=== PATIENT | female | born 1990 | race Caucasian/White ===

== ENCOUNTER 2016-04-09 11:48 | Outpatient (CLI) | payer MEDICAID ==
[2016-04-09 12:35] LABS: APPEARANCE,URINE CLOUDY; BILIRUBIN,URINE NEGATIVE (NEGATIVE); GLUCOSE, URINE NEGATIVE (NEGATIVE); KETONES,URINE TRACE mg/dL (NEGATIVE); LEUKOCYTE ESTERASE,URINE SMALL (NEGATIVE); NITRITE,URINE NEGATIVE (NEGATIVE); PROTEIN,URINE 100 mg/dL (NEGATIVE); UROBILINOGEN,URINE NEGATIVE mg/dL (<2.0)
[2016-04-09 12:55] LABS: URINE BARBITURATES SCREEN NEGATIVE; URINE METHADONE SCREEN NEGATIVE; URINE PHENCYCLIDINE SCREEN NEGATIVE
--- NOTE | 2016-04-09 13:27 | Non Stress Test Report ---
Non Stress Test Datetime Report Generated by CPN: 04/09/2016 13:27 DEMOGRAPHIC EGA NST: 38.6 EGA NST: 34.3 INDICATION Indication for Study: Decreased Movement Indication for Study: Other Indication for Study (NST) Other: labor check MONITORING Monitor Explained: Monitor Explained; Test Explained; Patient Verbalized Understanding Monitor Explained: Monitor Explained; Test Explained; Patient Verbalized Understanding Time on Monitor: 04/09/2016 12:02 Time on Monitor: 03/09/2016 16:10 Time off Monitor: 04/09/2016 13:15 Time off Monitor: 03/09/2016 16:50 NST Duration: 73 NST Duration: 40 NST INTERVENTIONS NST Interventions: PO Hydration; Reposition Patient NST Interventions: PO Hydration; Reposition Patient; Other NST Interventions Other: CONSTANTINO Physician Notified NST: Dr. Johnson Physician Notified NST: Dr. Santamaria BABY A: [id number] BABY A Movement : Present Movement : Present Contraction Frequency : occasional Contraction Frequency : irregular FHR Baseline : 155 FHR Baseline : 135 Accelerations : 15X15 Accelerations : 15X15 Decelerations : None Decelerations : None Variability : Moderate 6-25bpm Variability : Moderate 6-25bpm NST Review: Meets Criteria for Reactive NST NST Review: Meets Criteria for Reactive NST NST Review and Verified By : Nehal Mai RN NST Results: Reactive NST Results: Reactive NST REPORT Report Trigger: Send Report
--- NOTE | 2016-04-10 12:16 | Antepartum Discharge Summary ---
Antepartum DC Datetime Report Generated by CPN: 04/10/2016 12:15 DIET/ACTIVITY/RESTRICTIONS Diet: Regular (04/09/2016 13:27:Patti Johnson RN) Activity: Normal Activity (04/09/2016 13:27:Patti Johnson, RN) TEACHING/INSTRUCTIONS/REFERRALS Instructions Given To: patient and patient's (04/09/2016 13:27:Patti Johnson RN) Instructions Understood: Patient Verbalized Understanding; Support Person Verbalized Understanding (04/09/2016 13:27:Patti Johnson RN) Referrals: None (04/09/2016 13:27:Patti Johnson RN) Educational Materials- Other: kick counts and dehydration (04/09/2016 13:27:Patti Johnson RN) DISCHARGE INFORMATION Discharged AMA: No (04/09/2016 13:27:Patti Johnson RN) Discharge Date/Time: 04/09/2016 13:25 (04/09/2016 13:27:Patti Johnson RN) Discharged To: Home (04/09/2016 13:27:Patti Johnson RN) Discharge Provider Name: Dr. Johnson (04/09/2016 13:27:Patti Johnson RN) Accompanied By: (04/09/2016 13:27:Patti Johnson RN) Discharge Method: Ambulatory (04/09/2016 13:27:Patti Johnson RN) Condition: Stable (04/09/2016 13:27:Patti Johnson RN) FOLLOW UP INFORMATION Follow Up With: [facility] (04/09/2016 13:27:Patti Johnson RN) Follow Up On: As Scheduled (04/09/2016 13:27:Patti Johnson RN) Follow Up Phone Number: [facility] - (04/09/2016 13:27:Patti Johnson RN) GENERAL INSTR-CALL PROVIDER IF: Contractions: Contractions or cramps become more frequent than 8 in one hour or 4 in 20 minutes; Regular painful contractions every 5 minutes or less for one hour. Time your contractions from the beginning of one to the beginning of the next (04/09/2016 13:27:Patti Johnson RN) Pressure: Pressure in your vagina or lower abdomen that may feel like the baby is pushing down (04/09/2016 13:27:Patti Johnson RN) Period Like Cramps: Period-like cramps or low dull backache that may come and go (04/09/2016 13:27:Patti Johnson RN) Cramps/Diarrhea: Abdominal cramps that may be accompanied by diarrhea (04/09/2016 13:27:Patti Johnson RN) Gush of Fluid/Blood: Gush of fluid or blood from your vagina (it is normal to have spotting after vaginal exam or intercourse) (04/09/2016 13:27:Patti Johnson RN) Vaginal Discharge: Change in the type or amount of vaginal discharge (04/09/2016 13:27:Patti Johnson RN) Decreased Movement: Your baby is not moving as much as usual- 4 movements in 1 hour after drinking and resting on side (04/09/2016 13:27:Patti Johnson RN) Temperature: Temperature greater than 100.0(F) orally (04/09/2016 13:27:Patti Johnson RN) Hypertension Signs/Symptoms: Severe headache which is not relieved 30 minutes after taking Tylenol(Acetaminophen); Blurry vision or spots before your eyes; Severe heartburn or pain on the upper right side of your abdomen that is not relieved by an antacid; Increased swelling in your face, hands or feet (04/09/2016 13:27:Patti Johnson RN) Urinary Output: Decreased urinary output or dark colored urine (04/09/2016 13:27:Patti Johnson RN)
--- NOTE | 2016-04-10 12:16 | L&D Current Admission ---
Current Admit Datetime Report Generated by CPN: 04/10/2016 12:16 ADMISSION INFORMATION Chief Complaint: Decreased Movement (04/09/2016 12:00:ADRYAN Luke
--- NOTE | 2016-04-10 12:17 | L&D Flow Sheet ---
LD Flowsheet Datetime Report Generated by CPN: 04/10/2016 12:17 Datetime: 04/09/2016 13:20 Communication Communication Comments: Kick counts and dehydration care notes reviewed with patient. patient verbalizes understanding (Patti Alex, RN) Datetime: 04/09/2016 13:15 Communication Communication Comments: monitors removed for patient discharge (Patti Johnson, RN) Communication Communication Comments: Dr. Johnson notified of patient with complaints of no movement since yesterday evening. Lab results reported, patient urged to drink more water. Order received to check patient's cervix and discharge patient home if less than 3 cm. (Patti Johnson, RN) Datetime: 04/09/2016 13:14 Vaginal Exam Dilatation (cm): 1.5 (Patti Johnson RN) Effacement (%): 60 (Patti Johnson RN) Station: -2 (Patti Johnson RN) Exam by: Barbara Johnson RN (Patti Johnson RN) Vaginal Bleeding: None (Patti Johnson RN) Cervix, Consistency: Moderate (Patti Johnson RN) Cervix, Position: Posterior (Patti Johnson RN) Datetime: 04/09/2016 13:04 Vital Signs NBP Sys/Clarisa/Mean (mmHg): 128 (QS system process) : 70 (QS system process) : 92 (QS system process) Pulse: 82 (QS system process) Datetime: 04/09/2016 12:49 Vital Signs NBP Sys/Clarisa/Mean (mmHg): 127 (QS system process) : 58 (QS system process) : 83 (QS system process) Pulse: 82 (QS system process) Datetime: 04/09/2016 12:34 Vital Signs NBP Sys/Clarisa/Mean (mmHg): 124 (QS system process) : 67 (QS system process) : 87 (QS system process) Pulse: 93 (QS system process) Datetime: 04/09/2016 12:19 Vital Signs NBP Sys/Clarisa/Mean (mmHg): 135 (QS system process) : 74 (QS system process) : 97 (QS system process) Pulse: 88 (QS system process) LaborFlag: OB Triage (QS system process) Datetime: 04/09/2016 12:04 Vital Signs NBP Sys/Clarisa/Mean (mmHg): 135 (QS system process) : 77 (QS system process) : 98 (QS system process) Pulse: 107 (QS system process) LaborFlag: OB Triage (QS system process) Datetime: 04/09/2016 12:00 Uterine Activity Monitor Interventions for UA: [place]pearl Adjusted (Patti Johnson RN) Resting Tone (Palpate): Relaxed (Patti Johnson RN) Assessment A Monitor Mode: External US (Patti Johnson, RN) Pain Pain Scale: 0 (Patti Johnson RN) Pain Presence: None/Denies (Patti Johnson RN) Pain Type: N/A (Patti Johnson RN) Pain Goal: 1 (Patti Johnsno RN) Pain Relief Measures: Comfort Measures (Patti Alex, RN) Pain Coping: Talking Through Contractions (Patti Johnson RN) Membrane Status: Intact (Patti Johnson RN) Vaginal Bleeding: None (Patti Johnson RN) Maternal Assessment Level of Consciousness: Fully Conscious (Patti Johnson RN) DTR's/Clonus: DTRs 2+; No Clonus (Patti Johnson RN) Headache: Denies (Patti Johnson RN) Breath Sounds, Left: Clear and Equal (Patti Johnson RN) Breath Sounds, Right: Clear and Equal (Patti Johnson RN) Nausea/Vomiting: Denies (Patti Johnson RN) RUQ Epigastric Pain: Present (Annotations: RUQ pain present. Patient states she has had pain since saturday) (Patti Johnson RN) Patient Care Oxygen Method: Room Air (Patti Johnson RN) Patient Position/Activity: Left Tilt; Semi-Fowlers (Patti Johnson RN) I/O Interventions: Popsicle (Patti Johnson RN) Teaching Instructional Method: Verbal (Patti Johnson, RN) Plan of Care: Plan of Care Discussed (Patti Johnson, RN) Unit Routine: [place] to Room; Call Galvin; Bed; Visiting Policy (Patti Johnson, RN) LaborFlag: OB Triage (QS system process) Datetime: 03/09/2016 16:42 LaborFlag: OB Triage (QS system process) Datetime: 03/09/2016 16:30 LaborFlag: OB Triage (QS system process) Datetime: 03/09/2016 16:27 LaborFlag: OB Triage (QS system process) Datetime: 03/09/2016 16:12 LaborFlag: OB Triage (QS system process) Datetime: 03/09/2016 15:57 LaborFlag: OB Triage (QS system process) Datetime: 03/09/2016 15:43 LaborFlag: OB Triage (QS system process) Datetime: 02/24/2016 21:36 LaborFlag: Antepartum (QS system process) Datetime: 02/24/2016 21:30 Temperature (C): 36.7 (QS system process) LaborFlag: Antepartum (QS system process) Datetime: 02/24/2016 20:30 LaborFlag: Antepartum (QS system process) Datetime: 02/24/2016 20:12 LaborFlag: Antepartum (QS system process)
--- NOTE | 2016-04-10 12:17 | L&D General Admission ---
General Admit Datetime Report Generated by CPN: 04/10/2016 12:16 INFORMATION Para: 1 (04/09/2016 13:27:Patti Johnson, RN) Baby, Number in Womb: 1 (04/09/2016 13:27:Patti Johnson, RN) CARE Height (in): 65 (02/24/2016 21:49:QS system process) ALLERGIES Medication Allergies: No Known Allergies (04/09/2016) (04/09/2016 13:30:QS system process) LABS Blood Type: O Positive (02/24/2016 19:27:Raina Tristan RN) Antibody Screen: Negative (02/24/2016 19:27:Raina Tristan RN) Hepatitis B: Negative (02/24/2016 19:27:Raina Tristan RN) Rubella: Immune (02/24/2016 19:27:Raina Tristan RN)
--- NOTE | 2016-04-10 12:17 | L&D Discharge Summary ---
OB Discharge Summary Datetime Report Generated by CPN: 04/10/2016 12:17 DISCHARGE DIAGNOSIS Diagnosis/Symptoms: Decreased Movement Diagnoses/Symptoms Other: IUP at 38.6, movement present Treatment/Procedures Other: CONSTANTINO, PO hydration, reposition Gestation: 38.6 Number of Babies in Womb: 1 Parity: 1 DIET/ACTIVITY/RESTRICTIONS Diet: Regular Activity: Normal Activity TEACHING/INSTRUCTIONS/REFERRALS Instructions Given To: patient and patient's Instructions Understood: Patient Verbalized Understanding; Support Person Verbalized Understanding Referrals: None Educational Materials- Other: kick counts and dehydration DISCHARGE INFORMATION Discharged AMA: No Discharge Date/Time: 04/09/2016 13:25 Discharged To: Home Discharge Provider Name: Dr. Johnson Accompanied By: Discharge Method: Ambulatory Condition: Stable FOLLOW UP INFORMATION Follow Up With: [facility] Follow Up On: As Scheduled Follow Up Phone Number: [facility] - Comments: pt states verbal understanding of discharge instructions, denies questions or concerns. pt states she has appt on Saturday at 1330 and will keep appt as scheduled. GENERAL INSTR-CALL PROVIDER IF: Contractions: Contractions or cramps become more frequent than 8 in one hour or 4 in 20 minutes; Regular painful contractions every 5 minutes or less for one hour. Time your contractions from the beginning of one to the beginning of the next Pressure: Pressure in your vagina or lower abdomen that may feel like the baby is pushing down Period Like Cramps: Period-like cramps or low dull backache that may come and go Cramps/Diarrhea: Abdominal cramps that may be accompanied by diarrhea Gush of Fluid/Blood: Gush of fluid or blood from your vagina (it is normal to have spotting after vaginal exam or intercourse) Vaginal Discharge: Change in the type or amount of vaginal discharge Decreased Movement: Your baby is not moving as much as usual- 4 movements in 1 hour after drinking and resting on side Temperature: Temperature greater than 100.0(F) orally
--- NOTE | 2016-04-10 12:23 | Non Stress Test Report ---
Non Stress Test Datetime Report Generated by CPN: 04/10/2016 12:22 DEMOGRAPHIC EGA NST: 38.6 INDICATION Indication for Study: Decreased Movement MONITORING Monitor Explained: Monitor Explained; Test Explained; Patient Verbalized Understanding Time on Monitor: 04/09/2016 12:02 Time off Monitor: 04/09/2016 13:15 NST Duration: 73 NST INTERVENTIONS NST Interventions: PO Hydration; Reposition Patient Physician Notified NST: Dr. Alex BABY A Movement : Present Contraction Frequency : occasional FHR Baseline : 155 Accelerations : 15X15 Decelerations : None Variability : Moderate 6-25bpm NST Review: Meets Criteria for Reactive NST NST Review and Verified By : Nehal Mai RN NST Results: Reactive NST REPORT Report Trigger: Send Report
--- NOTE | 2016-04-11 06:08 | L&D General Admission ---
General Admit Datetime Report Generated by CPN: 04/11/2016 06:00 INFORMATION Patient Age: 25 (02/24/2016 19:02:QS system process) EDC: 04/17/2016 00:00 (02/24/2016 19:27:GOLDIE Meade) : 2 (02/24/2016 19:27:Chelsy Guerra RN) Para: 1 (04/09/2016 13:27:Patti Johnson RN) Term: 1 (02/24/2016 19:27:Chelsy Guerra RN) : 0 (02/24/2016 19:27:Chelsy Guerra RN) Spontaneous Abortions: 0 (02/24/2016 19:27:Chelsy Guerra RN) Induced Abortions: 0 (02/24/2016 19:27:Chelsy Guerra RN) Livin (02/24/2016 19:27:Chelsy Guerra RN) Cesareans: 0 (02/24/2016 19:27:Chelsy Guerra RN) VBACs: 0 (02/24/2016 19:27:Chelsy Guerra RN) Ectopic: 0 (02/24/2016 19:27:Chelsy Guerra RN) Multiple Births: 0 (02/24/2016 19:27:Chelsy Guerra RN) Baby, Number in Womb: 1 (04/09/2016 13:27:Patti Johnson RN) CARE Primary Computer Aided Design Operator: [email or web address] (02/24/2016 19:27:Chelsy Guerra RN) Adequate Care: Yes (02/24/2016 19:27:Chelsy Guerra RN) Height (in): 65 (02/24/2016 21:49:QS system process) ALLERGIES Medication Allergy: No (02/24/2016 19:27:Chelsy Guerra RN) Medication Allergies: No Known Allergies (04/09/2016) (04/09/2016 13:30:QS system process) Latex Allergy: No Latex Allergies (02/24/2016 19:27:Chelsy Guerra RN) Food Allergies: None (02/24/2016 19:27:Chelsy Guerra, RN) Environmental Allergies: None (02/24/2016 19:27:Chelsy Guerra, RN) COMMUNICATION Primary Language: East Timorese (02/24/2016 19:27:Chelsy Guerra, RN) Communication Barrier(s): None (02/24/2016 19:27:Chelsy Guerra, RN) DEMOGRAPHICS Address: [address] [place] [id number] (02/24/2016 19:02:QS system process) Zipcode: [phone] (02/24/2016 19:02:QS system process) Home (03/09/2016 15:22:QS system process) SSN: [id number] (02/24/2016 19:02:QS system process) Next of Kin Name: DERICK GOMEZ (02/24/2016 19:02:QS system process) Next of Kin (03/09/2016 15:22:QS system process) Next of Kin Relationship: SPO (02/24/2016 19:02:QS system process) Date of : 1990 (02/24/2016 19:02:QS system process) Marital Status: (02/24/2016 19:02:QS system process) Sex: Female (02/24/2016 19:02:QS system process) Race: (02/24/2016 19:02:QS system process) Ethnicity: Non- or (02/24/2016 19:02:QS system process) Rastafari: Bahai (02/24/2016 19:02:QS system process) DRUG AND ALCOHOL USE Alcohol: No (02/24/2016 19:27:Chelsy Guerra RN) Cigarettes: Never Smoker. [id number] (02/24/2016 19:27:Chelsy Charlie RN) Marijuana: No (02/24/2016 19:27:Chelsy Charlie RN) Cocaine: No (02/24/2016 19:27:Chelsygregory Guerra RN) Other Illicit Drugs: No (02/24/2016 19:27:Chelsy Guerra, RN) VACCINE HISTORY Influenza Vaccine: No (02/24/2016 19:27:Chelsy Guerra RN) Pneumococcal Vaccine: No (02/24/2016 19:27:Chelsy Guerra RN) Tetanus Vaccine: No (02/24/2016 19:27:Chelsy Guerra RN) Tdap Vaccine: No (02/24/2016 19:27:Chelsy Guerra RN) Hepatitis B Vaccine: Yes (02/24/2016 19:27:Chelsy Guerra RN) Pen Rider: [facility] (02/24/2016 19:27:Chelsy Guerra RN) Feeding Preference: Breast (02/24/2016 19:27:Chelsy Guerra RN) Benefit of Breast Feed Discussed: Yes (02/24/2016 19:27:Chelsy Guerra RN) Circumcision: Yes (02/24/2016 19:27:Chelsy Guerra RN) Classes Attended: No (02/24/2016 19:27:Chelsy Guerra RN) Tubal Ligation: Yes (02/24/2016 19:27:Chelsy Guerra RN) Tubal Authorization Signed: N/A (02/24/2016 19:27:Chelsy Guerra RN) Consent: N/A (02/24/2016 19:27:Chelsy Guerra RN) Consent Signed: N/A (02/24/2016 19:27:Chelsy Guerra RN) Pain Management Plans: Epidural (02/24/2016 19:27:Chelsy Guerra RN) Plans for Labor and Delivery: None (02/24/2016 19:27:Chelsy Guerra RN) Support Person: Derick (02/24/2016 19:27:Chelsy Guerra RN) Cultural/Spritual Practice: No (02/24/2016 19:27:Chelsy Guerra RN) Spir/Cult Dietary Needs: No (02/24/2016 19:27:Chelsy Guerra RN) LIVING SITUATION/DISCHARGE PLAN Living Arrangements: House (02/24/2016 19:27:Chelsy Guerra RN) Adequate Access to:: Electric; Heat; Refrigeration; Plumbing/Running water; Phone; Transportation (02/24/2016 19:27:Chelsy Guerra RN) WIC Program: Yes (02/24/2016 19:27:Chelsy Guerra RN) Discharge Physical Trainer Person: Derick (02/24/2016 19:27:Chelsy Guerra RN) Person to Help after Discharge: Derick (02/24/2016 19:27:Chelsy Guerra RN) Currently Using Commun Resources: Yes (02/24/2016 19:27:Chelsy Guerra RN) Specify Current Resource Used: Medicaid, EBT (02/24/2016 19:27:Chelsy Guerra RN) Outside Agency/[employer] Kindergarten Teacher: No (02/24/2016 19:27:Chelsy Guerra RN) Car Seat for Discharge: Yes (02/24/2016 19:27:Chelsy Guerra RN) Adoption Requested: No (02/24/2016 19:27:Chelsy Guerra RN) Pt Contact w/ Post : N/A (02/24/2016 19:27:Chelsy Guerra RN) LABS Blood Type: O Positive (02/24/2016 19:27:Raina Tristan RN) Antibody Screen: Negative (02/24/2016 19:27:Raina Tristan RN) Hemoglobin: 10.2 L (03/09/2016 16:11:QS system process) Hematocrit: 30.7 L (03/09/2016 16:11:QS system process) MCV: 89 (03/09/2016 16:11:QS system process) Hepatitis B: Negative (02/24/2016 19:27:Raina Tristan RN) Rubella: Immune (02/24/2016 19:27:Raina Tristan RN) OB/PREVIOUS HISTORY Previous Procedures: Ultrasound; NST (02/24/2016 19:27:Chelsy Guerra RN) Current Procedures: Ultrasound; NST (02/24/2016 19:27:Chelsy Guerra RN) History of Previous : No (02/24/2016 19:27:Chelsy Guerra RN) History of Gestational Diabetes: No (02/24/2016 19:27:Chelsy Guerra RN) History of PIH: Yes (02/24/2016 19:27:Chelsy Guerra RN) History of Incompetent Cervix: No (02/24/2016 19:27:Chelsy Guerra RN) History of Placenta Previa/Abrup: No (02/24/2016 19:27:Chelsy Guerra RN) History of Macrosomia: No (02/24/2016 19:27:Chelsy Guerra RN) History of IUGR: No (02/24/2016 19:27:Chelsy Guerra RN) History of Hemorrhage: No (02/24/2016 19:27:Chelsy Guerra RN) History of Loss/Stillborn: No (02/24/2016 19:27:Chelsy Guerra RN) History of : No (02/24/2016 19:27:Chelsy Guerra RN) History of D (Rh) Sensitization: No (02/24/2016 19:27:Chelsy Guerra RN) History Recurrent Loss/Stillborn: No (02/24/2016 19:27:Chelsy Guerra RN) History Depression/PP Depression: No (02/24/2016 19:27:Chelsy Guerra RN) History of Uterine Anomaly/PHILIP: No (02/24/2016 19:27:Chelsy Guerra RN) History of Infertility: No (02/24/2016 19:27:Chelsy Guerra RN) History of ART Treatment: No (02/24/2016 19:27:Chelsy Guerra RN) History of PHILIP: No (02/24/2016 19:27:Chelsy Guerra RN) Comments Obstetrical History: G1: 2014 induced for pre-e G2: current (02/24/2016 19:27:Chelsy Guerra RN) MEDICAL HISTORY Med Hx Diabetes: No (02/24/2016 19:27:Chelsy Guerra RN) Med Hx Hypertension: No (02/24/2016 19:27:Chelsy Guerra RN) Med Hx Heart Disease: No (02/24/2016 19:27:Chelsy Guerra RN) Med Hx Autoimmune Disorder: No (02/24/2016 19:27:Chelsy Guerra RN) Med Hx Kidney Disease/UTI: No (02/24/2016 19:27:Chelsy Guerra RN) Med Hx Neurologic/Epilepsy: No (02/24/2016 19:27:Chelsy Guerra RN) Med Hx Psychiatric Disorders: No (02/24/2016 19:27:Chelsy Guerra RN) Med Hx Hepatitis/Liver Disease: No (02/24/2016 19:27:Chelsy Guerra RN) Med Hx Varicosities/Phlebitis: No (02/24/2016 19:27:Chelsy Guerra RN) Med Hx Thyroid Dysfunction: No (02/24/2016 19:27:Chelsy Guerra RN) Med Hx Trauma/Violence: No (02/24/2016 19:27:Chelsy Guerra RN) Med Hx Blood Transfusion: No (02/24/2016 19:27:Chelsy Guerra RN) Med Hx Pulmonary (Asthma,TB): No (02/24/2016 19:27:Chelsy Guerra RN) Med Hx Breast: No (02/24/2016 19:27:Chelsy Guerra RN) Med Hx MARKET INTELLIGENCE CONSULTANT Surgery: No (02/24/2016 19:27:Chelsy Guerra RN) Med Hx Hospitalization/Surgery: Yes (02/24/2016 19:27:Chelsy Guerra RN) Med Hx Anesthetic Complications: No (02/24/2016 19:27:Chelsy Guerra RN) Med Hx Abnormal Pap Smear: No (02/24/2016 19:27:Chelsy Guerra RN) Other Medical Diseases: No (02/24/2016 19:27:Chelsy Guerra RN) Med Hx Significant Family Hx: No (02/24/2016 19:27:Chelsy Guerra RN) Details of Med/Surg Hx: childbirth (02/24/2016 19:27:Chelsy Guerra RN) INFECTIOUS HISTORY Inf Hx Gonorrhea: No (02/24/2016 19:27:Chelsy Guerra RN) Inf Hx Chlamydia: No (02/24/2016 19:27:Chelsy Guerra RN) Inf Hx Syphilis: No (02/24/2016 19:27:Chelsy Guerra RN) Inf Hx HIV/AIDS: No (02/24/2016 19:27:Chelsy Guerra RN) Inf Hx Human Papilloma Virus: No (02/24/2016 19:27:Chelsy Guerra RN) Inf Hx Pt/Partner Genital Herpes: No (02/24/2016 19:27:Chelsy Guerra RN) Inf Hx Tuberculosis/Exposure: No (02/24/2016 19:27:Chelsy Guerra RN) Inf Hx Hepatitis B,C: No (02/24/2016 19:27:Chelsy Guerra RN) Inf Hx Rash or Viral Illness: No (02/24/2016 19:27:Chelsy Guerra RN) GENETIC HISTORY Gen Hx Age >=35 at [place]: No (02/24/2016 19:27:Chelsy Guerra RN) Gen Hx Thalassemia: No (02/24/2016 19:27:Chelsy Guerra RN) Gen Hx Congenital Heart Defect: No (02/24/2016 19:27:Chelsy Guerra RN) Gen Hx Neural Tube Defect: No (02/24/2016 19:27:Chelsy Guerra RN) Gen Hx Down's Syndrome: No (02/24/2016 19:27:Chelsy Guerra RN) Gen Hx Angel-Sachs: No (02/24/2016 19:27:Chelsy Guerra RN) Gen Hx Omar: No (02/24/2016 19:27:Cehlsy Guerra RN) Gen Hx Familial Dysautonomia: No (02/24/2016 19:27:Chelsy Guerra RN) Gen Hx Sickle Cell Disease/Trait: No (02/24/2016 19:27:Chelsy Guerra RN) Gen Hx Hemophilia/Blood Disorder: No (02/24/2016 19:27:Chelsy Guerra RN) Gen Hx Muscular Dystrophy: No (02/24/2016 19:27:Chelsy Guerra RN) Gen Hx Cystic Fibrosis: No (02/24/2016 19:27:Chelsy Guerra RN) Gen Hx [place] Chorea: No (02/24/2016 19:27:Chelsy Guerra RN) Gen Hx Mental Retardation/Autism: No (02/24/2016 19:27:Chelsy Guerra RN) Gen Hx Tested for Fragile X: No (02/24/2016 19:27:Chelsy Guerra RN) Gen Hx Other Inher/Chromosomal: No (02/24/2016 19:27:Chelsy Guerra RN) Gen Hx Maternal Metabolic DO: No (02/24/2016 19:27:Chelsy Guerra RN) Gen Hx Pt Father or FOB Defect: No (02/24/2016 19:27:Chelsy Guerra RN) Gen Hx Other Genetic History: No (02/24/2016 19:27:Chelsy Guerra RN) Gen Hx Drugs/Meds since LMP: No (02/24/2016 19:27:Chelsy Guerra RN)
--- NOTE | 2016-04-11 06:08 | L&D Current Admission ---
Current Admit Datetime Report Generated by CPN: 04/11/2016 06:00 ADMISSION INFORMATION Chief Complaint: Decreased Movement (04/09/2016 12:00:ADRYAN Luke
--- NOTE | 2016-04-12 06:07 | L&D General Admission ---
General Admit Datetime Report Generated by CPN: 04/12/2016 06:00 INFORMATION Patient Age: 25 (02/24/2016 19:02:QS system process) EDC: 04/17/2016 00:00 (02/24/2016 19:27:GOLDIE Meade) : 2 (02/24/2016 19:27:Chelsy Guerra RN) Para: 1 (04/09/2016 13:27:Patti Johnson RN) Term: 1 (02/24/2016 19:27:Chelsy Guerra RN) : 0 (02/24/2016 19:27:Chelsy Geurra RN) Spontaneous Abortions: 0 (02/24/2016 19:27:Chelsy Guerra RN) Induced Abortions: 0 (02/24/2016 19:27:Chelsy Guerra RN) Livin (02/24/2016 19:27:Chelsy Guerra RN) Cesareans: 0 (02/24/2016 19:27:Chelsy Guerra RN) VBACs: 0 (02/24/2016 19:27:Chelsy Guerra RN) Ectopic: 0 (02/24/2016 19:27:Chelsy Guerra RN) Multiple Births: 0 (02/24/2016 19:27:Chelsy Guerra RN) Baby, Number in Womb: 1 (04/09/2016 13:27:Patti Johnson RN) CARE Primary Coin Purse Framer: [facility] (02/24/2016 19:27:Chelsy Guerra RN) Adequate Care: Yes (02/24/2016 19:27:Chelsy Guerra RN) Height (in): 65 (02/24/2016 21:49:QS system process) ALLERGIES Medication Allergy: No (02/24/2016 19:27:Chelsy Guerra RN) Medication Allergies: No Known Allergies (04/09/2016) (04/09/2016 13:30:QS system process) Latex Allergy: No Latex Allergies (02/24/2016 19:27:Chelsy Guerra RN) Food Allergies: None (02/24/2016 19:27:Chelsy Guerra, RN) Environmental Allergies: None (02/24/2016 19:27:Chelsy Guerra, RN) COMMUNICATION Primary Language: Kittitian (02/24/2016 19:27:Chelsy Guerra, RN) Communication Barrier(s): None (02/24/2016 19:27:Chelsy Guerra, RN) DEMOGRAPHICS Address: [address] [place] [id number] (02/24/2016 19:02:QS system process) Zipcode: [id number] (02/24/2016 19:02:QS system process) Home (03/09/2016 15:22:QS system process) SSN: [id number] (02/24/2016 19:02:QS system process) Next of Kin Name: DERICK GOMEZ (02/24/2016 19:02:QS system process) Next of Kin (03/09/2016 15:22:QS system process) Next of Kin Relationship: SPO (02/24/2016 19:02:QS system process) Date of : 1990 (02/24/2016 19:02:QS system process) Marital Status: (02/24/2016 19:02:QS system process) Sex: Female (02/24/2016 19:02:QS system process) Race: (02/24/2016 19:02:QS system process) Ethnicity: Non- or (02/24/2016 19:02:QS system process) Methodist: Jewish (02/24/2016 19:02:QS system process) DRUG AND ALCOHOL USE Alcohol: No (02/24/2016 19:27:Chelsy Guerra RN) Cigarettes: Never Smoker. [id number] (02/24/2016 19:27:Chelsy Charlie RN) Marijuana: No (02/24/2016 19:27:Chelsy Charlie RN) Cocaine: No (02/24/2016 19:27:Chelsygregory Guerra RN) Other Illicit Drugs: No (02/24/2016 19:27:Chelsy Guerra, RN) VACCINE HISTORY Influenza Vaccine: No (02/24/2016 19:27:Chelsy Guerra RN) Pneumococcal Vaccine: No (02/24/2016 19:27:Chelsy Guerra RN) Tetanus Vaccine: No (02/24/2016 19:27:Chelsy Guerra RN) Tdap Vaccine: No (02/24/2016 19:27:Chelsy Guerra RN) Hepatitis B Vaccine: Yes (02/24/2016 19:27:Chelsy Guerra RN) [facility]: [facility] (02/24/2016 19:27:Chelsy Guerra RN) Feeding Preference: Breast (02/24/2016 19:27:Chelsy Guerra RN) Benefit of Breast Feed Discussed: Yes (02/24/2016 19:27:Chelsy Guerra RN) Circumcision: Yes (02/24/2016 19:27:Chelsy Guerra RN) Classes Attended: No (02/24/2016 19:27:Chelsy Guerra RN) Tubal Ligation: Yes (02/24/2016 19:27:Chelsy Guerra RN) Tubal Authorization Signed: N/A (02/24/2016 19:27:Chelsy Guerra RN) Consent: N/A (02/24/2016 19:27:Chelsy Guerra RN) Consent Signed: N/A (02/24/2016 19:27:Chelsy Guerra RN) Pain Management Plans: Epidural (02/24/2016 19:27:Chelsy Guerra RN) Plans for Labor and Delivery: None (02/24/2016 19:27:Chelsy Guerra RN) Support Person: Derick (02/24/2016 19:27:Chelsy Guerra RN) Cultural/Spritual Practice: No (02/24/2016 19:27:Chelsy Guerra RN) Spir/Cult Dietary Needs: No (02/24/2016 19:27:Chelsy Guerra RN) LIVING SITUATION/DISCHARGE PLAN Living Arrangements: House (02/24/2016 19:27:Chelsy Guerra RN) Adequate Access to:: Electric; Heat; Refrigeration; Plumbing/Running water; Phone; Transportation (02/24/2016 19:27:Chelsy Guerra RN) WIC Program: Yes (02/24/2016 19:27:Chelsy Guerra RN) Discharge Data Conversion Operator Person: Derick (02/24/2016 19:27:Chelsy Guerra RN) Person to Help after Discharge: Derick (02/24/2016 19:27:Chelsy Guerra RN) Currently Using Commun Resources: Yes (02/24/2016 19:27:Chelsy Guerra RN) Specify Current Resource Used: Medicaid, EBT (02/24/2016 19:27:Chelsy Guerra RN) Outside Agency/Bank Vault Clerk: No (02/24/2016 19:27:Chelsy Guerra RN) Car Seat for Discharge: Yes (02/24/2016 19:27:Chelsy Guerra RN) Adoption Requested: No (02/24/2016 19:27:Chelsy Guerra RN) Pt Contact w/ Post : N/A (02/24/2016 19:27:Chelsy Guerra RN) LABS Blood Type: O Positive (02/24/2016 19:27:Raina Tristan RN) Antibody Screen: Negative (02/24/2016 19:27:Raina Tristan RN) Hemoglobin: 10.2 L (03/09/2016 16:11:QS system process) Hematocrit: 30.7 L (03/09/2016 16:11:QS system process) MCV: 89 (03/09/2016 16:11:QS system process) Hepatitis B: Negative (02/24/2016 19:27:Raina Tristan RN) Rubella: Immune (02/24/2016 19:27:Raina Tristan RN) OB/PREVIOUS HISTORY Previous Procedures: Ultrasound; NST (02/24/2016 19:27:Chelsy Guerra RN) Current Procedures: Ultrasound; NST (02/24/2016 19:27:Chelsy Guerra RN) History of Previous : No (02/24/2016 19:27:Chelsy Guerra RN) History of Gestational Diabetes: No (02/24/2016 19:27:Chelsy Guerra RN) History of PIH: Yes (02/24/2016 19:27:Chelsy Guerra RN) History of Incompetent Cervix: No (02/24/2016 19:27:Chelsy Guerra RN) History of Placenta Previa/Abrup: No (02/24/2016 19:27:Chelsy Guerra RN) History of Macrosomia: No (02/24/2016 19:27:Chelsy Guerra RN) History of IUGR: No (02/24/2016 19:27:Chelsy Guerra RN) History of Hemorrhage: No (02/24/2016 19:27:Chelsy Guerra RN) History of Loss/Stillborn: No (02/24/2016 19:27:Chelsy Guerra RN) History of : No (02/24/2016 19:27:Chelsy Guerra RN) History of D (Rh) Sensitization: No (02/24/2016 19:27:Chelsy Guerra RN) History Recurrent Loss/Stillborn: No (02/24/2016 19:27:Chelsy Guerra RN) History Depression/PP Depression: No (02/24/2016 19:27:Chelsy Guerra RN) History of Uterine Anomaly/PHILIP: No (02/24/2016 19:27:Chelsy Guerra RN) History of Infertility: No (02/24/2016 19:27:Chelsy Guerra RN) History of ART Treatment: No (02/24/2016 19:27:Chelsy Guerra RN) History of PHILIP: No (02/24/2016 19:27:Chelsy Guerra RN) Comments Obstetrical History: G1: 2014 induced for pre-e G2: current (02/24/2016 19:27:Chelsy Guerra RN) MEDICAL HISTORY Med Hx Diabetes: No (02/24/2016 19:27:Chelsy Guerra RN) Med Hx Hypertension: No (02/24/2016 19:27:Chelsy Guerra RN) Med Hx Heart Disease: No (02/24/2016 19:27:Chelsy Guerra RN) Med Hx Autoimmune Disorder: No (02/24/2016 19:27:Chelsy Guerra RN) Med Hx Kidney Disease/UTI: No (02/24/2016 19:27:Chelsy Guerra RN) Med Hx Neurologic/Epilepsy: No (02/24/2016 19:27:Chelsy Guerra RN) Med Hx Psychiatric Disorders: No (02/24/2016 19:27:Chelsy Guerra RN) Med Hx Hepatitis/Liver Disease: No (02/24/2016 19:27:Chelsy Guerra RN) Med Hx Varicosities/Phlebitis: No (02/24/2016 19:27:Chelsy Guerra RN) Med Hx Thyroid Dysfunction: No (02/24/2016 19:27:Chelsy Guerra RN) Med Hx Trauma/Violence: No (02/24/2016 19:27:Chelsy Guerra RN) Med Hx Blood Transfusion: No (02/24/2016 19:27:Chelsy Guerra RN) Med Hx Pulmonary (Asthma,TB): No (02/24/2016 19:27:Chelsy Guerra RN) Med Hx Breast: No (02/24/2016 19:27:Chelsy Guerra RN) Med Hx INTERCHANGE AGENT Surgery: No (02/24/2016 19:27:Chelsy Guerra RN) Med Hx Hospitalization/Surgery: Yes (02/24/2016 19:27:Chelsy Guerra RN) Med Hx Anesthetic Complications: No (02/24/2016 19:27:Chelsy Guerra RN) Med Hx Abnormal Pap Smear: No (02/24/2016 19:27:Chelsy Guerra RN) Other Medical Diseases: No (02/24/2016 19:27:Chelsy Guerra RN) Med Hx Significant Family Hx: No (02/24/2016 19:27:Chelsy Guerra RN) Details of Med/Surg Hx: childbirth (02/24/2016 19:27:Chelsy Guerra RN) INFECTIOUS HISTORY Inf Hx Gonorrhea: No (02/24/2016 19:27:Chelsy Guerra RN) Inf Hx Chlamydia: No (02/24/2016 19:27:Chelsy Guerra RN) Inf Hx Syphilis: No (02/24/2016 19:27:Chelsy Guerra RN) Inf Hx HIV/AIDS: No (02/24/2016 19:27:Chelsy Guerra RN) Inf Hx Human Papilloma Virus: No (02/24/2016 19:27:Chelsy Guerra RN) Inf Hx Pt/Partner Genital Herpes: No (02/24/2016 19:27:Chelsy Guerra RN) Inf Hx Tuberculosis/Exposure: No (02/24/2016 19:27:Chelsy Guerra RN) Inf Hx Hepatitis B,C: No (02/24/2016 19:27:Chelsy Guerra RN) Inf Hx Rash or Viral Illness: No (02/24/2016 19:27:Chelsy Guerra RN) GENETIC HISTORY Gen Hx Age >=35 at [place]: No (02/24/2016 19:27:Chelsy Guerra RN) Gen Hx Thalassemia: No (02/24/2016 19:27:Chelsy Guerra RN) Gen Hx Congenital Heart Defect: No (02/24/2016 19:27:Chelsy Guerra RN) Gen Hx Neural Tube Defect: No (02/24/2016 19:27:Chelsy Guerra RN) Gen Hx Down's Syndrome: No (02/24/2016 19:27:Chelsy Guerra RN) Gen Hx Angel-Sachs: No (02/24/2016 19:27:Chelsy Guerra RN) Gen Hx Omar: No (02/24/2016 19:27:Chelsy Guerra RN) Gen Hx Familial Dysautonomia: No (02/24/2016 19:27:Chelsy Guerra RN) Gen Hx Sickle Cell Disease/Trait: No (02/24/2016 19:27:Chelsy Guerra RN) Gen Hx Hemophilia/Blood Disorder: No (02/24/2016 19:27:Chelsy Guerra RN) Gen Hx Muscular Dystrophy: No (02/24/2016 19:27:Chelsy Guerra RN) Gen Hx Cystic Fibrosis: No (02/24/2016 19:27:Chelsy Guerra RN) Gen Hx Huntingtons Chorea: No (02/24/2016 19:27:Chelsy Guerra RN) Gen Hx Mental Retardation/Autism: No (02/24/2016 19:27:Chelsy Guerra RN) Gen Hx Tested for Fragile X: No (02/24/2016 19:27:Chelsy Guerra RN) Gen Hx Other Inher/Chromosomal: No (02/24/2016 19:27:Chelsy Guerra RN) Gen Hx Maternal Metabolic DO: No (02/24/2016 19:27:Chelsy Guerra RN) Gen Hx Pt Father or FOB Defect: No (02/24/2016 19:27:Chelsy Guerra RN) Gen Hx Other Genetic History: No (02/24/2016 19:27:Chelsy Guerra RN) Gen Hx Drugs/Meds since LMP: No (02/24/2016 19:27:Chelsy Guerra RN)
--- NOTE | 2016-04-12 06:07 | L&D Current Admission ---
Current Admit Datetime Report Generated by CPN: 04/12/2016 06:00 ADMISSION INFORMATION Chief Complaint: Decreased Movement (04/09/2016 12:00:ADRYAN Luke
== END 2016-04-09 13:25 | disposition home or self-care (01) ==
LOC: LC 11:48
PROVIDERS: ATTEND Obstetrics & Gynecology
PROC: 4A1HXCZ Monitoring of Products of Conception, Cardiac Rate, External Approach (ICD-10-PCS; principal; 2016-04-09)
DX: O36.8130 Decreased fetal movements, third trimester, not applicable or unspecified (principal); Z3A.38 38 weeks gestation of pregnancy
CPT/HCPCS: 59025; 81005; G0479; 80307

== ENCOUNTER 2016-04-12 11:50 | Outpatient (CLI) | payer MEDICAID ==
[2016-04-12 12:40] LABS: APPEARANCE,URINE SLIGHTLY-CLOUDY; BILIRUBIN,URINE NEGATIVE (NEGATIVE); GLUCOSE, URINE NEGATIVE (NEGATIVE); KETONES,URINE NEGATIVE (NEGATIVE); LEUKOCYTE ESTERASE,URINE NEGATIVE (NEGATIVE); NITRITE,URINE NEGATIVE (NEGATIVE); PROTEIN,URINE 30 mg/dL (NEGATIVE); URINE SPECIFIC GRAVITY 1.028; UROBILINOGEN,URINE NEGATIVE mg/dL (<2.0)
[2016-04-12 12:48] LABS: URINE BARBITURATES SCREEN NEGATIVE; URINE METHADONE SCREEN NEGATIVE; URINE PHENCYCLIDINE SCREEN NEGATIVE
[2016-04-12 12:56] LABS: ABSOLUTE BASOPHILS # (AUTO) 0.1 10^3/uL (0.0-0.2); ABSOLUTE LYMPHOCYTES (AUTO) 1.6 10^3/uL (0.5-4.7); ABSOLUTE MONOCYTES (AUTO) 0.7 10^3/uL (0.1-1.4); ABSOLUTE NEUT (AUTO) 7.9 10^3/uL (1.7-8.2); BASOPHILS % (AUTO) 0.5 % (0-2); EOSINOPHILS % (AUTO) 0.5 % (0-6); HEMATOCRIT 32.1 % (36.0-47.0); HEMOGLOBIN 10.9 g/dL (12.0-15.5); HGB HCT DIFFERENCE 0.6; LYMPHOCYTES % (AUTO) 15.8 % (13-45); MEAN CORPUSCULAR HEMOGLOBIN 28.7 pg (27.0-33.4); MEAN CORPUSCULAR HGB CONC 33.9 g/dL (32.0-36.0); MEAN CORPUSCULAR VOLUME 85 fl (80-97); MONOCYTES % (AUTO) 6.8 % (3-13); RED BLOOD COUNT 3.78 10^6/uL (3.72-5.28); RED CELL DISTRIBUTION WIDTH 14.9 % (11.5-14.0); SEGMENTED NEUTROPHILS % (AUTO) 76.4 % (42-78); WHITE BLOOD COUNT 10.3 10^3/uL (4.0-10.5)
[2016-04-12 13:13] LABS: ALANINE AMINOTRANSFERASE 23 U/L (9-52); ALBUMIN 3.1 g/dL (3.5-5.0); ALKALINE PHOSPHATASE 127 U/L (38-126); ANION GAP 8 (5-19); ASPARTATE AMINO TRANSFERASE 19 U/L (14-36); BILIRUBIN,TOTAL 0.3 mg/dL (0.2-1.3); BLOOD UREA NITROGEN 12 mg/dL (7-20); CALCIUM 9.1 mg/dL (8.4-10.2); CARBON DIOXIDE 21 mmol/L (22-30); CHLORIDE 107 mmol/L (98-107); CREATININE RESULT 0.74 mg/dL (0.52-1.25); GLUCOSE 95 mg/dL (75-110); LDH 443 U/L (313-618); POTASSIUM 4.5 mmol/L (3.6-5.0); SODIUM 135.5 mmol/L (137-145); TOTAL PROTEIN 5.8 g/dL (6.3-8.2); URIC ACID 6.5 mg/dL (2.5-6.2)
[2016-04-12] MEDS ORDERED: ACETAMINOPHEN 325 MG TABLET ONE (13:38)
[2016-04-12] MEDS ORDERED: ACETAMINOPHEN 325 MG TABLET PO ONE (13:40)
--- NOTE | 2016-04-13 04:46 | Antepartum Discharge Summary ---
Antepartum DC Datetime Report Generated by CPN: 04/13/2016 04:45 Diet: Regular (04/12/2016 13:57:Melinda Disla RN) Activity: Normal Activity (04/12/2016 13:57:Melinda Disla RN) Instructions Given To: Patient, Support (04/12/2016 13:57:Melinda Disla RN) Instructions Understood: Patient Verbalized Understanding; Support Person Verbalized Understanding (04/12/2016 13:57:Melinda Disla RN) Referrals: None (04/12/2016 13:57:Melinda Disla RN) Educational Materials- Other: Kick Counts, Pre-Eclampsia, 24 Hour Urine (04/12/2016 13:57:Melinda Disla RN) Discharged AMA: No (04/12/2016 13:57:Melinda Disla RN) Discharge Date/Time: 04/12/2016 13:57 (04/12/2016 13:57:Melinda Disla RN) Discharged To: Home (04/12/2016 13:57:Melinda Disla RN) Discharge Provider Name: Dr. Richmond (04/12/2016 13:57:Melinda Disla RN) Accompanied By: RAUL (04/12/2016 13:57:Melinda Disla RN) Discharge Method: Ambulatory (04/12/2016 13:57:Melinda Disla RN) Condition: Stable (04/12/2016 13:57:Melinda Disla RN) Follow Up With: [facility] (04/12/2016 13:57:Melinda Disla RN) Follow Up On: Tomorrow (04/12/2016 13:57:Melinda Disla RN) Follow Up Phone Number: [facility] - (04/12/2016 13:57:Melinda Disla RN)
--- NOTE | 2016-04-13 04:46 | L&D Discharge Summary ---
OB Discharge Summary Datetime Report Generated by CPN: 04/13/2016 04:45 DISCHARGE DIAGNOSIS Diagnosis/Symptoms: Other Diagnoses/Symptoms Other: No pre-eclampsia Reviewed and signed 24 hour urine care notes, pre-eclampsia care notes, kick counts. Provided materials for 24 hour urine and reviewed collection. Pt encouraged to schedule f/u as ordered. Pt encouraged to return for decreased FM, suspected SROM, regular contractions, bleeding like a period, worsening of headache. Pt and support verbalized understanding and denies needs. Treatment/Procedures Other: CONSTANTINO, PO hydration, reposition Gestation: 39.2 Number of Babies in Womb: 1 Parity: 1 DIET/ACTIVITY/RESTRICTIONS Diet: Regular Activity: Normal Activity TEACHING/INSTRUCTIONS/REFERRALS Instructions Given To: Patient, Support Instructions Understood: Patient Verbalized Understanding; Support Person Verbalized Understanding Referrals: None Educational Materials- Other: Kick Counts, Pre-Eclampsia, 24 Hour Urine DISCHARGE INFORMATION Discharged AMA: No Discharge Date/Time: 04/12/2016 13:57 Discharged To: Home Discharge Provider Name: Dr. Richmond Accompanied By: FOB Discharge Method: Ambulatory Condition: Stable FOLLOW UP INFORMATION Follow Up With: [facility] Follow Up On: Tomorrow Follow Up Phone Number: [facility] - Comments: pt states verbal understanding of discharge instructions, denies questions or concerns. pt states she has appt on Saturday at 1330 and will keep appt as scheduled. GENERAL INSTR-CALL PROVIDER IF: Contractions: Contractions or cramps become more frequent than 8 in one hour or 4 in 20 minutes; Regular painful contractions every 5 minutes or less for one hour. Time your contractions from the beginning of one to the beginning of the next Pressure: Pressure in your vagina or lower abdomen that may feel like the baby is pushing down Period Like Cramps: Period-like cramps or low dull backache that may come and go Cramps/Diarrhea: Abdominal cramps that may be accompanied by diarrhea Gush of Fluid/Blood: Gush of fluid or blood from your vagina (it is normal to have spotting after vaginal exam or intercourse) Vaginal Discharge: Change in the type or amount of vaginal discharge Decreased Movement: Your baby is not moving as much as usual- 4 movements in 1 hour after drinking and resting on side Temperature: Temperature greater than 100.0(F) orally
--- NOTE | 2016-04-13 13:26 | Non Stress Test Report ---
Non Stress Test Datetime Report Generated by N: 04/13/2016 13:26 Test Number: 4 Indication for Study: Ordered by Provider Monitor Explained: Monitor Explained; Test Explained; Patient Verbalized Understanding Time on Monitor: 04/12/2016 12:07 Time off Monitor: 04/12/2016 13:44 NST Interventions: PO Hydration; Reposition Patient Physician Notified NST: Dr. Richmond Movement : Present Contraction Frequency : Occasional FHR Baseline : 150 Accelerations : 15X15 Decelerations : None Variability : Moderate 6-25bpm NST Review: Meets Criteria for Reactive NST NST Review and Verified By : Nehal Strickland RN NST Results: Reactive
--- NOTE | 2016-04-13 13:27 | L&D Current Admission ---
Current Admit Datetime Report Generated by N: 04/13/2016 13:26 Chief Complaint: Headache; Visual Disturbances (04/12/2016 12:08:Melinda Disla RN)
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
--- NOTE | 2016-04-13 13:27 | L&D Flow Sheet ---
LD Flowsheet Datetime Report Generated by CPN: 04/13/2016 13:27 Datetime: 04/12/2016 13:57 Patient Care Comments: Pt ambulating off unit in stable condition with support (Melinda Vitrano, RN) Datetime: 04/12/2016 13:52 Instructional Method: Verbal; Written; Patient Instructed; Family/Support Person Instructed; Verbalized Understanding (Melinda Disla RN) Teaching Comments: Reviewed and signed 24 hour urine care notes, pre-eclampsia care notes, kick counts. Provided materials for 24 hour urine and reviewed collection. Pt encouraged to schedule f/u as ordered. Pt encouraged to return for decreased FM, suspected SROM, regular contractions, bleeding like a period, worsening of headache. Pt and support verbalized understanding and denies needs. (Melinda Vitrano, RN) Datetime: 04/12/2016 13:44 Monitor Mode: External (Melinda Vitrano, RN) Frequency (min): Occasional (Melinda Vitrano, RN) Quality: Mild (Melinda Vitrano, RN) Duration (sec): 50-60 (Melinda Vitrano, RN) Pattern: Normal: <= 5 Contractions in 10 Minutes (Melinda Vitrano, RN) Resting Tone (Palpate): Relaxed (Melinda Vitrano, RN) Monitor Mode: External US (Melinda Vitrano, RN) FHR Baseline Rate : 145 (Melinda Vitrano, RN) Variability: Moderate 6-25 bpm (Melinda Vitrano, RN) Accelerations: 15X15 (Melinda Vitrano, RN) Decelerations: None (Melinda Vitrano, RN) Datetime: 04/12/2016 13:43 NBP Sys/Clarisa/Mean (mmHg): 123 (QS system process) : 73 (QS system process) : 90 (QS system process) Pulse: 93 (QS system process) Respirations: 15 (Melinda Disla RN) Medication Comments: Tylenol 975 mg PO (Melinda Disla RN) Datetime: 04/12/2016 13:42 Instructional Method: Verbal; Patient Instructed; Family/Support Person Instructed; Verbalized Understanding (Melinda Disla RN) Plan of Care: Plan of Care Discussed (Melinda Disla RN) Teaching Comments: Reviewed provider orders and POC. Pt denies needs or questions, in agreement with POC at this time. (Melinda Disla RN) Datetime: 04/12/2016 13:40 Communication Comments: Dr. Richmond on unit, reviewed strip. Report given to include EGA 39.2, , pt to unit for pre-e eval per Ade, CNM, pt complaints, nursing assessment, VS, lab results, and pt history. Orders received to administer Tylenol 975 mg PO x1 now for headache, d/c pt home, no pre-elampsia, pt to collect 24 hour urine and f/u in office tomorrow, 04/13/16. (Melinda Vitrano, RN) Datetime: 04/12/2016 13:30 Monitor Mode: External; Palpation (Melinda Vitrano, RN) Frequency (min): Occasional (Melinda Vitrano, RN) Quality: Mild (Melinda Vitrano, RN) Duration (sec): 60-70 (Melinda Vitrano, RN) Pattern: Normal: <= 5 Contractions in 10 Minutes (Melinda Vitrano, RN) Resting Tone (Palpate): Relaxed (Melinda Vitrano, RN) Monitor Mode: External US (Melinda Vitrano, RN) FHR Baseline Rate : 150 (Melinda Vitrano, RN) Variability: Moderate 6-25 bpm (Melinda Vitrano, RN) Accelerations: 15X15 (Melinda Vitrano, RN) Decelerations: None (Melinda Vitrano, RN) Datetime: 04/12/2016 13:28 NBP Sys/Clarisa/Mean (mmHg): 121 (QS system process) : 74 (QS system process) : 93 (QS system process) Pulse: 92 (QS system process) Respirations: 15 (Melinda Vitrano, RN) Datetime: 04/12/2016 13:13 NBP Sys/Clarisa/Mean (mmHg): 110 (QS system process) : 53 (QS system process) : 77 (QS system process) Pulse: 81 (QS system process) Respirations: 15 (Melinda Vitrano, RN) Datetime: 04/12/2016 13:00 Monitor Mode: External (Melinda Vitrano, RN) Frequency (min): Occasional (Melinda Vitrano, RN) Quality: Mild (Melinda Vitrano, RN) Duration (sec): 50-70 (Melinda Vitrano, RN) Pattern: Normal: <= 5 Contractions in 10 Minutes (Melinda Vitrano, RN) Resting Tone (Palpate): Relaxed (Melinda Vitrano, RN) Monitor Mode: External US (Melinda Vitrano, RN) FHR Baseline Rate : 150 (Melinda Vitrano, RN) Variability: Moderate 6-25 bpm (Melinda Vitrano, RN) Accelerations: 15X15 (Melinda Vitrano, RN) Decelerations: None (Melinda Vitrano, RN) Datetime: 04/12/2016 12:59 NBP Sys/Clarisa/Mean (mmHg): 120 (QS system process) : 58 (QS system process) : 82 (QS system process) Pulse: 93 (QS system process) Respirations: 15 (Melinda Vitrano, RN) Datetime: 04/12/2016 12:44 NBP Sys/Clarisa/Mean (mmHg): 130 (QS system process) : 72 (QS system process) : 93 (QS system process) Pulse: 97 (QS system process) Respirations: 15 (Melinda Vitrano, RN) Datetime: 04/12/2016 12:39 Monitor Interventions for FHR: Ultrasound Adjusted (Melinda Vitrano, RN) Datetime: 04/12/2016 12:36 Comments: Broken tracing while pt sitting up for lab draw (Melinda Vitrano, RN) Patient Care Comments: Labs drawn (Melinda Vitrano, RN) Datetime: 04/12/2016 12:30 Monitor Mode: External; Palpation (Melinda Vitrano, RN) Frequency (min): Occasional (Melinda Vitrano, RN) Quality: Mild (Melinda Vitrano, RN) Duration (sec): 50-80 (Melinda Vitrano, RN) Duration Criteria: Less than Two 120 Second Contractions (Melinda Vitrano, RN) Pattern: Normal: <= 5 Contractions in 10 Minutes (Melinda Vitrano, RN) Resting Tone (Palpate): Relaxed (Melinda Vitrano, RN) Monitor Mode: External US (Melinda Vitrano, RN) FHR Baseline Rate : 150 (Melinda Vitrano, RN) Variability: Moderate 6-25 bpm (Melinda Vitrano, RN) Accelerations: 15X15 (Melinda Vitrano, RN) Decelerations: None (Melinda Vitrano, RN) Datetime: 04/12/2016 12:28 NBP Sys/Clarisa/Mean (mmHg): 120 (QS system process) : 61 (QS system process) : 86 (QS system process) Pulse: 97 (QS system process) Respirations: 15 (Melinda Vitrano, RN) Datetime: 04/12/2016 12:24 Monitor Interventions for UA: Nibbe Adjusted (Melinda Vitrano, RN) Monitor Interventions for FHR: Ultrasound Adjusted (Melinda Vitrano, RN) Patient Position/Activity: Right Lateral; Semi-Fowlers (Melinda Vitrano, RN) Datetime: 04/12/2016 12:23 I/O Interventions: Popsicle (Melinda Vitrano, RN) Datetime: 04/12/2016 12:13 NBP Sys/Clarisa/Mean (mmHg): 125 (QS system process) : 69 (QS system process) : 91 (QS system process) Pulse: 96 (QS system process) Respirations: 15 (Melinda Vitrano, RN) Datetime: 04/12/2016 12:10 Patient Position/Activity: Left Lateral (Melinda Vitrano, RN) Datetime: 04/12/2016 12:08 Frequency (min): Irregular, pt not timing (Melinda Vitrano, RN) Pain Scale: 3 (Melinda Vitrano, RN) Pain Presence: Constant (Melinda Vitrano, RN) Pain Type: Ache (Annotations: Pt reports headache is "pounding like a migraine.") (Melinda Vitrano, RN) Pain Location: Head (Melinda Vitrano, RN) Membrane Status: Intact (Melinda Vitrano, RN) Vaginal Bleeding: None (Melinda Vitrano, RN) Level of Consciousness: Fully Conscious (Melinda Vitrano, RN) DTR's/Clonus: DTRs 2+; No Clonus (Melinda Vitrano, RN) Headache: Frontal (Melinda Vitrano, RN) Breath Sounds, Left: Clear and Equal (Melinda Vitrano, RN) Breath Sounds, Right: Clear and Equal (Melinda Vitrano, RN) Nausea/Vomiting: Denies (Melinda Vitrano, RN) RUQ Epigastric Pain: Denies (Annotations: No RUQ pain, R flank pain- tender under R ribs to palpation) (Melinda Vitrano, RN) Datetime: 04/12/2016 12:07 Patient Position/Activity: Left Lateral; Semi-Fowlers (Melinda Disla RN) I/O Interventions: Clear Liquids Given (Melinda Disla, RN) Instructional Method: Verbal; Patient Instructed; Family/Support Person Instructed; Verbalized Understanding (Melinda Disla RN) Plan of Care: Plan of Care Discussed (Melinda Disla, RN) Unit Routine: [place] to Room; Call [place]; Bed; Unit Personnel; Monitoring; Safety/Fall Risk Prevention; Bathroom Privileges (Melinda Disla, APOLLO)
== END 2016-04-12 13:57 | disposition home or self-care (01) ==
LOC: LC 11:50
PROVIDERS: ATTEND Obstetrics & Gynecology
PROC: 4A1HXCZ Monitoring of Products of Conception, Cardiac Rate, External Approach (ICD-10-PCS; principal; 2016-04-12)
DX: Z34.93 Encounter for supervision of normal pregnancy, unspecified, third trimester (principal); Z36 Encounter for antenatal screening of mother; Z3A.39 39 weeks gestation of pregnancy
CPT/HCPCS: 59025; 36415; 83615; 84550; 85025; 80053; 81001; 80307; J3490

== ENCOUNTER 2016-04-12 21:12 | Inpatient (IN) | payer MEDICAID ==
[2016-04-12 21:45] LABS: APPEARANCE,URINE CLEAR; BILIRUBIN,URINE NEGATIVE (NEGATIVE); GLUCOSE, URINE NEGATIVE (NEGATIVE); KETONES,URINE NEGATIVE (NEGATIVE); LEUKOCYTE ESTERASE,URINE NEGATIVE (NEGATIVE); NITRITE,URINE NEGATIVE (NEGATIVE); PROTEIN,URINE 30 mg/dL (NEGATIVE); URINE SPECIFIC GRAVITY 1.021; UROBILINOGEN,URINE NEGATIVE mg/dL (<2.0)
[2016-04-12] MEDS ORDERED: BUTALB/ACETAMINOPHEN/CAFFEINE 1 TAB EACH ONE (21:51)
[2016-04-12] MEDS ORDERED: BUTALB/ACETAMINOPHEN/CAFFEINE 1 TAB EACH PO ONE (21:53)
[2016-04-12 22:00] LABS: URINE BARBITURATES SCREEN NEGATIVE; URINE METHADONE SCREEN NEGATIVE; URINE PHENCYCLIDINE SCREEN NEGATIVE
[2016-04-12] MEDS ORDERED: BUTALB/ACETAMINOPHEN/CAFFEINE 1 TAB EACH PO PRN (22:08)
[2016-04-13 00:20] LABS: ABSOLUTE BASOPHILS # (AUTO) 0.1 10^3/uL (0.0-0.2); ABSOLUTE EOSINOPHILS # (AUTO) 0.1 10^3/uL (0.0-0.6); ABSOLUTE LYMPHOCYTES (AUTO) 1.9 10^3/uL (0.5-4.7); ABSOLUTE MONOCYTES (AUTO) 0.6 10^3/uL (0.1-1.4); ABSOLUTE NEUT (AUTO) 6.1 10^3/uL (1.7-8.2); BASOPHILS % (AUTO) 0.6 % (0-2); EOSINOPHILS % (AUTO) 0.8 % (0-6); HEMOGLOBIN 10.2 g/dL (12.0-15.5); HGB HCT DIFFERENCE -0.4; LYMPHOCYTES % (AUTO) 21.5 % (13-45); MEAN CORPUSCULAR HEMOGLOBIN 27.6 pg (27.0-33.4); MEAN CORPUSCULAR HGB CONC 32.8 g/dL (32.0-36.0); MEAN CORPUSCULAR VOLUME 84 fl (80-97); MONOCYTES % (AUTO) 7.4 % (3-13); RED BLOOD COUNT 3.69 10^6/uL (3.72-5.28); RED CELL DISTRIBUTION WIDTH 14.8 % (11.5-14.0); SEGMENTED NEUTROPHILS % (AUTO) 69.7 % (42-78); WHITE BLOOD COUNT 8.8 10^3/uL (4.0-10.5)
[2016-04-13 00:33] LABS: ALANINE AMINOTRANSFERASE 32 U/L (9-52); ALBUMIN 2.9 g/dL (3.5-5.0); ALKALINE PHOSPHATASE 136 U/L (38-126); ANION GAP 10 (5-19); ASPARTATE AMINO TRANSFERASE 20 U/L (14-36); BILIRUBIN,TOTAL 0.2 mg/dL (0.2-1.3); BLOOD UREA NITROGEN 12 mg/dL (7-20); CALCIUM 8.7 mg/dL (8.4-10.2); CARBON DIOXIDE 20 mmol/L (22-30); CHLORIDE 105 mmol/L (98-107); CREATININE RESULT 0.72 mg/dL (0.52-1.25); GLUCOSE 72 mg/dL (75-110); LDH 422 U/L (313-618); POTASSIUM 4.3 mmol/L (3.6-5.0); SODIUM 135.3 mmol/L (137-145); TOTAL PROTEIN 5.3 g/dL (6.3-8.2); URIC ACID 5.9 mg/dL (2.5-6.2)
[2016-04-13] MEDS ORDERED: OXYTOCIN/NORMAL SALINE 20 UNIT/1,000 ML RTUINJ ONE ×2 (00:33→02:56)
[2016-04-13] MEDS ORDERED: PHENYLEPHRINE HCL INJ/PF 10 MG/1 ML SDV ONE (02:36)
[2016-04-13] MEDS ORDERED: EPHEDRINE SULFATE INJ 50 MG/1 ML AMPULE ONE (02:36)
[2016-04-13] MEDS ORDERED: FENTANYL CITRATE INJ/PF 100 MCG/2 ML AMPUL ONE (02:36)
[2016-04-13] MEDS ORDERED: FENTANYL/BUPIVACAINE/NS/PF 200 MCG/100 ML RTUINJ EPI ONE (02:37)
[2016-04-13] MEDS ORDERED: BUPIVACAINE HCL 0.25 % INJ/PF (2.5 MG/1 ML) 30 ML VIAL ONE (02:37)
[2016-04-13] MEDS: RINGERS SOLUTION,LACTATED 1,000 ML IV PRN ×2 (02:49→02:50)
[2016-04-13] MEDS ORDERED: MISOPROSTOL 0.2 MG TABLET ONE (02:56)
[2016-04-13] MEDS ORDERED: LIDOCAINE 1% INJ-PF (10 MG/ML) 30 ML SDV ONE (02:56)
--- NOTE | 2016-04-13 04:46 | L&D Flow Sheet ---
LD Flowsheet Datetime Report Generated by CPN: 04/13/2016 04:45 Datetime: 04/13/2016 04:41 NBP Sys/Clarisa/Mean (mmHg): 127 (QS system process) : 63 (QS system process) : 88 (QS system process) Pulse: 69 (QS system process) LaborFlag: Antepartum (QS system process) Datetime: 04/13/2016 04:36 NBP Sys/Clarisa/Mean (mmHg): 132 (QS system process) : 70 (QS system process) : 93 (QS system process) Pulse: 73 (QS system process) LaborFlag: Antepartum (QS system process) Datetime: 04/13/2016 04:32 NBP Sys/Clarisa/Mean (mmHg): 135 (QS system process) : 65 (QS system process) : 94 (QS system process) Pulse: 76 (QS system process) LaborFlag: Antepartum (QS system process) Datetime: 04/13/2016 04:30 Monitor Mode: External (Renetta Flavio, RN) Frequency (min): 3.5-4 (Renetta Flavio, RN) Quality: Moderate to Strong (Renetta Flavio, RN) Duration (sec): 80-100 (Renetta Flavio, RN) Resting Tone (Palpate): Relaxed (Renetta Flavio, RN) Monitor Mode: External US (Renetta Flavio, RN) FHR Baseline Rate : 150 (Renetta Flavio, RN) Variability: Minimal - Undetectable to <=5 bpm (Renetta Flavio, RN) Accelerations: None (Renetta Flavio, RN) Decelerations: Late; Variable (Renetta Flavio, RN) Datetime: 04/13/2016 04:28 NBP Sys/Clarisa/Mean (mmHg): 135 (QS system process) : 64 (QS system process) : 92 (QS system process) Pulse: 89 (QS system process) LaborFlag: Antepartum (QS system process) Datetime: 04/13/2016 04:26 Dilatation (cm): 9.5 (Cherelle Ledgerwood, RN) Station: 1 (Cherelle Andradegerwood, RN) Exam by: Dr Richmond (Cherelle Plascenciawood, RN) Datetime: 04/13/2016 04:25 Communication: Provider at Bedside (Cherelle Andradegerwood, RN) Communication Comments: Dr Richmond at bedside (Cherelle Ledgerwood, RN) Datetime: 04/13/2016 04:20 NBP Sys/Clarisa/Mean (mmHg): 138 (QS system process) : 67 (QS system process) : 96 (QS system process) Pulse: 73 (QS system process) LaborFlag: Antepartum (QS system process) Datetime: 04/13/2016 04:16 NBP Sys/Clarisa/Mean (mmHg): 110 (QS system process) : 90 (QS system process) : 96 (QS system process) Pulse: 72 (QS system process) LaborFlag: Antepartum (QS system process) Datetime: 04/13/2016 04:15 Monitor Mode: External (Renetta Flavio, RN) Frequency (min): 2-4 (Renetta Flavio, RN) Quality: Moderate to Strong (Renetta Flavio, RN) Duration (sec): 60-120 (Renetta Flavio, RN) Resting Tone (Palpate): Relaxed (Renetta Flavio, RN) Monitor Mode: External US (Renetta Flavio, RN) FHR Baseline Rate : 150 (Renetta Flavio, RN) Variability: Minimal - Undetectable to <=5 bpm (Renetta Flavio, RN) Accelerations: None (Renetta Flavio, RN) Decelerations: Late; Variable (Renetta Flavio, RN) Datetime: 04/13/2016 04:12 Patient Position/Activity: High Fowlers (Cherelle Ledgerwood, RN) Datetime: 04/13/2016 04:07 NBP Sys/Clarisa/Mean (mmHg): 128 (QS system process) : 73 (QS system process) : 91 (QS system process) Pulse: 67 (QS system process) LaborFlag: Antepartum (QS system process) Datetime: 04/13/2016 04:00 NBP Sys/Clarisa/Mean (mmHg): 134 (QS system process) : 65 (QS system process) : 93 (QS system process) Pulse: 57 (QS system process) Monitor Mode: External (Renetta Flavio, RN) Frequency (min): 1-6 (Renetta Flavio, RN) Quality: Moderate to Strong (Renetta Flavio, RN) Duration (sec): 70-130 (Renetta Flavio, RN) Resting Tone (Palpate): Relaxed (Renetta Flavio, RN) Monitor Mode: External US (Renetta Flavio, RN) FHR Baseline Rate : 150 (Renetta Flavio, RN) Variability: Minimal - Undetectable to <=5 bpm (Renetta Flavio, RN) Accelerations: None (Renetta Flavio, RN) Decelerations: Late; Variable (Renetta Flavio, RN) LaborFlag: Antepartum (QS system process) Datetime: 04/13/2016 03:55 NBP Sys/Clarisa/Mean (mmHg): 131 (QS system process) : 63 (QS system process) : 90 (QS system process) Pulse: 71 (QS system process) LaborFlag: Antepartum (QS system process) Datetime: 04/13/2016 03:54 Pitocin (milliunit): Pitocin Discontinued (Cherelle Ledgerwood, RN) Medication Comments: per Dr Richmond order (Cherelle Raymondgerwood, RN) Patient Care Comments: Oxygen mask on (Cherelle Plascenciawood, RN) Datetime: 04/13/2016 03:52 Patient Position/Activity: Left Extreme (Cherelle Ledgerwood, RN) Datetime: 04/13/2016 03:51 IV/Blood Work: IV Bolus Started (Cherelle Thaiswood, RN) Datetime: 04/13/2016 03:50 NBP Sys/Clarisa/Mean (mmHg): 132 (QS system process) : 64 (QS system process) : 91 (QS system process) Pulse: 72 (QS system process) Medication Comments: Ephedrine 5 mg given (Cherelle Raymondgerwood, RN) LaborFlag: Antepartum (QS system process) Datetime: 04/13/2016 03:45 Monitor Mode: External (Renetta Flavio, RN) Frequency (min): 2-3 (Renetta Flavio, RN) Quality: Moderate to Strong (Renetta Flavio, RN) Duration (sec): 60-130 (Renetta Flavio, RN) Resting Tone (Palpate): Relaxed (Renetta Flavio, RN) Monitor Mode: External US (Renetta Flavio, RN) FHR Baseline Rate : 150 (Renetta Flavio, RN) Variability: Minimal - Undetectable to <=5 bpm (Renetta Flavio, RN) Accelerations: None (Renetta Flavio, RN) Decelerations: Late (Renetta Flavio, RN) Datetime: 04/13/2016 03:41 NBP Sys/Clarisa/Mean (mmHg): 131 (QS system process) : 60 (QS system process) : 66 (QS system process) : 86 (QS system process) : 91 (QS system process) Pulse: 70 (QS system process) Pulse: 75 (QS system process) LaborFlag: Antepartum (QS system process) Datetime: 04/13/2016 03:40 Monitor Interventions for FHR: Ultrasound Adjusted (Cherelle Raymondgerwood, RN) Pitocin (milliunit): Pitocin Decreased to (milliunits) @ 2 (Cherelle Raymondgerwood, RN) Patient Position/Activity: Left Tilt (Cherelle Raymondgerwood, RN) Datetime: 04/13/2016 03:38 Monitor Interventions for FHR: Ultrasound Adjusted (Cherelle Raymondgerwood, RN) Patient Position/Activity: Right Tilt (Cherelle Raymondgerwood, RN) Datetime: 04/13/2016 03:35 NBP Sys/Clarisa/Mean (mmHg): 132 (QS system process) : 61 (QS system process) : 88 (QS system process) Pulse: 61 (QS system process) LaborFlag: Antepartum (QS system process) Datetime: 04/13/2016 03:29 NBP Sys/Clarisa/Mean (mmHg): 129 (QS system process) : 60 (QS system process) : 86 (QS system process) Pulse: 77 (QS system process) Dilatation (cm): 4.5 (Cherelle Mendoza RN) Effacement (%): 70 (Cherelle Mendoza RN) Station: -2 (Cherelle Mendoza RN) Exam by: Remi Mendoza RN (Cherelle Mendoza RN) LaborFlag: Antepartum (QS system process) Datetime: 04/13/2016 03:28 NBP Sys/Clarisa/Mean (mmHg): 125 (QS system process) : 58 (QS system process) : 83 (QS system process) Pulse: 78 (QS system process) I/O Interventions: Garcia Cath Inserted (Cherelle Mendoza RN) Patient Care Comments: 12 F by Aggie Jennings CNA (Cherelle Mendoza RN) LaborFlag: Antepartum (QS system process) Datetime: 04/13/2016 03:27 NBP Sys/Clarisa/Mean (mmHg): 127 (QS system process) : 57 (QS system process) : 82 (QS system process) Pulse: 75 (QS system process) LaborFlag: Antepartum (QS system process) Datetime: 04/13/2016 03:26 NBP Sys/Clarisa/Mean (mmHg): 132 (QS system process) : 70 (QS system process) : 91 (QS system process) Pulse: 83 (QS system process) LaborFlag: Antepartum (QS system process) Datetime: 04/13/2016 03:25 NBP Sys/Clarisa/Mean (mmHg): 130 (QS system process) : 60 (QS system process) : 86 (QS system process) Pulse: 85 (QS system process) LaborFlag: Antepartum (QS system process) Datetime: 04/13/2016 03:24 NBP Sys/Clarisa/Mean (mmHg): 128 (QS system process) : 69 (QS system process) : 91 (QS system process) Pulse: 71 (QS system process) LaborFlag: Antepartum (QS system process) Datetime: 04/13/2016 03:23 NBP Sys/Clarisa/Mean (mmHg): 129 (QS system process) : 66 (QS system process) : 90 (QS system process) Pulse: 83 (QS system process) LaborFlag: Antepartum (QS system process) Datetime: 04/13/2016 03:22 NBP Sys/Clarisa/Mean (mmHg): 128 (QS system process) : 62 (QS system process) : 89 (QS system process) Pulse: 81 (QS system process) LaborFlag: Antepartum (QS system process) Datetime: 04/13/2016 03:21 NBP Sys/Clarisa/Mean (mmHg): 129 (QS system process) : 65 (QS system process) : 90 (QS system process) Pulse: 78 (QS system process) LaborFlag: Antepartum (QS system process) Datetime: 04/13/2016 03:20 NBP Sys/Clarisa/Mean (mmHg): 129 (QS system process) : 69 (QS system process) : 92 (QS system process) Pulse: 78 (QS system process) LaborFlag: Antepartum (QS system process) Datetime: 04/13/2016 03:19 NBP Sys/Clarisa/Mean (mmHg): 131 (QS system process) : 74 (QS system process) : 95 (QS system process) Pulse: 76 (QS system process) LaborFlag: Antepartum (QS system process) Datetime: 04/13/2016 03:18 NBP Sys/Clarisa/Mean (mmHg): 138 (QS system process) : 73 (QS system process) : 100 (QS system process) Pulse: 89 (QS system process) LaborFlag: Antepartum (QS system process) Datetime: 04/13/2016 03:16 Pulse: 93 (QS system process) Pulse: 91 (QS system process) SpO2 (%): 96 (QS system process) SpO2 (%): 93 (QS system process) LaborFlag: Antepartum (QS system process) Datetime: 04/13/2016 03:15 NBP Sys/Clarisa/Mean (mmHg): 164 (QS system process) : 77 (QS system process) : 110 (QS system process) Pulse: 85 (QS system process) LaborFlag: Antepartum (QS system process) Datetime: 04/13/2016 03:14 NBP Sys/Clarisa/Mean (mmHg): 153 (QS system process) : 73 (QS system process) : 105 (QS system process) Pulse: 68 (QS system process) Epidural Procedure: Loading Dose (Cherelle Mendoza RN) LaborFlag: Antepartum (QS system process) Datetime: 04/13/2016 03:13 NBP Sys/Clarisa/Mean (mmHg): 156 (QS system process) : 81 (QS system process) : 107 (QS system process) Pulse: 78 (QS system process) LaborFlag: Antepartum (QS system process) Datetime: 04/13/2016 03:12 Epidural Procedure: Cath Placed (Cherelle Ledgerwood, RN) Datetime: 04/13/2016 03:11 Pulse: 62 (QS system process) SpO2 (%): 99 (QS system process) Epidural Procedure: Test Dose (Cherelle Ledgerwood, RN) LaborFlag: Antepartum (QS system process) Datetime: 04/13/2016 03:10 NBP Sys/Clarisa/Mean (mmHg): 144 (QS system process) : 104 (QS system process) : 114 (QS system process) Pulse: 96 (QS system process) Procedure Verify: Correct Patient Identity; Correct Side and Site are Marked; Agreement on Procedure to be Done; Correct Patient Position (Cherelle Mendoza RN) Anesthesia Plans: Epidural (Cherelle Mendoza RN) Epidural Positioning: Sitting (Cherelle Mendoza RN) LaborFlag: Antepartum (QS system process) Datetime: 04/13/2016 03:06 Pulse: 77 (QS system process) SpO2 (%): 99 (QS system process) LaborFlag: Antepartum (QS system process) Datetime: 04/13/2016 03:04 Communication: Provider at Bedside (Cherelle Raymondgerwood, RN) Communication Comments: Dr [place] at beadside (Cherelle Raymondgerwood, RN) Datetime: 04/13/2016 03:02 Pulse: 75 (QS system process) SpO2 (%): 93 (QS system process) LaborFlag: Antepartum (QS system process) Datetime: 04/13/2016 03:01 Pulse: 98 (QS system process) SpO2 (%): 99 (QS system process) LaborFlag: Antepartum (QS system process) Datetime: 04/13/2016 02:59 Monitor Mode: External; Palpation (Cherelle Ledgerwood, RN) Frequency (min): 2-3.5 (Cherelle Ledgerwood, RN) Quality: Moderate (Cherelle Ledgerwood, RN) Duration (sec): 60-80 (Cherelle Ledgerwood, RN) Duration Criteria: More than Two 120 Second or Greater Contractions (Cherelle Ledgerwood, RN) Pattern: Normal: <= 5 Contractions in 10 Minutes (Cherelle Ledgerwood, RN) Resting Tone (Palpate): Relaxed (Cherelle Ledgerwood, RN) Monitor Mode: External US (Cherelle Ledgerwood, RN) FHR Baseline Rate : 150 (Cherelle Ledgerwood, RN) FHR Baseline Changes: No Baseline Change (Cherelle Ledgerwood, RN) Variability: Moderate 6-25 bpm (Cherelle Ledgerwood, RN) Accelerations: None (Cherelle Ledgerwood, RN) Decelerations: None (Cherelle Ledgerwood, RN) Pitocin (milliunit): Pitocin Remains (milliunits) @ 4 (Cherelle Ledgerwood, RN) Datetime: 04/13/2016 02:55 Procedure Verify: Correct Patient Identity; Correct Side and Site are Marked; Agreement on Procedure to be Done; Correct Patient Position (Cherelle Ledgerwood, RN) Datetime: 04/13/2016 02:51 Procedure Verify: Correct Patient Identity; Correct Side and Site are Marked; Accurate Procedure Consent Form; Agreement on Procedure to be Done; Relevant Images and Results are Properly Labeled and Displayed; Addressed Need to Administer Antibiotics or Fluids for Irrigation; Safety Precautions Based on Patient History or Medication Use (Renetta Muniz RN) Anesthesia Plans: Epidural (Renetta Muniz RN) Epidural Positioning: Sitting (Renetta Muniz RN) Anesthesia Comments: Dr Marlow called for epidural placement (Renetta Muniz RN) Datetime: 04/13/2016 02:46 IV/Blood Work: New IV Bag Hung (Angie Navya, RN) Datetime: 04/13/2016 02:44 Monitor Mode: External; Palpation (Cherelle Ledgerwood, RN) Frequency (min): 2.5-4.5 (Cherelle Ledgerwood, RN) Quality: Moderate (Cherelle Ledgerwood, RN) Duration (sec): 80-110 (Cherelle Ledgerwood, RN) Duration Criteria: Less than Two 120 Second Contractions (Cherelle Ledgerwood, RN) Pattern: Normal: <= 5 Contractions in 10 Minutes (Cherelle Ledgerwood, RN) Resting Tone (Palpate): Relaxed (Cherelle Ledgerwood, RN) Monitor Mode: External US (Cherelle Ledgerwood, RN) FHR Baseline Rate : 150 (Cherelle Ledgerwood, RN) FHR Baseline Changes: No Baseline Change (Cherelle Ledgerwood, RN) Variability: Moderate 6-25 bpm (Cherelle Ledgerwood, RN) Accelerations: None (Cherelle Ledgerwood, RN) Decelerations: Late (Cherelle Ledgerwood, RN) Pitocin (milliunit): Pitocin Remains (milliunits) @ 4 (Cherelle Ledgerwood, RN) Datetime: 04/13/2016 02:40 NBP Sys/Clarisa/Mean (mmHg): 143 (QS system process) : 70 (QS system process) : 98 (QS system process) Pulse: 74 (QS system process) LaborFlag: Antepartum (QS system process) Datetime: 04/13/2016 02:29 Monitor Mode: External; Palpation (Cherelle Ledgerwood, RN) Frequency (min): 2-3 (Cherelle Ledgerwood, RN) Quality: Moderate (Cherelle Ledgerwood, RN) Duration (sec): 60-80 (Cherelle Ledgerwood, RN) Duration Criteria: Less than Two 120 Second Contractions (Cherelle Ledgerwood, RN) Pattern: Normal: <= 5 Contractions in 10 Minutes (Cherelle Ledgerwood, RN) Resting Tone (Palpate): Relaxed (Cherelle Ledgerwood, RN) Monitor Mode: External US (Cherelle Ledgerwood, RN) FHR Baseline Rate : 150 (Cherelle Ledgerwood, RN) FHR Baseline Changes: No Baseline Change (Cherelle Ledgerwood, RN) Variability: Moderate 6-25 bpm (Cherelle Ledgerwood, RN) Accelerations: None (Cherelle Ledgerwood, RN) Decelerations: Late (Cherelle Ledgerwood, RN) Pitocin (milliunit): Pitocin Remains (milliunits) @ 4 (Cherelle Ledgerwood, RN) Datetime: 04/13/2016 02:25 NBP Sys/Clarisa/Mean (mmHg): 145 (QS system process) : 84 (QS system process) : 108 (QS system process) Pulse: 59 (QS system process) LaborFlag: Antepartum (QS system process) Datetime: 04/13/2016 02:18 Procedure Verify: Correct Patient Identity; Correct Side and Site are Marked; Agreement on Procedure to be Done; Correct Patient Position (Cherelle Ledgerwood, RN) Datetime: 04/13/2016 02:16 Patient Care Comments: pt is requesting an Epidural (Cherelle Ledgerwood, RN) Datetime: 04/13/2016 02:15 Monitor Mode: External; Palpation (Cherelle Ledgerwood, RN) Frequency (min): 1.5-3.5 (Cherelle Ledgerwood, RN) Quality: Mild/Moderate (Cherelle Ledgerwood, RN) Duration (sec): 60-90 (Cherelle Ledgerwood, RN) Duration Criteria: Less than Two 120 Second Contractions (Cherelle Ledgerwood, RN) Pattern: Normal: <= 5 Contractions in 10 Minutes (Cherelle Ledgerwood, RN) Resting Tone (Palpate): Relaxed (Cherelle Ledgerwood, RN) Monitor Mode: External US (Cherelle Ledgerwood, RN) FHR Baseline Rate : 150 (Cherelle Ledgerwood, RN) FHR Baseline Changes: No Baseline Change (Cherelle Ledgerwood, RN) Variability: Moderate 6-25 bpm (Cherelle Ledgerwood, RN) Accelerations: None (Cherelle Ledgerwood, RN) Decelerations: None (Cherelle Ledgerwood, RN) Pitocin (milliunit): Pitocin Remains (milliunits) @ 4 (Cherelle Ledgerwood, RN) Datetime: 04/13/2016 02:10 NBP Sys/Clarisa/Mean (mmHg): 145 (QS system process) : 82 (QS system process) : 107 (QS system process) Pulse: 65 (QS system process) Respirations: 15 (Cherelle Ledgerwood, RN) LaborFlag: Antepartum (QS system process) Datetime: 04/13/2016 02:05 Pitocin (milliunit): Pitocin Decreased to (milliunits) @ 4 (Cherelle Mendoza, APOLLO) Datetime: 04/13/2016 02:03 Dilatation (cm): 4.0 (Cherelle Mendoza RN) Effacement (%): 70 (Cherelle Mendoza RN) Station: -2 (Cherelle Mendoza RN) Exam by: Dr Richmond (Cherelle Mendoza RN) Membrane Status: Ruptured (Cherelle Mendoza RN) Membranes Rupture Method: Artificial (Cherelle Mendoza RN) Amniotic Fluid Color: Clear (Cherelle Mendoza RN) Amniotic Fluid Amount: Moderate (Cherelle Mendoza RN) Amniotic Fluid Odor: Normal (Cherelle Mendzoa RN) Datetime: 04/13/2016 02:02 Communication: Provider at Bedside (Cherelle Mendoza, RN) Communication Comments: Dr Richmond at bedside (Cherellemichelle Mendoza, RN) Datetime: 04/13/2016 02:00 Monitor Mode: External; Palpation (Cherelle Ledgerwood, RN) Frequency (min): 1.5-4.5 (Cherelle Ledgerwood, RN) Quality: Mild/Moderate (Cherelle Ledgerwood, RN) Duration (sec): 60-80 (Cherelle Ledgerwood, RN) Duration Criteria: Less than Two 120 Second Contractions (Cherelle Ledgerwood, RN) Pattern: Normal: <= 5 Contractions in 10 Minutes (Cherelle Ledgerwood, RN) Resting Tone (Palpate): Relaxed (Cherelle Ledgerwood, RN) Monitor Mode: External US (Cherelle Ledgerwood, RN) FHR Baseline Rate : 150 (Cherelle Ledgerwood, RN) FHR Baseline Changes: No Baseline Change (Cherelle Ledgerwood, RN) Variability: Moderate 6-25 bpm (Cherelle Ledgerwood, RN) Accelerations: None (Cherelle Ledgerwood, RN) Decelerations: Late (Cherelle Ledgerwood, RN) Pitocin (milliunit): Pitocin Remains (milliunits) @ 6 (Cherelle Ledgerwood, RN) Datetime: 04/13/2016 01:55 NBP Sys/Clarisa/Mean (mmHg): 151 (QS system process) : 71 (QS system process) : 102 (QS system process) Pulse: 65 (QS system process) LaborFlag: Antepartum (QS system process) Datetime: 04/13/2016 01:46 NBP Sys/Clarisa/Mean (mmHg): 135 (QS system process) : 77 (QS system process) : 100 (QS system process) Pulse: 71 (QS system process) LaborFlag: Antepartum (QS system process) Datetime: 04/13/2016 01:45 Monitor Mode: External; Palpation (Cherelle Mendoza RN) Frequency (min): 1.5-3.5 (Cherelle Mendoza RN) Quality: Mild/Moderate (Cherelle Ledgerwood, RN) Duration (sec): 70-110 (Cherelle Ledgerwood, RN) Duration Criteria: Less than Two 120 Second Contractions (Cherelle Ledgerwood, RN) Pattern: Normal: <= 5 Contractions in 10 Minutes (Cherelle Ledgerwood, RN) Resting Tone (Palpate): Relaxed (Cherelle Ledgerwood, RN) Monitor Mode: External US (Cherelle Ledgerwood, RN) FHR Baseline Rate : 150 (Cherelle Ledgerwood, RN) FHR Baseline Changes: No Baseline Change (Cherelle Ledgerwood, RN) Variability: Moderate 6-25 bpm (Cherelle Ledgerwood, RN) Accelerations: None (Cherelle Ledgerwood, RN) Decelerations: None (Cherelle Ledgerwood, RN) Pitocin (milliunit): Pitocin Remains (milliunits) @ 6 (Cherelle Ledgerwood, RN) Datetime: 04/13/2016 01:30 Monitor Mode: External; Palpation (Cherelle Ledgerwood, RN) Frequency (min): 2-3.5 (Cherelle Ledgerwood, RN) Quality: Mild/Moderate (Cherelle Ledgerwood, RN) Duration (sec): 70-130 (Cherelle Ledgerwood, RN) Duration Criteria: Less than Two 120 Second Contractions (Cherelle Ledgerwood, RN) Pattern: Normal: <= 5 Contractions in 10 Minutes (Cherelle Ledgerwood, RN) Resting Tone (Palpate): Relaxed (Cherelle Ledgerwood, RN) Monitor Mode: External US (Cherelle Ledgerwood, RN) FHR Baseline Rate : 145 (Cherelle Ledgerwood, RN) FHR Baseline Changes: No Baseline Change (Cherelle Ledgerwood, RN) Variability: Moderate 6-25 bpm (Cherelle Ledgerwood, RN) Accelerations: 15X15 (Cherelle Ledgerwood, RN) Decelerations: None (Cherelle Ledgerwood, RN) Pitocin (milliunit): Pitocin Remains (milliunits) @ 6 (Cherelle Ledgerwood, RN) Datetime: 04/13/2016 01:25 NBP Sys/Clarisa/Mean (mmHg): 131 (QS system process) : 72 (QS system process) : 96 (QS system process) Pulse: 62 (QS system process) LaborFlag: Antepartum (QS system process) Datetime: 04/13/2016 01:20 Pitocin (milliunit): Pitocin Increased to (milliunits) @ 6 (Cherelle Ledgerwood, RN) Datetime: 04/13/2016 01:15 Monitor Mode: External; Palpation (Cherelle Ledgerwood, RN) Frequency (min): irreg (Cherelle Ledgerwood, RN) Quality: Mild/Moderate (Cherelle Ledgerwood, RN) Duration (sec): 60-100 (Cherelle Ledgerwood, RN) Duration Criteria: Less than Two 120 Second Contractions (Cherelle Ledgerwood, RN) Pattern: Normal: <= 5 Contractions in 10 Minutes (Cherelle Ledgerwood, RN) Resting Tone (Palpate): Relaxed (Cherelle Ledgerwood, RN) Monitor Mode: External US (Cherelle Ledgerwood, RN) FHR Baseline Rate : 150 (Cherelle Ledgerwood, RN) FHR Baseline Changes: No Baseline Change (Cherelle Ledgerwood, RN) Variability: Moderate 6-25 bpm (Cherelle Ledgerwood, RN) Accelerations: 15X15 (Cherelle Ledgerwood, RN) Decelerations: None (Cherelle Ledgerwood, RN) Pitocin (milliunit): Pitocin Remains (milliunits) @ 4 (Cherelle Ledgerwood, RN) Datetime: 04/13/2016 01:09 NBP Sys/Clarisa/Mean (mmHg): 133 (QS system process) : 77 (QS system process) : 100 (QS system process) Pulse: 69 (QS system process) LaborFlag: Antepartum (QS system process) Datetime: 04/13/2016 01:00 Monitor Mode: External; Palpation (Cherelle Ledgerwood, RN) Frequency (min): 4-5 (Cherelle Ledgerwood, RN) Quality: Mild/Moderate (Cherelle Ledgerwood, RN) Duration (sec): 80-100 (Cherelle Ledgerwood, RN) Duration Criteria: Less than Two 120 Second Contractions (Cherelle Ledgerwood, RN) Pattern: Normal: <= 5 Contractions in 10 Minutes (Cherelle Ledgerwood, RN) Resting Tone (Palpate): Relaxed (Cherelle Ledgerwood, RN) Monitor Mode: External US (Cherelle Ledgerwood, RN) FHR Baseline Rate : 145 (Cherelle Ledgerwood, RN) FHR Baseline Changes: No Baseline Change (Cherelle Ledgerwood, RN) Variability: Moderate 6-25 bpm (Cherelle Ledgerwood, RN) Accelerations: 15X15 (Cherelle Ledgerwood, RN) Decelerations: None (Cherelle Ledgerwood, RN) Pitocin (milliunit): Pitocin Increased to (milliunits) @ 4 (Cherelle Ledgerwood, RN) Datetime: 04/13/2016 00:54 NBP Sys/Clarisa/Mean (mmHg): 126 (QS system process) : 74 (QS system process) : 95 (QS system process) Pulse: 76 (QS system process) LaborFlag: Antepartum (QS system process) Datetime: 04/13/2016 00:45 Monitor Mode: External; Palpation (Cherelle Ledgerwood, RN) Frequency (min): irreg (Cherelle Ledgerwood, RN) Quality: Mild (Cherelle Ledgerwood, RN) Duration (sec): 70-90 (Cherelle Ledgerwood, RN) Duration Criteria: Less than Two 120 Second Contractions (Cherelle Ledgerwood, RN) Pattern: Normal: <= 5 Contractions in 10 Minutes (Cherelle Ledgerwood, RN) Resting Tone (Palpate): Relaxed (Cherelle Ledgerwood, RN) Monitor Mode: External US (Cherelle Ledgerwood, RN) FHR Baseline Rate : 155 (Cherelle Ledgerwood, RN) FHR Baseline Changes: No Baseline Change (Cherelle Ledgerwood, RN) Variability: Moderate 6-25 bpm (Cherelle Ledgerwood, RN) Accelerations: 15X15 (Cherelle Ledgerwood, RN) Decelerations: None (Cherelle Ledgerwood, RN) Pitocin (milliunit): Pitocin Remains (milliunits) @ 2 (Cherelle Ledgerwood, RN) Datetime: 04/13/2016 00:41 NBP Sys/Clarisa/Mean (mmHg): 122 (QS system process) : 65 (QS system process) : 86 (QS system process) Pulse: 75 (QS system process) LaborFlag: Antepartum (QS system process) Datetime: 04/13/2016 00:40 Pitocin (milliunit): Pitocin Started (milliunits) @ 2 (Cherelle Raymondgerwood, RN) Datetime: 04/13/2016 00:30 Monitor Mode: External; Palpation (Cherelle Ledgerwood, RN) Frequency (min): irreg (Cherelle Ledgerwood, RN) Quality: Mild (Cherelle Ledgerwood, RN) Duration (sec): 60-110 (Cherelle Ledgerwood, RN) Duration Criteria: Less than Two 120 Second Contractions (Cherelle Ledgerwood, RN) Pattern: Normal: <= 5 Contractions in 10 Minutes (Cherelle Ledgerwood, RN) Resting Tone (Palpate): Relaxed (Cherelle Ledgerwood, RN) Monitor Mode: External US (Cherelle Ledgerwood, RN) FHR Baseline Rate : 145 (Cherelle Ledgerwood, RN) FHR Baseline Changes: No Baseline Change (Cherelle Ledgerwood, RN) Variability: Moderate 6-25 bpm (Cherelle Ledgerwood, RN) Accelerations: 15X15 (Cherelle Ledgerwood, RN) Decelerations: None (Cherelle Ledgerwood, RN) Datetime: 04/13/2016 00:24 NBP Sys/Clarisa/Mean (mmHg): 133 (QS system process) : 73 (QS system process) : 96 (QS system process) Pulse: 81 (QS system process) LaborFlag: Antepartum (QS system process) Datetime: 04/13/2016 00:19 IV/Blood Work: IV Started; New IV Bag Hung (Cherelle Ledgerwood, RN) Patient Care Comments: 18 G right wrist (Cherelle Ledgerwood, RN) Datetime: 04/13/2016 00:10 NBP Sys/Clarisa/Mean (mmHg): 133 (QS system process) : 75 (QS system process) : 99 (QS system process) Pulse: 74 (QS system process) LaborFlag: Antepartum (QS system process) Datetime: 04/13/2016 00:08 Procedures: Labs Drawn (Cherelle Ledgerwood, RN) Datetime: 04/13/2016 00:00 Monitor Mode: External; Palpation (Cherelle Ledgerwood, RN) Frequency (min): irreg (Cherelle Ledgerwood, RN) Quality: Mild (Cherelle Ledgerwood, RN) Duration (sec): 120-130 (Cherelle Ledgerwood, RN) Pattern: Normal: <= 5 Contractions in 10 Minutes (Cherelle Ledgerwood, RN) Resting Tone (Palpate): Relaxed (Cherelle Ledgerwood, RN) Monitor Mode: External US (Cherelle Ledgerwood, RN) FHR Baseline Rate : 145 (Cherelle Ledgerwood, RN) FHR Baseline Changes: No Baseline Change (Cherelle Ledgerwood, RN) Variability: Moderate 6-25 bpm (Cherelle Ledgerwood, RN) Accelerations: 15X15 (Cherelle Ledgerwood, RN) Decelerations: None (Cherelle Ledgerwood, RN) Datetime: 04/12/2016 23:55 Communication: Provider Orders Received (Cherelle Ledgerwood, RN) Communication Comments: Orders received to admit pt., start pitocin at 2 mu/h and go up by 2 every 5 min. (Cherelle Ledgerwood, RN) Datetime: 04/12/2016 23:54 Dilatation (cm): 4.0 (Cherelle Mendoza, RN) Effacement (%): 70 (Cherelle Plascenciawood, RN) Station: -2 (Cherelle Mendoza, RN) Exam by: Dr Richmond (Cherelle Kelly, RN) Datetime: 04/12/2016 23:53 Communication: Provider at Bedside (Cherelle Mendoza, RN) Communication Comments: Dr Richmond at bedside (Cherelle Mendoza, RN) Datetime: 04/12/2016 23:40 NBP Sys/Clarisa/Mean (mmHg): 145 (QS system process) : 70 (QS system process) : 101 (QS system process) Pulse: 82 (QS system process) LaborFlag: Antepartum (QS system process) Datetime: 04/12/2016 23:30 Monitor Mode: External; Palpation (Cherelle Ledgerwood, RN) Frequency (min): x1 (Cherelle Ledgerwood, RN) Quality: Mild (Cherelle Ledgerwood, RN) Duration (sec): 120 (Cherelle Ledgerwood, RN) Duration Criteria: Less than Two 120 Second Contractions (Cherelle Ledgerwood, RN) Resting Tone (Palpate): Relaxed (Cherelle Ledgerwood, RN) Monitor Mode: External US (Cherelle Ledgerwood, RN) FHR Baseline Rate : 155 (Cherelle Ledgerwood, RN) FHR Baseline Changes: No Baseline Change (Cherelle Ledgerwood, RN) Variability: Moderate 6-25 bpm (Cherelle Ledgerwood, RN) Accelerations: 10X10 (Cherelle Ledgerwood, RN) Decelerations: None (Cherelle Ledgerwood, RN) Datetime: 04/12/2016 23:25 NBP Sys/Clarisa/Mean (mmHg): 137 (QS system process) : 64 (QS system process) : 92 (QS system process) Pulse: 80 (QS system process) Respirations: 14 (Cherelle Ledgerwood, RN) Temperature (F): 98.0 (Cherelle Ledgerwood, RN) Temperature (C): 36.7 (QS system process) Temperature Route: Oral (Cherelle Ledgerwood, RN) LaborFlag: Antepartum (QS system process) Datetime: 04/12/2016 23:20 Patient Position/Activity: Left Tilt (Cherelle Ledgerwood, RN) Datetime: 04/12/2016 23:10 Communication Comments: Report to O. Thaiswood, RN, care relinquished (Melinda Vitrano, RN) Datetime: 04/12/2016 23:00 Communication Comments: Report received from B Vitrano RN (Cherelle Mendoza RN) Datetime: 04/12/2016 22:49 Patient Care Comments: Pt ambulating in stable condition with FOB (Melinda Disla RN) Datetime: 04/12/2016 22:39 Pain Scale: 3 (Melinda Disla RN) Pain Presence: Constant (Melinda Disla RN) Pain Type: Ache (Melinda Disla RN) Pain Location: Head (Melinda Disla RN) Pain Assessment Comments: Pt states headache feels "much better" (Melinda Disla RN) Communication Comments: Dr. Richmond remains at bedside, reviewed strip. Pt and support verbalize understanding of POC and are in agreement with POC. Deny further questions at this time. Orders received from Dr. Richmond to d/c monitors and allow pt to ambulate for 30 min then resume monitoring. May d/c monitors for 30 min ambulation every 1.5-2 hours. (Melinda Disla RN) LaborFlag: Antepartum (QS system process) Datetime: 04/12/2016 22:38 NBP Sys/Clarisa/Mean (mmHg): 144 (QS system process) : 86 (QS system process) : 110 (QS system process) Pulse: 80 (QS system process) Respirations: 16 (Melinda Vitrano, RN) LaborFlag: Antepartum (QS system process) Datetime: 04/12/2016 22:33 Communication Comments: Dr. Richmond remains at bedside reviewing POC and answering pt questions, reviewing POC. (Melinda Vitrano, RN) Datetime: 04/12/2016 22:30 Monitor Mode: External (Melinda Vitrano, RN) Frequency (min): Occasional (Melinda Vitrano, RN) Quality: Mild (Melinda Vitrano, RN) Duration (sec): 60-70 (Melinda Vitrano, RN) Pattern: Normal: <= 5 Contractions in 10 Minutes (Melinda Vitrano, RN) Resting Tone (Palpate): Relaxed (Melinda Vitrano, RN) Monitor Mode: External US (Melinda Vitrano, RN) FHR Baseline Rate : 150 (Melinda Vitrano, RN) Variability: Moderate 6-25 bpm (Melinda Vitrano, RN) Accelerations: 15X15 (Melinda Vitrano, RN) Decelerations: None (Melinda Vitrano, RN) Datetime: 04/12/2016 22:24 Communication Comments: Dr. Richmond at bedside per pt request, reviewing POC and pt hx (Melinda Vitrano, RN) Datetime: 04/12/2016 22:23 NBP Sys/Clarisa/Mean (mmHg): 130 (QS system process) : 61 (QS system process) : 88 (QS system process) Pulse: 84 (QS system process) Respirations: 16 (Melinda Vitrano, RN) LaborFlag: Antepartum (QS system process) Datetime: 04/12/2016 22:21 Patient Care Comments: Provided materials for 24 hour urine, pt verbalized understanding on collection (Melinda Vitrano, RN) Datetime: 04/12/2016 22:20 Communication Comments: Consents reviewed and signed (Melinda Vitrano, RN) Datetime: 04/12/2016 22:17 Instructional Method: Verbal; Patient Instructed; Family/Support Person Instructed; Verbalized Understanding (Melinda Disla RN) Plan of Care: Plan of Care Discussed (Melinda Dsila RN) Teaching Comments: Reviewed POC and answered pt questions. Pt requesting to speak with Dr. Richmond. Dr. Richmond notified, provider will be to pt bedside shortly. (Melinda Disla RN) Datetime: 04/12/2016 22:15 Communication Comments: Orders from Dr. Richmond; may consider urine collection for lab first discarded specimen of 24 hour urine. Start time of 24 hour urine 2130. (Melinda Disla RN) Datetime: 04/12/2016 22:08 NBP Sys/Clarisa/Mean (mmHg): 147 (QS system process) : 74 (QS system process) : 104 (QS system process) Pulse: 86 (QS system process) Respirations: 16 (Melinda Disla RN) LaborFlag: Antepartum (QS system process) Datetime: 04/12/2016 22:00 Monitor Mode: External; Palpation (Melinda Vitrano, RN) Frequency (min): Occasional (Melinda Vitrano, RN) Quality: Mild (Melinda Vitrano, RN) Duration (sec): 50-90 (Melinda Vitrano, RN) Pattern: Normal: <= 5 Contractions in 10 Minutes (Melinda Vitrano, RN) Resting Tone (Palpate): Relaxed (Melinda Vitrano, RN) Monitor Mode: External US (Melinda Vitrano, RN) FHR Baseline Rate : 145 (Melinda Vitrano, RN) Variability: Moderate 6-25 bpm (Melinda Vitrano, RN) Accelerations: 15X15 (Melinda Vitrano, RN) Decelerations: None (Melinda Vitrano, RN) Communication Comments: Dr. Richmond on unit, reviewed strip and VS. Orders received to change pt status to observation. Orders to continue BPs q 15, continue monitoring, and start new 24 hour urine. Pt may have Fioricet PO q 6 PRN for headache pain. No IV required. (Melinda Vitrano, RN) Datetime: 04/12/2016 21:59 Monitor Interventions for FHR: Ultrasound Adjusted (Melinda Vitrano, RN) Datetime: 04/12/2016 21:57 Medication Comments: Fioricet 1 tab PO (Melinda Vitrano, RN) Datetime: 04/12/2016 21:53 NBP Sys/Clarisa/Mean (mmHg): 130 (QS system process) : 64 (QS system process) : 91 (QS system process) Pulse: 83 (QS system process) Respirations: 16 (Melinda Vitrano, RN) LaborFlag: Antepartum (QS system process) Datetime: 04/12/2016 21:51 Patient Position/Activity: Left Lateral; Semi-Fowlers (Melinda Vitrano, RN) Datetime: 04/12/2016 21:50 Comments: Broken tracing d/t pt movement (Melinda Vitrano, RN) Datetime: 04/12/2016 21:45 Communication Comments: Dr. Richmond on unit. Report given to include EGA 39.2, , pt complaints, pt history, nursing assessment, VS, toco tracing FHTs. Orders for serial BPs, NST, Fioricet 1 tab PO x1 now for headache. (Melinda Vitrano, RN) Datetime: 04/12/2016 21:41 Pain Scale: 4 (Melinda Vitrano, RN) Pain Presence: Constant (Melinda Vitrano, RN) Pain Type: Ache (Annotations: Throbbing) (Melinda Vitrano, RN) Pain Location: Head (Melinda Vitrano, RN) Membrane Status: Intact (Melinda Vitrano, RN) Vaginal Bleeding: None (Melinda Vitrano, RN) Level of Consciousness: Fully Conscious (Melinda Vitrano, RN) DTR's/Clonus: DTRs 2+; No Clonus (Melinda Vitrano, RN) Headache: Frontal (Melinda Vitrano, RN) Breath Sounds, Left: Clear and Equal (Melinda Vitrano, RN) Breath Sounds, Right: Clear and Equal (Melinda Vitrano, RN) Nausea/Vomiting: Denies (Melinda Vitrano, RN) RUQ Epigastric Pain: Denies (Annotations: No RUQ tenderness on palpation; tender to palpation R flank) (Melinda Vitrano, RN) LaborFlag: Antepartum (QS system process) Datetime: 04/12/2016 21:38 NBP Sys/Clarisa/Mean (mmHg): 131 (QS system process) : 79 (QS system process) : 100 (QS system process) Pulse: 99 (QS system process) Respirations: 16 (Melinda Vitrano, RN) LaborFlag: Antepartum (QS system process) Datetime: 04/12/2016 21:36 Instructional Method: Verbal; Patient Instructed; Family/Support Person Instructed; Verbalized Understanding (Melinda Disla RN) Plan of Care: Plan of Care Discussed (Melinda Disla RN) Unit Routine: Snyder to Room; Call Galvin; Bed; Unit Personnel; IV Pumps; Safety/Fall Risk Prevention; Bathroom Privileges (Melinda Disla RN) Datetime: 04/12/2016 21:30 Stage of : Antepartum (Cherelle Mendoza RN)
--- NOTE | 2016-04-13 04:46 | L&D Admission Assessment ---
LD ADM ASMT Datetime Report Generated by CPN: 04/13/2016 04:45 Assessment Type: Admission Assessment (04/12/2016 21:41:Melinda Disla RN) Assessment Type: Admission Assessment (04/12/2016 12:08:Melinda Disla RN) Weight (lb): 194 (04/12/2016 12:03:QS system process) Weight (kg): 88.2 (04/12/2016 12:03:QS system process) Total Wt Gain (lb): 59 (04/12/2016 12:03:QS system process) Wt Gain (kg): 26.6 (04/12/2016 12:03:QS system process) BMI: 32.3 (04/12/2016 12:03:QS system process) Pain Scale: 3 (04/12/2016 22:39:Melinda Disla RN) Pain Scale: 4 (04/12/2016 21:41:Melinda Disla RN) Pain Scale: 3 (04/12/2016 12:08:Melinda Disla RN) Pain Presence: Constant (04/12/2016 22:39:Melinda Disla RN) Pain Presence: Constant (04/12/2016 21:41:Melinda Disla RN) Pain Presence: Constant (04/12/2016 12:08:Melinda Disla RN) Pain Type: Ache (04/12/2016 22:39:Melinda Disla RN) Pain Type: Ache (Annotations: Throbbing) (04/12/2016 21:41:Melinda Disla RN) Pain Type: Ache (Annotations: Pt reports headache is "pounding like a migraine.") (04/12/2016 12:08:Melinda Disla RN) Pain Location: Head (04/12/2016 22:39:Melinda Disla RN) Pain Location: Head (04/12/2016 21:41:Melinda Disla RN) Pain Location: Head (04/12/2016 12:08:Melinda Disla RN) Pain Related to Contraction: No (04/12/2016 21:41:Melinda Disla RN) Pain Related to Contraction: No (04/12/2016 12:08:Melinda Disla RN) Pain Comments: Pt states headache feels "much better" (04/12/2016 22:39:Melinda Disla RN) Frequency (min): 3.5-4 (04/13/2016 04:30:Renetta Muniz RN) Frequency (min): 2-4 (04/13/2016 04:15:Renetta Muniz RN) Frequency (min): 1-6 (04/13/2016 04:00:Renetta Muniz RN) Frequency (min): 2-3 (04/13/2016 03:45:Renetta Muniz RN) Frequency (min): 2-3.5 (04/13/2016 02:59:Cherelle Menodza RN) Frequency (min): 2.5-4.5 (04/13/2016 02:44:Cherelle Mendoza RN) Frequency (min): 2-3 (04/13/2016 02:29:Cherelle Mendoza RN) Frequency (min): 1.5-3.5 (04/13/2016 02:15:Cherelle Mendoza RN) Frequency (min): 1.5-4.5 (04/13/2016 02:00:Cherelle Mendoza RN) Frequency (min): 1.5-3.5 (04/13/2016 01:45:Cherelle Mendoza RN) Frequency (min): 2-3.5 (04/13/2016 01:30:Cherelle Mendoza RN) Frequency (min): irreg (04/13/2016 01:15:Cherelle Ledgerwood, RN) Frequency (min): 4-5 (04/13/2016 01:00:Cherelle Ledgerwood, RN) Frequency (min): irreg (04/13/2016 00:45:Cherelle Ledgerwood, RN) Frequency (min): irreg (04/13/2016 00:30:Cherelle Ledgerwood, RN) Frequency (min): irreg (04/13/2016 00:00:Cherelle Ledgerwood, RN) Frequency (min): x1 (04/12/2016 23:30:Cherelle Ledgerwood, RN) Frequency (min): Occasional (04/12/2016 22:30:Melinda Vitrano, RN) Frequency (min): Occasional (04/12/2016 22:00:Melinda Vitrano, RN) Frequency (min): Occasional (04/12/2016 13:44:Melinda Vitrano, RN) Frequency (min): Occasional (04/12/2016 13:30:Melinda Vitrano, RN) Frequency (min): Occasional (04/12/2016 13:00:Melinda Vitrano, RN) Frequency (min): Occasional (04/12/2016 12:30:Melinda Vitrano, RN) Frequency (min): Irregular, pt not timing (04/12/2016 12:08:Melinda Vitrano, RN) Duration (sec): 80-100 (04/13/2016 04:30:Renetta Flavio, RN) Duration (sec): 60-120 (04/13/2016 04:15:Renetta Flavio, RN) Duration (sec): 70-130 (04/13/2016 04:00:Renetta Flavio, RN) Duration (sec): 60-130 (04/13/2016 03:45:Renetta Flavio, RN) Duration (sec): 60-80 (04/13/2016 02:59:Cherelle Ledgerwood, RN) Duration (sec): 80-110 (04/13/2016 02:44:Cherelle Ledgerwood, RN) Duration (sec): 60-80 (04/13/2016 02:29:Cherelle Ledgerwood, RN) Duration (sec): 60-90 (04/13/2016 02:15:Cherelle Ledgerwood, RN) Duration (sec): 60-80 (04/13/2016 02:00:Cherelle Ledgerwood, RN) Duration (sec): 70-110 (04/13/2016 01:45:Cherelle Ledgerwood, RN) Duration (sec): 70-130 (04/13/2016 01:30:Cherelle Ledgerwood, RN) Duration (sec): 60-100 (04/13/2016 01:15:Cherelle Ledgerwood, RN) Duration (sec): 80-100 (04/13/2016 01:00:Cherelle Ledgerwood, RN) Duration (sec): 70-90 (04/13/2016 00:45:Cherelle Ledgerwood, RN) Duration (sec): 60-110 (04/13/2016 00:30:Cherelle Ledgerwood, RN) Duration (sec): 120-130 (04/13/2016 00:00:Cherelle Ledgerwood, RN) Duration (sec): 120 (04/12/2016 23:30:Cherelle Ledgerwood, RN) Duration (sec): 60-70 (04/12/2016 22:30:Melinda Vitrano, RN) Duration (sec): 50-90 (04/12/2016 22:00:Melinda Vitrano, RN) Duration (sec): 50-60 (04/12/2016 13:44:Melinda Vitrano, RN) Duration (sec): 60-70 (04/12/2016 13:30:Melinda Vitrano, RN) Duration (sec): 50-70 (04/12/2016 13:00:Melinda Vitrano, RN) Duration (sec): 50-80 (04/12/2016 12:30:Melinda Vitrano, RN) Quality: Moderate to Strong (04/13/2016 04:30:Renetta Muniz RN) Quality: Moderate to Strong (04/13/2016 04:15:Renetta Muniz RN) Quality: Moderate to Strong (04/13/2016 04:00:Renetta Muniz RN) Quality: Moderate to Strong (04/13/2016 03:45:Renetta Muniz RN) Quality: Moderate (04/13/2016 02:59:Cherelle Ledgerwood, RN) Quality: Moderate (04/13/2016 02:44:Cherelle Ledgerwood, RN) Quality: Moderate (04/13/2016 02:29:Cherelle Ledgerwood, RN) Quality: Mild/Moderate (04/13/2016 02:15:Cherelle Ledgerwood, RN) Quality: Mild/Moderate (04/13/2016 02:00:Cherelle Ledgerwood, RN) Quality: Mild/Moderate (04/13/2016 01:45:Cherelle Ledgerwood, RN) Quality: Mild/Moderate (04/13/2016 01:30:Cherelle Ledgerwood, RN) Quality: Mild/Moderate (04/13/2016 01:15:Cherelle Ledgerwood, RN) Quality: Mild/Moderate (04/13/2016 01:00:Cherelle Ledgerwood, RN) Quality: Mild (04/13/2016 00:45:Cherelle Ledgerwood, RN) Quality: Mild (04/13/2016 00:30:Cherelle Ledgerwood, RN) Quality: Mild (04/13/2016 00:00:Cherelle Ledgerwood, RN) Quality: Mild (04/12/2016 23:30:Cherelle Ledgerwood, RN) Quality: Mild (04/12/2016 22:30:Melinda Vitrano, RN) Quality: Mild (04/12/2016 22:00:Melinda Vitrano, RN) Quality: Mild (04/12/2016 13:44:Melinda Vitrano, RN) Quality: Mild (04/12/2016 13:30:Melinda Vitrano, RN) Quality: Mild (04/12/2016 13:00:Melinda Vitrano, RN) Quality: Mild (04/12/2016 12:30:Melinda Vitrano, RN) Pattern: Normal: <= 5 Contractions in 10 Minutes (04/13/2016 02:59:Cherelle Ledgerwood, RN) Pattern: Normal: <= 5 Contractions in 10 Minutes (04/13/2016 02:44:Cherelle Ledgerwood, RN) Pattern: Normal: <= 5 Contractions in 10 Minutes (04/13/2016 02:29:Cherelle Ledgerwood, RN) Pattern: Normal: <= 5 Contractions in 10 Minutes (04/13/2016 02:15:Cherelle Ledgerwood, RN) Pattern: Normal: <= 5 Contractions in 10 Minutes (04/13/2016 02:00:Cherelle Ledgerwood, RN) Pattern: Normal: <= 5 Contractions in 10 Minutes (04/13/2016 01:45:Cherelle Ledgerwood, RN) Pattern: Normal: <= 5 Contractions in 10 Minutes (04/13/2016 01:30:Cherelle Raymondgerwood, RN) Pattern: Normal: <= 5 Contractions in 10 Minutes (04/13/2016 01:15:Cherelle Ledgerwood, RN) Pattern: Normal: <= 5 Contractions in 10 Minutes (04/13/2016 01:00:Cherelle Ledgerwood, RN) Pattern: Normal: <= 5 Contractions in 10 Minutes (04/13/2016 00:45:Cherelle Ledgerwood, RN) Pattern: Normal: <= 5 Contractions in 10 Minutes (04/13/2016 00:30:Cherelle Kelly, RN) Pattern: Normal: <= 5 Contractions in 10 Minutes (04/13/2016 00:00:Cherelle Ledgerwood, RN) Pattern: Normal: <= 5 Contractions in 10 Minutes (04/12/2016 22:30:Melinda Nighat, RN) Pattern: Normal: <= 5 Contractions in 10 Minutes (04/12/2016 22:00:Melinda Vitrano, RN) Pattern: Normal: <= 5 Contractions in 10 Minutes (04/12/2016 13:44:Melinda Cindyano, RN) Pattern: Normal: <= 5 Contractions in 10 Minutes (04/12/2016 13:30:Melinda Vitrano, RN) Pattern: Normal: <= 5 Contractions in 10 Minutes (04/12/2016 13:00:Melinda Vitrano, RN) Pattern: Normal: <= 5 Contractions in 10 Minutes (04/12/2016 12:30:Melinda Vitrano, RN) Resting Tone [place]: Relaxed (04/13/2016 04:30:Renetta Muniz RN) Resting Tone [place]: Relaxed (04/13/2016 04:15:Renetta Muniz RN) Resting Tone [place]: Relaxed (04/13/2016 04:00:Renetta Flavio, RN) Resting Tone [place]: Relaxed (04/13/2016 03:45:Renetta Muniz RN) Resting Tone [place]: Relaxed (04/13/2016 02:59:Cherelle Mendoza, RN) Resting Tone [place]: Relaxed (04/13/2016 02:44:Cherelle Mendoza, RN) Resting Tone [place]: Relaxed (04/13/2016 02:29:Cherelle Mendoza, RN) Resting Tone [place]: Relaxed (04/13/2016 02:15:Cherelle Mendoza, RN) Resting Tone [place]: Relaxed (04/13/2016 02:00:Cherelle Mendoza, RN) Resting Tone [place]: Relaxed (04/13/2016 01:45:Cherelle Mendoza, RN) Resting Tone [place]: Relaxed (04/13/2016 01:30:Cherelle Mendoza, RN) Resting Tone [place]: Relaxed (04/13/2016 01:15:Cherelle Mendoza, RN) Resting Tone [place]: Relaxed (04/13/2016 01:00:Cherelle Mendoza RN) Resting Tone [place]: Relaxed (04/13/2016 00:45:Cherelle Mendoza, RN) Resting Tone [place]: Relaxed (04/13/2016 00:30:Cherelle Mendoza RN) Resting Tone [place]: Relaxed (04/13/2016 00:00:Cherelle Mendoza, RN) Resting Tone [place]: Relaxed (04/12/2016 23:30:Cherelle Mendoza, RN) Resting Tone [place]: Relaxed (04/12/2016 22:30:Melinda Disla RN) Resting Tone [place]: Relaxed (04/12/2016 22:00:Melinda Disla RN) Resting Tone [place]: Relaxed (04/12/2016 13:44:Melinda Disla RN) Resting Tone [place]: Relaxed (04/12/2016 13:30:Melinda Disla RN) Resting Tone [place]: Relaxed (04/12/2016 13:00:Melinda Disla RN) Resting Tone [place]: Relaxed (04/12/2016 12:30:Melinda Disla RN) Dilatation (cm): 9.5 (04/13/2016 04:26:Cherelle Mendoza RN) Dilatation (cm): 4.5 (04/13/2016 03:29:Cherelle Mendoza RN) Dilatation (cm): 4.0 (04/13/2016 02:03:Cherelle Mendoza RN) Dilatation (cm): 4.0 (04/12/2016 23:54:Cherelle Mendoza RN) Effacement (%): 70 (04/13/2016 03:29:Cherelle Mendoza RN) Effacement (%): 70 (04/13/2016 02:03:Cherelle Mendoza RN) Effacement (%): 70 (04/12/2016 23:54:Cherelle Mendoza RN) Station: 1 (04/13/2016 04:26:Cherelle Mendoza RN) Station: -2 (04/13/2016 03:29:Cherelle Mendoza RN) Station: -2 (04/13/2016 02:03:Cherelle Mendoza RN) Station: -2 (04/12/2016 23:54:Cherelle Mendoza RN) Membranes Status: Ruptured (04/13/2016 02:03:Cherelle Mendoza RN) Membranes Status: Intact (04/12/2016 21:41:Melinda Disla RN) Membranes Status: Intact (04/12/2016 12:08:Melinda Disla RN) ROM Method: Artificial (04/13/2016 02:03:Cherelle Mendoza RN) Amniotic Fluid Color: Clear (04/13/2016 02:03:Cherelle Mendoza RN) Amniotic Fluid Amount: Moderate (04/13/2016 02:03:Cherelle Mendoza RN) Amniotic Fluid Odor: Normal (04/13/2016 02:03:Cherelle Mendoza RN) Level of Consciousness: Fully Conscious (04/12/2016 21:41:Melinda Disla RN) Level of Consciousness: Fully Conscious (04/12/2016 12:08:Melinda Disla RN) DTR's/Clonus: DTRs 2+; No Clonus (04/12/2016 21:41:Melinda Disla RN) DTR's/Clonus: DTRs 2+; No Clonus (04/12/2016 12:08:Melinda Disla RN) Headache: Frontal (04/12/2016 21:41:Melinda Disla RN) Headache: Frontal (04/12/2016 12:08:Melinda Disla RN) Dizziness: No (04/12/2016 21:41:Melinda Disla RN) Dizziness: No (04/12/2016 12:08:Melinda Disla RN) Blurred Vision: No (Annotations: Reports episodes of blurred vision throughout afternoon when headache worsens, no visual disturbances at present.) (04/12/2016 21:41:Melinda Disla RN) Blurred Vision: Yes (Annotations: R eye) (04/12/2016 12:08:Melinda Disla RN) Extremity Numbness/Tingling : Right Leg (Annotations: Reports some numbness in R leg) (04/12/2016 21:41:Melinda Disla RN) Extremity Numbness/Tingling : None (Annotations: No numbness/tingling, reports pain/heaviness in R lower extremity) (04/12/2016 12:08:Melinda Disla RN) Extremity Movement: Full Range of Motion (04/12/2016 21:41:Melinda Disla RN) Extremity Movement: Full Range of Motion (04/12/2016 12:08:Melinda Disla RN) Heart Rhythm: Regular (04/12/2016 21:41:Melinda Disla RN) Heart Rhythm: Regular (04/12/2016 12:08:Melinda Disla RN) Nailbeds: Sammy Martinez (04/12/2016 21:41:Melinda Disla RN) Nailbeds: Sammy Martinez (04/12/2016 12:08:Melinda Disla RN) Capillary Refill: Less than 3 Seconds (04/12/2016 21:41:Melinda Disla RN) Capillary Refill: Less than 3 Seconds (04/12/2016 12:08:Melinda Disla RN) Lower Extremities Edema: None (04/12/2016 21:41:Melinda Disla RN) Lower Extremities Edema: None (04/12/2016 12:08:Melinda Disla RN) Lower Extremities Edema Degree: None (04/12/2016 21:41:Melinda Disla RN) Lower Extremities Edema Degree: None (04/12/2016 12:08:Melinda Disla RN) Upper Extremities Edema: None (04/12/2016 21:41:Melinda Disla RN) Upper Extremities Edema: None (04/12/2016 12:08:Melinda Disla RN) Upper Extremities Edema Degree: None (04/12/2016 21:41:Melinda Disla RN) Upper Extremities Edema Degree: None (04/12/2016 12:08:Melinda Disla RN) Facial Edema: None (04/12/2016 21:41:Melinda Disla RN) Facial Edema: None (04/12/2016 12:08:Melinda Disla RN) Sarai's Sign Left Leg: Negative (04/12/2016 21:41:Melinda Disla RN) Sarai's Sign Left Leg: Negative (04/12/2016 12:08:Melinda Disla RN) Sarai's Sign Right Leg: Negative (04/12/2016 21:41:Melinda Disla RN) Sarai's Sign Right Leg: Negative (04/12/2016 12:08:Melinda Disla RN) DVT Risk Age: Age less than 41 years (04/12/2016 21:41:Melinda Disla RN) DVT Risk Age: Age less than 41 years (04/12/2016 12:08:Melinda Disla RN) DVT Risk BMI: BMI<31 (04/12/2016 21:41:Melinda Disla RN) DVT Risk BMI: BMI<31 (04/12/2016 12:08:Melinda Disla RN) DVT Risk Surgery: None Applicable (04/12/2016 21:41:Melinda Disla RN) DVT Risk Surgery: None Applicable (04/12/2016 12:08:Melinda Disla RN) DVT Risk Other: Women Only- or (<1 month) (04/12/2016 21:41:Melinda Disla RN) DVT Risk Other: Women Only- or (<1 month) (04/12/2016 12:08:Melinda Disla RN) DVT Risk Total: 1 (04/12/2016 21:41:QS system process) DVT Risk Total: 1 (04/12/2016 12:08:QS system process) DVT Risk Text: Low Risk (<10%) No specific measures, early ambulation (04/12/2016 21:41:QS system process) DVT Risk Text: Low Risk (<10%) No specific measures, early ambulation (04/12/2016 12:08:QS system process) Respiratory Effort: Unlabored; Regular Rhythm; Equal Expansion (04/12/2016 21:41:Melinda Disla RN) Respiratory Effort: Unlabored; Regular Rhythm; Equal Expansion (04/12/2016 12:08:Melinda Disla RN) Breath Sounds, Left: Clear and Equal (04/12/2016 21:41:Melinda Disla RN) Breath Sounds, Left: Clear and Equal (04/12/2016 12:08:Melinda Disla RN) Breath Sounds, Right: Clear and Equal (04/12/2016 21:41:Melinda Disla RN) Breath Sounds, Right: Clear and Equal (04/12/2016 12:08:Melinda Disla RN) Cough Productivity: None (04/12/2016 21:41:Melinda Disla RN) Cough Productivity: None (04/12/2016 12:08:Melinda Disla RN) Nausea/Vomiting: Denies (04/12/2016 21:41:Melinda Disla RN) Nausea/Vomiting: Denies (04/12/2016 12:08:Melinda Disla RN) Bowel Sounds: Normoactive (04/12/2016 21:41:Melinda Disla RN) Bowel Sounds: Normoactive (04/12/2016 12:08:Melinda Disla RN) RUQ Epigastric Pain: Denies (Annotations: No RUQ tenderness on palpation; tender to palpation R flank) (04/12/2016 21:41:Melinda Disla RN) RUQ Epigastric Pain: Denies (Annotations: No RUQ pain, R flank pain- tender under R ribs to palpation) (04/12/2016 12:08:Melinda Disla RN) Bowel Patterns: Soft, Formed Stool (04/12/2016 21:41:Melinda Disla RN) Bowel Patterns: Soft, Formed Stool (04/12/2016 12:08:Melinda Disla RN) Hemorrhoids: None (04/12/2016 21:41:Melinda Disla RN) Hemorrhoids: None (04/12/2016 12:08:Melinda Disla RN) Diet Type: Regular diet (04/12/2016 21:41:Melinda Disla RN) Diet Type: Regular diet (04/12/2016 12:08:Melinda Disla RN) Last Meal: 04/12/2016 19:00 (04/12/2016 21:41:Melinda Disla RN) Last Meal: 04/12/2016 08:00 (04/12/2016 12:08:Melinda Disla RN) Bladder: Nondistended (04/12/2016 21:41:Melinda Disla RN) Bladder: Nondistended (04/12/2016 12:08:Melinda Disla RN) Frequency of Urination: No (04/12/2016 21:41:Melinda Disla RN) Frequency of Urination: No (04/12/2016 12:08:Melinda Disla RN) Urination Burning: No (04/12/2016 21:41:Melinda Disla RN) Urination Burning: No (04/12/2016 12:08:Melinda Disla RN) CVA Tenderness: No (04/12/2016 21:41:Melinda Disla RN) CVA Tenderness: No (04/12/2016 12:08:Melinda Disla RN) Vaginal Bleeding: None (04/12/2016 21:41:Melinda Disla RN) Vaginal Bleeding: None (04/12/2016 12:08:Melinda Disla RN) Vaginal Discharge Amount: None (04/12/2016 21:41:Melinda Disla RN) Vaginal Discharge Amount: None (04/12/2016 12:08:Melinda Disla RN) Vaginal Discharge Color: N/A (04/12/2016 21:41:Melinda Disla RN) Vaginal Discharge Color: N/A (04/12/2016 12:08:Melinda Disla RN) Vaginal Discharge Character: None (04/12/2016 21:41:Melinda Disla RN) Vaginal Discharge Character: None (04/12/2016 12:08:Melinda Disla RN) Skin Color: Normal for Race (04/12/2016 21:41:Melinda Disla RN) Skin Color: Normal for Race (04/12/2016 12:08:Melinda Disla RN) Skin Temperature: Warm (04/12/2016 21:41:Melinda Disla RN) Skin Temperature: Warm (04/12/2016 12:08:Melinda Disla RN) Skin Moisture: Dry (04/12/2016 21:41:Melinda Disla RN) Skin Moisture: Dry (04/12/2016 12:08:Melinda Disla RN) Surgical Scars: N/A (04/12/2016 21:41:Melinda Disla RN) Surgical Scars: N/A (04/12/2016 12:08:Melinda Disla RN) Body Piercings/Tattoos: Bilateral ear piercings, tattoos (04/12/2016 21:41:Melinda Disla RN) Body Piercings/Tattoos: Mult tattoos, bilateral ear piercings (04/12/2016 12:08:Melinda Disla RN) Jac Scale Sensory Perception: No Impairment- Responds to verbal commands. Has no sensory deficit which would limit ability to feel or voice pain or discomfort (04/12/2016 21:41:Melinda Disla RN) Jac Scale Sensory Perception: No Impairment- Responds to verbal commands. Has no sensory deficit which would limit ability to feel or voice pain or discomfort (04/12/2016 12:08:Melinda Disla RN) Jac Scale Moisture: Rarely Moist- Skin is usually dry. Linen only requires changing at routine intervals (04/12/2016 21:41:Melinda Disla RN) Jac Scale Moisture: Rarely Moist- Skin is usually dry. Linen only requires changing at routine intervals (04/12/2016 12:08:Melinda Disla RN) Jac Scale Activity: Walks Frequently- Walks outside the room at least twice a day and inside room at least every 2 hours during the day. (04/12/2016 21:41:Melinda Disla RN) Jac Scale Activity: Walks Frequently- Walks outside the room at least twice a day and inside room at least every 2 hours during the day. (04/12/2016 12:08:Melinda Disla RN) Jac Scale Mobility: No Limitations- Makes major and frequent changes in position without assistance (04/12/2016 21:41:Melinda Disla RN) Jac Scale Mobility: No Limitations- Makes major and frequent changes in position without assistance (04/12/2016 12:08:Melinda Disla RN) Jac Scale Nutrition: Excellent- Eats most of every meal. Never refuses a meal. Usually eats a total of 4 or more servings of meat and dairy products. Occasionally eats between meals. Does not require supplementation (04/12/2016 21:41:Melinda Disla RN) Jac Scale Nutrition: Excellent- Eats most of every meal. Never refuses a meal. Usually eats a total of 4 or more servings of meat and dairy products. Occasionally eats between meals. Does not require supplementation (04/12/2016 12:08:Melinda Disla RN) Jac Scale Friction and Shear: No Apparent Problem- Moves in bed and in chair independently and has sufficient muscle strength to lift up completely during move. Maintains good position in bed or chair at all times (04/12/2016 21:41:Melinda Disla RN) Jac Scale Friction and Shear: No Apparent Problem- Moves in bed and in chair independently and has sufficient muscle strength to lift up completely during move. Maintains good position in bed or chair at all times (04/12/2016 12:08:Melinda Disla RN) Jac Scale Total: 23 (04/12/2016 21:41:QS system process) Jac Scale Total: 23 (04/12/2016 12:08:QS system process) Jac Scale Risk: No Risk of Pressure Ulcer Noted at this Time (04/12/2016 21:41:QS system process) Jac Scale Risk: No Risk of Pressure Ulcer Noted at this Time (04/12/2016 12:08:QS system process) Family Support: Family supportive (04/12/2016 21:41:Melinda Disla RN) Family Support: Family supportive (04/12/2016 12:08:Melinda Disla RN) Emotional State: Calm/Relaxed (04/12/2016 21:41:Melinda Disla RN) Emotional State: Calm/Relaxed (04/12/2016 12:08:Melinda Disla RN) Call [place]vin Within Reach: Yes (04/12/2016 21:41:Melinda Disla RN) Call [place]vin Within Reach: Yes (04/12/2016 12:08:Melinda Disla RN) Side Rails Up: Yes (04/12/2016 21:41:Melinda Disla RN) Side Rails Up: Yes (04/12/2016 12:08:Melinda Disla RN) Bed Wheels Locked: Yes (04/12/2016 21:41:Melinda Disla RN) Bed Wheels Locked: Yes (04/12/2016 12:08:Melinda Disla RN) Arm Bands Present: Yes (04/12/2016 21:41:Melinda Disla RN) Arm Bands Present: Yes (04/12/2016 12:08:Melinda Disla RN) Isolation: [place] (04/12/2016 21:41:Melinda Disla RN) Isolation: [place] (04/12/2016 12:08:Melinda Disla RN) Fall Risk History of Falling: (0) No (04/12/2016 21:41:Melinda Disla RN) Fall Risk History of Falling: (0) No (04/12/2016 12:08:Melinda Disla RN) Fall Risk Secondary Diagnosis: (0) No (04/12/2016 21:41:Melinda Disla RN) Fall Risk Secondary Diagnosis: (0) No (04/12/2016 12:08:Melinda Disla RN) Fall Risk Ambulatory Aid: (0) None/Bedrest/Wheelchair/Nurse Assist (04/12/2016 21:41:Melinda Disla RN) Fall Risk Ambulatory Aid: (0) None/Bedrest/Wheelchair/Nurse Assist (04/12/2016 12:08:Melinda Disla RN) Fall Risk IV Therapy: (0) No (04/12/2016 21:41:Melinda Disla RN) Fall Risk IV Therapy: (0) No (04/12/2016 12:08:Melinda Disla RN) Fall Risk Gait: (0) Normal/Bedrest/Immobile (04/12/2016 21:41:Melinda Disla RN) Fall Risk Gait: (0) Normal/Bedrest/Immobile (04/12/2016 12:08:Melinda Disla RN) Fall Risk Mental Status: (0) Oriented to Own Ability (04/12/2016 21:41:Melinda Disla RN) Fall Risk Mental Status: (0) Oriented to Own Ability (04/12/2016 12:08:Melinda Disla RN) Fall Risk Score: 0 (04/12/2016 21:41:QS system process) Fall Risk Score: 0 (04/12/2016 12:08:QS system process) Fall Risk Score Definition: No Risk: No action required (04/12/2016 21:41:QS system process) Fall Risk Score Definition: No Risk: No action required (04/12/2016 12:08:QS system process) Recent Exp Communicable Disease: No (04/12/2016 21:41:Melinda Disla RN) Recent Exp Communicable Disease: No (04/12/2016 12:08:Melinda Disla RN) Cough or Fever: No (04/12/2016 21:41:Melinda Disla RN) Cough or Fever: No (04/12/2016 12:08:Melinda Disla RN) Foreign Travel Past 10 Days: No (04/12/2016 21:41:Melinda Disla RN) Foreign Travel Past 10 Days: No (04/12/2016 12:08:Melinda Disla RN) Open Wounds or Sores: No (04/12/2016 21:41:Melinda Disla RN) Open Wounds or Sores: No (04/12/2016 12:08:Melinda Disla RN) Prior Antibiotic Resistance Tx: No (04/12/2016 21:41:Melinda Disla RN) Prior Antibiotic Resistance Tx: No (04/12/2016 12:08:Melinda Disla RN) Cultures Obtained: Not Applicable (04/12/2016 21:41:Melinda Disla RN) Cultures Obtained: Not Applicable (04/12/2016 12:08:Melinda Disla RN) Isolation Initiated: No (04/12/2016 21:41:Melinda Disla RN) Isolation Initiated: No (04/12/2016 12:08:Melinda Disla RN) Pt/Family Education: Not Applicable (04/12/2016 21:41:Melinda Disla RN) Pt/Family Education: Not Applicable (04/12/2016 12:08:Melinda Disla RN) FHR Baseline Rate (bpm) Baby A: 150 (04/13/2016 04:30:Renetta Muniz RN) FHR Baseline Rate (bpm) Baby A: 150 (04/13/2016 04:15:Renetta Muniz RN) FHR Baseline Rate (bpm) Baby A: 150 (04/13/2016 04:00:Renetta Muniz RN) FHR Baseline Rate (bpm) Baby A: 150 (04/13/2016 03:45:Renetta Muniz RN) FHR Baseline Rate (bpm) Baby A: 150 (04/13/2016 02:59:Cherelle Mendoza RN) FHR Baseline Rate (bpm) Baby A: 150 (04/13/2016 02:44:Cherelle Mendoza RN) FHR Baseline Rate (bpm) Baby A: 150 (04/13/2016 02:29:Cherelle Mendoza RN) FHR Baseline Rate (bpm) Baby A: 150 (04/13/2016 02:15:Cherelle Mendoza RN) FHR Baseline Rate (bpm) Baby A: 150 (04/13/2016 02:00:Cherelle Mendoza RN) FHR Baseline Rate (bpm) Baby A: 150 (04/13/2016 01:45:Cherelle Mendoza RN) FHR Baseline Rate (bpm) Baby A: 145 (04/13/2016 01:30:Cherelle Mendoza RN) FHR Baseline Rate (bpm) Baby A: 150 (04/13/2016 01:15:Cherelle Mendoza RN) FHR Baseline Rate (bpm) Baby A: 145 (04/13/2016 01:00:Cherelle Mendoza RN) FHR Baseline Rate (bpm) Baby A: 155 (04/13/2016 00:45:Cherelle Mendoza RN) FHR Baseline Rate (bpm) Baby A: 145 (04/13/2016 00:30:Cherelle Mendoza RN) FHR Baseline Rate (bpm) Baby A: 145 (04/13/2016 00:00:Cherelle Mendoza RN) FHR Baseline Rate (bpm) Baby A: 155 (04/12/2016 23:30:Cherelle Mendoza RN) FHR Baseline Rate (bpm) Baby A: 150 (04/12/2016 22:30:Melinda Disla RN) FHR Baseline Rate (bpm) Baby A: 145 (04/12/2016 22:00:Melinda Disla RN) FHR Baseline Rate (bpm) Baby A: 145 (04/12/2016 13:44:Melinda Disla RN) FHR Baseline Rate (bpm) Baby A: 150 (04/12/2016 13:30:Melinda Disla RN) FHR Baseline Rate (bpm) Baby A: 150 (04/12/2016 13:00:Melinda Disla RN) FHR Baseline Rate (bpm) Baby A: 150 (04/12/2016 12:30:Melinda Disla RN) Variability Baby A: Minimal - Undetectable to <=5 bpm (04/13/2016 04:30:Renetta Muniz RN) Variability Baby A: Minimal - Undetectable to <=5 bpm (04/13/2016 04:15:Renetta Muniz RN) Variability Baby A: Minimal - Undetectable to <=5 bpm (04/13/2016 04:00:Renetta Muniz RN) Variability Baby A: Minimal - Undetectable to <=5 bpm (04/13/2016 03:45:Renetta Muniz RN) Variability Baby A: Moderate 6-25 bpm (04/13/2016 02:59:Cherelle Mendoza RN) Variability Baby A: Moderate 6-25 bpm (04/13/2016 02:44:Cherelle Mendoza RN) Variability Baby A: Moderate 6-25 bpm (04/13/2016 02:29:Cherelle Mendoza RN) Variability Baby A: Moderate 6-25 bpm (04/13/2016 02:15:Cherelle Mendoza RN) Variability Baby A: Moderate 6-25 bpm (04/13/2016 02:00:Cherelle Mendoza RN) Variability Baby A: Moderate 6-25 bpm (04/13/2016 01:45:Cherelle Mendoza RN) Variability Baby A: Moderate 6-25 bpm (04/13/2016 01:30:Cherelle Mendoza RN) Variability Baby A: Moderate 6-25 bpm (04/13/2016 01:15:Cherelle Mendoza RN) Variability Baby A: Moderate 6-25 bpm (04/13/2016 01:00:Cherelle Mendoza RN) Variability Baby A: Moderate 6-25 bpm (04/13/2016 00:45:Cherelle Mendoza RN) Variability Baby A: Moderate 6-25 bpm (04/13/2016 00:30:Cherelle Mendoza RN) Variability Baby A: Moderate 6-25 bpm (04/13/2016 00:00:Cherelle Mendoza RN) Variability Baby A: Moderate 6-25 bpm (04/12/2016 23:30:Cherelle Mendoza RN) Variability Baby A: Moderate 6-25 bpm (04/12/2016 22:30:Melinda Disla RN) Variability Baby A: Moderate 6-25 bpm (04/12/2016 22:00:Melinda Disla RN) Variability Baby A: Moderate 6-25 bpm (04/12/2016 13:44:Melinda Disla RN) Variability Baby A: Moderate 6-25 bpm (04/12/2016 13:30:Melinda Disla RN) Variability Baby A: Moderate 6-25 bpm (04/12/2016 13:00:Melinda Disla RN) Variability Baby A: Moderate 6-25 bpm (04/12/2016 12:30:Melinda Disla RN) Accelerations Baby A: None (04/13/2016 04:30:Renetta Muniz RN) Accelerations Baby A: None (04/13/2016 04:15:Renetta Muniz RN) Accelerations Baby A: None (04/13/2016 04:00:Renetta Muniz RN) Accelerations Baby A: None (04/13/2016 03:45:Renetta Muniz RN) Accelerations Baby A: None (04/13/2016 02:59:Cherelle Mendoza RN) Accelerations Baby A: None (04/13/2016 02:44:Cherelle Mendoza RN) Accelerations Baby A: None (04/13/2016 02:29:Cherelle Mendoza RN) Accelerations Baby A: None (04/13/2016 02:15:Cherelle Mendoza RN) Accelerations Baby A: None (04/13/2016 02:00:Cherelle Mendoza RN) Accelerations Baby A: None (04/13/2016 01:45:Cherelle Mendoza RN) Accelerations Baby A: 15X15 (04/13/2016 01:30:Cherelle Mendoza RN) Accelerations Baby A: 15X15 (04/13/2016 01:15:Cherelle Mendoza RN) Accelerations Baby A: 15X15 (04/13/2016 01:00:Cherelle Mendoza RN) Accelerations Baby A: 15X15 (04/13/2016 00:45:Cherelle Mendoza RN) Accelerations Baby A: 15X15 (04/13/2016 00:30:Cherelle Mendoza RN) Accelerations Baby A: 15X15 (04/13/2016 00:00:Cherelle Mendoza RN) Accelerations Baby A: 10X10 (04/12/2016 23:30:Cherelle Mendoza RN) Accelerations Baby A: 15X15 (04/12/2016 22:30:Melinda Disla RN) Accelerations Baby A: 15X15 (04/12/2016 22:00:Melinda Disla RN) Accelerations Baby A: 15X15 (04/12/2016 13:44:Melinda Disla RN) Accelerations Baby A: 15X15 (04/12/2016 13:30:Melinda Disla RN) Accelerations Baby A: 15X15 (04/12/2016 13:00:Melinda Disla RN) Accelerations Baby A: 15X15 (04/12/2016 12:30:Melinda Disla RN) Decelerations Baby A: Late; Variable (04/13/2016 04:30:Renetta Muniz RN) Decelerations Baby A: Late; Variable (04/13/2016 04:15:Renetta Muniz RN) Decelerations Baby A: Late; Variable (04/13/2016 04:00:Reentta Muniz RN) Decelerations Baby A: Late (04/13/2016 03:45:Renetta Muniz RN) Decelerations Baby A: None (04/13/2016 02:59:Cherelle Mendoza RN) Decelerations Baby A: Late (04/13/2016 02:44:Cherelle Mendoza RN) Decelerations Baby A: Late (04/13/2016 02:29:Cherelle Mendoza RN) Decelerations Baby A: None (04/13/2016 02:15:Cherelle Mendoza RN) Decelerations Baby A: Late (04/13/2016 02:00:Cherelle Mendoza RN) Decelerations Baby A: None (04/13/2016 01:45:Cherelle Mendoza RN) Decelerations Baby A: None (04/13/2016 01:30:Cherelle Mendoza RN) Decelerations Baby A: None (04/13/2016 01:15:Cherelle Mendoza RN) Decelerations Baby A: None (04/13/2016 01:00:Cherelle Mendoza RN) Decelerations Baby A: None (04/13/2016 00:45:Cherelle Mendoza RN) Decelerations Baby A: None (04/13/2016 00:30:Cherelle Mendoza RN) Decelerations Baby A: None (04/13/2016 00:00:Cherelle Mendoza RN) Decelerations Baby A: None (04/12/2016 23:30:Cherelle Mendoza RN) Decelerations Baby A: None (04/12/2016 22:30:Melinda Disla RN) Decelerations Baby A: None (04/12/2016 22:00:Melinda Disla RN) Decelerations Baby A: None (04/12/2016 13:44:Melinda Disla RN) Decelerations Baby A: None (04/12/2016 13:30:Melinda Disla RN) Decelerations Baby A: None (04/12/2016 13:00:Melinda Disla RN) Decelerations Baby A: None (04/12/2016 12:30:Melinda Disla RN) Assessment Flag: Admission Assessment (04/12/2016 21:41:QS system process) Assessment Flag: Admission Assessment (04/12/2016 12:08:QS system process)
--- NOTE | 2016-04-13 04:46 | L&D General Admission ---
General Admit Datetime Report Generated by CPN: 04/13/2016 04:45 INFORMATION Para: 1 (04/09/2016 13:27:Patti Johnson, RN) Baby, Number in Womb: 1 (04/09/2016 13:27:Patti Johnson, RN) ALLERGIES Medication Allergies: No Known Allergies (04/12/2016) (04/12/2016 12:03:QS system process) Medication Allergies: No Known Allergies (04/09/2016) (04/09/2016 13:30:QS system process) DEMOGRAPHICS Home (04/12/2016 11:51:QS system process) LABS Hemoglobin: 10.2 L (04/13/2016 00:10:QS system process) Hemoglobin: 10.9 L (04/12/2016 12:24:QS system process) Hematocrit: 31.0 L (04/13/2016 00:10:QS system process) Hematocrit: 32.1 L (04/12/2016 12:24:QS system process) MCV: 84 (04/13/2016 00:10:QS system process) MCV: 85 (04/12/2016 12:24:QS system process)
--- NOTE | 2016-04-13 04:46 | L&D Current Admission ---
Current Admit Datetime Report Generated by CPN: 04/13/2016 04:45 ADMISSION INFORMATION Current Admit Date/Time: 04/13/2016 00:27 (04/13/2016 00:26:Cherelle Mendoza RN) Current Admit Date/Time: 04/12/2016 22:00 (04/12/2016 22:39:Melinda Disla RN) Reason for Admission: Induction of Labor (04/13/2016 00:26:Cherelle Mendoza RN) Reason for Admission: Observation (04/12/2016 22:39:Melinda Dilsa RN) Chief Complaint: Headache; Other (Annotations: Reports elevated home BP) (04/12/2016 21:41:Melinda Disla RN) Chief Complaint: Headache; Visual Disturbances (04/12/2016 12:08:Melinda Disla RN) Chief Complaint: Decreased Movement (04/09/2016 12:00:Patti Johnson RN) EGA per Dates: 39.3 (04/13/2016 00:26:QS system process) EGA per Dates: 39.2 (04/12/2016 22:39:QS system process) Method of Arrival: Wheelchair (04/13/2016 00:26:Cherelle Mendoza RN) Method of Arrival: Wheelchair (04/12/2016 22:39:Melinda Disla RN) Admitted From: Home (04/13/2016 00:26:Cherelle Mendoza RN) Admitted From: Home (04/12/2016 22:39:Melinda Disla RN) Reason for Induction: Gestational Hypertension (04/13/2016 00:26:Cherelle Mendoza RN) Reason for Induction: Not Applicable (04/12/2016 22:39:Melinda Disla RN) Records Available: Yes (04/13/2016 00:26:Cherelle Mendoza RN) Records Available: Yes (04/12/2016 22:39:Melinda Disla RN) General Admission Information: Reviewed (04/13/2016 00:26:Cherelle Mendoza RN) General Admission Information: Reviewed; Confirmed (04/12/2016 22:39:Melinda Disla RN) General Admission Reviewed By: Taiwo Disla RN (04/12/2016 22:39:Melinda Disla RN) BELONGINGS/ADVANCED DIRECTIVES Valuables/Personal Effects: None (04/13/2016 00:26:Cherelle Mendoza RN) Other Belongings: see belongigng consent (04/13/2016 00:26:Cherelle Mendoza RN) Other Belongings: See belongings consent (04/12/2016 22:39:Melinda Disla RN) Disposition of Belongings: Kept with Patient (04/13/2016 00:26:Cherelle Mendoza RN) Disposition of Belongings: Kept with Patient (04/12/2016 22:39:Melinda Disla RN) Advance Direct for Healthcare: No, and Wants No Information (04/13/2016 00:26:Cherelle Mendoza RN) Advance Direct for Healthcare: No, and Wants No Information (04/12/2016 22:39:Melinda Disla RN) Durable Power of Bathroom Tiling Professional: No (04/13/2016 00:26:Cherelle Mendoza RN) Durable Power of Bathroom Tiling Professional: No (04/12/2016 22:39:Melinda Disla RN) Living Will: No (04/13/2016 00:26:Cherelle Mendoza RN) Living Will: No (04/12/2016 22:39:Melinda Disla RN) Organ Donor: No (04/13/2016 00:26:Cherelle Mendoza RN) Organ Donor: No (04/12/2016 22:39:Melinda Disla RN) Pt Rights Information Given: Yes (04/13/2016 00:26:Cherelle Mendoza RN) Pt Rights Information Given: Yes (04/12/2016 22:39:Melinda Disla RN) Pt Understands Pt Rights: Yes (04/13/2016 00:26:Cherelle Mendoza RN) Pt Understands Pt Rights: Yes (04/12/2016 22:39:Melinda Disla RN) LEARNING ASSESSMENT Knowledge Level: Understands L_D Process; Understands Care Activities; Had Pre-Hospital Education; Understands Diagnosis (04/13/2016 00:26:Cherelle Mendoza RN) Knowledge Level: Understands L_D Process; Understands Care Activities; Had Pre-Hospital Education; Understands Diagnosis (04/12/2016 22:39:Melinda Disla RN) Barriers to Learning: None (04/13/2016 00:26:Cherelle Mendoza RN) Barriers to Learning: None (04/12/2016 22:39:Melinda Disla RN) Learning Readiness: Motivated (04/13/2016 00:26:Cherelle Mendoza RN) Learning Readiness: Motivated (04/12/2016 22:39:Melinda Disla RN) Learns Best By: 1 to 1 Instruction (04/13/2016 00:26:Cherelle Mendoza RN) Learns Best By: 1 to 1 Instruction (04/12/2016 22:39:Melinda Disla RN) Learning Needs: Labor and Delivery Process; Pain Management; Symptoms to Report; Medication; Diagnosis; Nutrition; Equipment; Infant Care; Community Resources (04/13/2016 00:26:Cherelle Mendoza RN) Learning Needs: Labor and Delivery Process; Pain Management; Symptoms to Report; Treatment Plan; Medication; Diagnosis (04/12/2016 22:39:Melinda Disla RN) DOMESTIC VIOLANCE SCREENING Dom Viol Threatened/Hurt: No (04/13/2016 00:26:Cherelle Mendoza RN) Hx of Abuse/Neglect past 2yrs: No (04/13/2016 00:26:Cherelle Mendoza RN) Feel Unsafe Going Home: No (04/13/2016 00:26:Cherelle Mendoza RN) Addt'l Observ Indicating Abuse: No (04/13/2016 00:26:Cherelle Mendoza RN) Reason Unable to Complete Screen: N/A, Screen Completed (04/13/2016 00:26:Cherelle Mendoza RN) Reason Unable to Complete Screen: No Opportunity to Talk Privately (04/12/2016 22:39:Melinda Dsila RN) Considered Personal Harm/Suicide: No (04/13/2016 00:26:Cherelle Mendoza RN) NUTRITIONAL/FUNCTIONAL SCREENING Problem with Appetite >5 Days: No (04/13/2016 00:26:Cherelle Mendoza RN) Problem with Appetite >5 Days: No (04/12/2016 22:39:Melinda Disla RN) Chew/Swallow Difficulties: No (04/13/2016 00:26:Cherelle Mendoza RN) Chew/Swallow Difficulties: No (04/12/2016 22:39:Melinda Disla RN) Inappropriate Wt Gain/Loss: No (04/13/2016 00:26:Cherelle Mendoza RN) Inappropriate Wt Gain/Loss: No (04/12/2016 22:39:Melinda Disla RN) Presence Skin Breakdown/Ulcer: No (04/13/2016 00:26:Cherelle Mendoza RN) Presence Skin Breakdown/Ulcer: No (04/12/2016 22:39:Melinda Disla RN) Special Diet: No (04/13/2016 00:26:Cherelle Mendoza RN) Special Diet: No (04/12/2016 22:39:Melinda Disla RN) Pt Requests Car Framer Visit: No (04/13/2016 00:26:Cherelle Mendoza RN) Pt Requests Car Framer Visit: No (04/12/2016 22:39:Melinda Disla RN) Hx of Any of the Following?: N/A (04/13/2016 00:26:Cherelle Mendoza RN) Hx of Any of the Following?: N/A (04/12/2016 22:39:Melinda Disla RN) New Diagnosis of: N/A (04/13/2016 00:26:Cherelle Mendoza RN) New Diagnosis of: N/A (04/12/2016 22:39:Melinda Disla RN) Requires Assist w/Ambulation: No (04/13/2016 00:26:Cherelle Mendoza RN) Requires Assist w/Ambulation: No (04/12/2016 22:39:Melinda Disla RN) Uses Assist Device to Ambulate: No (04/13/2016 00:26:Cherelle Mendoza RN) Uses Assist Device to Ambulate: No (04/12/2016 22:39:Melinda Disla RN) Pt Requires Help w/ADL's: No (04/13/2016 00:26:Cherelle Mendoza RN) Pt Requires Help w/ADL's: No (04/12/2016 22:39:Melinda Disla RN)
[2016-04-13] MEDS ORDERED: OXYTOCIN 10 UNIT/ML VIAL ONE (05:52)
[2016-04-13] MEDS ORDERED: DIBUCAINE 1% OINTMENT 28 GM TP PRN (06:08)
[2016-04-13] MEDS ORDERED: MEASLES,MUMPS&RUBELLA VACC/PF 0.5 ML VIAL SUBCUT PRN (06:08)
[2016-04-13] MEDS ORDERED: ACETAMINOPHEN WITH CODEINE #3 TABLET PO PRN ×2 (06:08)
[2016-04-13] MEDS ORDERED: OXYTOCIN/NORMAL SALINE 1,000 ML IV PRN ×2 (06:08)
[2016-04-13] MEDS ORDERED: DIPH/PERTUSS(ACELL)/TETANUS VAC/PF 0.5 ML SYR (>=10YO) IM PRN (06:08)
[2016-04-13] MEDS ORDERED: BENZOCAINE/MENTHOL AEROSOL SPRAY 56 ML TOP PRN (06:08)
[2016-04-13] MEDS ORDERED: ZOLPIDEM TARTRATE 5 MG TABLET PO PRN (06:08)
--- NOTE | 2016-04-13 06:22 | L&D Current Admission ---
Current Admit Datetime Report Generated by CPN: 04/13/2016 06:00 ADMISSION INFORMATION Current Admit Date/Time: 04/13/2016 00:27 (04/13/2016 00:26:Cherelle Mendoza RN) Reason for Admission: Induction of Labor (04/13/2016 00:26:Cherelle Mendoza RN) Chief Complaint: Headache; Other (Annotations: Reports elevated home BP) (04/12/2016 21:41:Melinda Disla RN) EGA per Dates: 39.3 (04/13/2016 00:26:QS system process) Method of Arrival: Wheelchair (04/13/2016 00:26:Cherelle Mendoza RN) Admitted From: Home (04/13/2016 00:26:Cherelle Mendoza RN) Reason for Induction: Gestational Hypertension (04/13/2016 00:26:Cherelle Mendoza RN) Records Available: Yes (04/13/2016 00:26:Cherelle Mendoza RN) General Admission Information: Reviewed (04/13/2016 00:26:Cherelle Mendoza RN) General Admission Reviewed By: Taiwo Disla RN (04/12/2016 22:39:Melinda Disla RN) BELONGINGS/ADVANCED DIRECTIVES Valuables/Personal Effects: None (04/13/2016 00:26:Cherelle Mendoza RN) Other Belongings: see belongigng consent (04/13/2016 00:26:Cherelle Mendoza RN) Disposition of Belongings: Kept with Patient (04/13/2016 00:26:Cherelle Mendoza RN) Advance Direct for Healthcare: No, and Wants No Information (04/13/2016 00:26:Cherelle Mendoza RN) Durable Power of Residential Support Specialist: No (04/13/2016 00:26:Cherelle Mendoza RN) Living Will: No (04/13/2016 00:26:Cherelle Mendoza RN) Organ Donor: No (04/13/2016 00:26:Cherelle Mendoza RN) Pt Rights Information Given: Yes (04/13/2016 00:26:Cherelle Mendoza RN) Pt Understands Pt Rights: Yes (04/13/2016 00:26:Cherelle Mendoza RN) LEARNING ASSESSMENT Knowledge Level: Understands L_D Process; Understands Care Activities; Had Pre-Hospital Education; Understands Diagnosis (04/13/2016 00:26:Cherelle Mendoza RN) Barriers to Learning: None (04/13/2016 00:26:Cherelle Mendoza RN) Learning Readiness: Motivated (04/13/2016 00:26:Cherelle Mendoza RN) Learns Best By: 1 to 1 Instruction (04/13/2016 00:26:Cherelle Mendoza RN) Learning Needs: Labor and Delivery Process; Pain Management; Symptoms to Report; Medication; Diagnosis; Nutrition; Equipment; Infant Care; Community Resources (04/13/2016 00:26:Cherelle Mendoza RN) DOMESTIC VIOLANCE SCREENING Dom Viol Threatened/Hurt: No (04/13/2016 00:26:Cherelle Mendoza RN) Hx of Abuse/Neglect past 2yrs: No (04/13/2016 00:26:Cherelle Mendoza RN) Feel Unsafe Going Home: No (04/13/2016 00:26:Cherelle Mendoza RN) Addt'l Observ Indicating Abuse: No (04/13/2016 00:26:Cherelle Mendoza RN) Reason Unable to Complete Screen: N/A, Screen Completed (04/13/2016 00:26:Cherelle Mendoza RN) Considered Personal Harm/Suicide: No (04/13/2016 00:26:Cherelle Mendoza RN) NUTRITIONAL/FUNCTIONAL SCREENING Problem with Appetite >5 Days: No (04/13/2016 00:26:Cherelle Mendoza RN) Chew/Swallow Difficulties: No (04/13/2016 00:26:Cherelle Mendoza RN) Inappropriate Wt Gain/Loss: No (04/13/2016 00:26:Cherelle Mendoza RN) Presence Skin Breakdown/Ulcer: No (04/13/2016 00:26:Cherelle Mendoza RN) Special Diet: No (04/13/2016 00:26:Cherelle Mendoza RN) Pt Requests Raw Hide Trimmer Visit: No (04/13/2016 00:26:Cherelle Mendoza RN) Hx of Any of the Following?: N/A (04/13/2016 00:26:Cherelle Mendoza RN) New Diagnosis of: N/A (04/13/2016 00:26:Cherelle Mendoza RN) Requires Assist w/Ambulation: No (04/13/2016 00:26:Cherelle Mendoza RN) Uses Assist Device to Ambulate: No (04/13/2016 00:26:Cherelle Mendoza RN) Pt Requires Help w/ADL's: No (04/13/2016 00:26:Cherelle Mendoza RN)
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
[2016-04-13] MEDS ORDERED: CEFAZOLIN 2 GM/D5W RTU 50 ML IV PRN (06:35)
[2016-04-13] MEDS ORDERED: CEFAZOLIN 2 GM/D5W RTU 2 GM/50 ML RTUPB IV ONE (06:45)
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
--- NOTE | 2016-04-13 08:01 | L&D Flow Sheet ---
LD Flowsheet Datetime Report Generated by CPN: 04/13/2016 08:00 Datetime: 04/13/2016 07:20 Respirations: 20 (Rojas Valentina, RN) Pain Presence: None/Denies (Rojas Valentina, RN) Datetime: 04/13/2016 07:13 NBP Sys/Clarisa/Mean (mmHg): 105 (QS system process) : 59 (QS system process) : 78 (QS system process) Pulse: 56 (QS system process) Datetime: 04/13/2016 06:43 NBP Sys/Clarisa/Mean (mmHg): 109 (QS system process) : 53 (QS system process) : 76 (QS system process) Pulse: 65 (QS system process) Datetime: 04/13/2016 06:08 NBP Sys/Clarisa/Mean (mmHg): 137 (QS system process) : 82 (QS system process) : 90 (QS system process) Pulse: 90 (QS system process) Datetime: 04/13/2016 05:53 NBP Sys/Clarisa/Mean (mmHg): 142 (QS system process) : 62 (QS system process) : 89 (QS system process) Pulse: 79 (QS system process) Respirations: 15 (Cherelle Mendoza, RN) Datetime: 04/13/2016 05:50 Stage of : Recovery (Cherelle Thaiswood, ) Temperature (F): 98.0 (Cherelle Thaiswood, ) Temperature (C): 36.7 (QS system process) Temperature Route: Oral (Cherelle Thaiswood, RN) Pain Scale: 0 (Cherelle Ledgerwood, RN) Pain Presence: None/Denies (Cherelle Ledgerwood, RN) Datetime: 04/13/2016 05:41 Stage 2 Comments: of male baby. (Cherelle Plascenciawood, ) Datetime: 04/13/2016 05:35 Patient Care Comments: Dr Richmond at bedside, room set up for delivery (Renetta Muniz RN) Pushing Progress: Descent with Pushing; Presenting Part Visible; Pushing Effectively with Contractions (Renetta Muniz RN) Communication: Provider at Bedside (Renetta Muniz RN) Datetime: 04/13/2016 05:30 Monitor Mode: External; Palpation (Cherelle Mendoza, RN) Frequency (min): 2-3 (Cherelle Mendoza, RN) Quality: Moderate to Strong (Cherelle Mendoza, RN) Duration (sec): 50-60 (Cherelle Mendoza, RN) Duration Criteria: Less than Two 120 Second Contractions (Cherelel Mendoza, RN) Pattern: Normal: <= 5 Contractions in 10 Minutes (Cherelle Mendoza, RN) Resting Tone (Palpate): Relaxed (Cherelle Mendoza, RN) Monitor Mode: External US (Cherelle Mendoza, RN) FHR Baseline Rate : 150 (Cherelle Mendoza, RN) FHR Baseline Changes: No Baseline Change (Cherelle Mendoza, RN) Variability: Moderate 6-25 bpm (Cherelle Mendoza, RN) Accelerations: 15X15 (Cherelle Mendoza, RN) Pushing Progress: Descent with Pushing; Pushing Effectively with Contractions (Renetta Flavio, RN) Datetime: 04/13/2016 05:25 Pushing Progress: Descent with Pushing; Pushing Effectively with Contractions (Renetta Flavio, RN) Datetime: 04/13/2016 05:22 NBP Sys/Clarisa/Mean (mmHg): 137 (QS system process) : 78 (QS system process) : 95 (QS system process) Pulse: 90 (QS system process) LaborFlag: Antepartum (QS system process) Datetime: 04/13/2016 05:17 NBP Sys/Clarisa/Mean (mmHg): 134 (QS system process) : 60 (QS system process) : 86 (QS system process) Pulse: 98 (QS system process) LaborFlag: Antepartum (QS system process) Datetime: 04/13/2016 05:15 Monitor Mode: External; Palpation (Cherelle Ledgerwood, RN) Frequency (min): 2 (Cherelle Ledgerwood, RN) Quality: Moderate to Strong (Cherelle Ledgerwood, RN) Duration (sec): 40-60 (Cherelle Ledgerwood, RN) Duration Criteria: Less than Two 120 Second Contractions (Cherelle Ledgerwood, RN) Pattern: Normal: <= 5 Contractions in 10 Minutes (Cherelle Ledgerwood, RN) Resting Tone (Palpate): Relaxed (Cherelle Ledgerwood, RN) Monitor Mode: External US (Cherelle Ledgerwood, RN) FHR Baseline Rate : 155 (Cherelle Ledgerwood, RN) FHR Baseline Changes: No Baseline Change (Cherelle Ledgerwood, RN) Variability: Moderate 6-25 bpm (Cherelle Ledgerwood, RN) Accelerations: 15X15 (Cherelle Ledgerwood, RN) Decelerations: None (Cherelle Ledgerwood, RN) Datetime: 04/13/2016 05:11 NBP Sys/Clarisa/Mean (mmHg): 123 (QS system process) : 58 (QS system process) : 83 (QS system process) Pulse: 77 (QS system process) LaborFlag: Antepartum (QS system process) Datetime: 04/13/2016 05:07 Pushing Position: Pushing with Contractions (Cherelle Mendoza, APOLLO) Pushing Progress: Caput Noted; Ineffective Pushing (Cherelle Andradegerwood, RN) Datetime: 04/13/2016 05:06 Pitocin (milliunit): Pitocin Started (milliunits) @ 2 (Renetta Muniz RN) Medication Comments: pitocin restarted per orders from DR Richmond (Renetta Muniz RN) Provider Reviewed Strip: Yes (Renetta Muniz RN) Datetime: 04/13/2016 05:02 NBP Sys/Clarisa/Mean (mmHg): 134 (QS system process) : 66 (QS system process) : 93 (QS system process) Pulse: 87 (QS system process) LaborFlag: Antepartum (QS system process) Datetime: 04/13/2016 05:00 Monitor Mode: External; Palpation (Cherelle Ledgerwood, RN) Frequency (min): 2-4 (Cherelle Ledgerwood, RN) Quality: Moderate to Strong (Cherelle Ledgerwood, RN) Duration (sec): 80-100 (Cherelle Ledgerwood, RN) Duration Criteria: Less than Two 120 Second Contractions (Cherelle Ledgerwood, RN) Pattern: Normal: <= 5 Contractions in 10 Minutes (Cherelle Ledgerwood, RN) Resting Tone (Palpate): Relaxed (Cherelle Ledgerwood, RN) Monitor Mode: External US (Cherelle Ledgerwood, RN) FHR Baseline Rate : 145 (Cherelle Ledgerwood, RN) FHR Baseline Changes: No Baseline Change (Cherelle Ledgerwood, RN) Variability: Moderate 6-25 bpm (Cherelle Ledgerwood, RN) Accelerations: 15X15 (Cherelle Ledgerwood, RN) Decelerations: Early (Cherelle Ledgerwood, RN) Datetime: 04/13/2016 04:58 Pushing Position: Pushing with Contractions; Pushing Lithotomy (Cherelle Ledgerwood, RN) Pushing Progress: Pushing Effectively with Contractions (Cherelle Ledgerwood, RN) Datetime: 04/13/2016 04:56 NBP Sys/Clarisa/Mean (mmHg): 122 (QS system process) : 90 (QS system process) : 101 (QS system process) Pulse: 73 (QS system process) LaborFlag: Antepartum (QS system process) Datetime: 04/13/2016 04:52 NBP Sys/Clarisa/Mean (mmHg): 142 (QS system process) : 65 (QS system process) : 93 (QS system process) Pulse: 96 (QS system process) LaborFlag: Antepartum (QS system process) Datetime: 04/13/2016 04:50 Pushing: Coached on Pushing (Cherelle Plascenciawood, RN) Datetime: 04/13/2016 04:48 Dilatation (cm): 10.0 (Cherelle Mendoza, RN) Effacement (%): 100 (Cherelle Mendoza, RN) Station: 1 (Cherelle Mendoza, RN) Exam by: O Kelly RN (Cherelle Mendoza, RN) Datetime: 04/13/2016 04:46 NBP Sys/Clarisa/Mean (mmHg): 128 (QS system process) : 71 (QS system process) : 94 (QS system process) Pulse: 76 (QS system process) LaborFlag: Antepartum (QS system process) Datetime: 04/13/2016 04:45 Monitor Mode: External; Palpation (Cherelle Ledgerwood, RN) Frequency (min): 1.5-3 (Cherelle Ledgerwood, RN) Quality: Moderate to Strong (Cherelle Ledgerwood, RN) Duration (sec): 60-110 (Cherelle Ledgerwood, RN) Duration Criteria: Less than Two 120 Second Contractions (Cherelle Ledgerwood, RN) Pattern: Normal: <= 5 Contractions in 10 Minutes (Cherelle Ledgerwood, RN) Resting Tone (Palpate): Relaxed (Cherelle Ledgerwood, RN) Monitor Mode: External US (Cherelle Ledgerwood, RN) FHR Baseline Rate : 150 (Cherelle Ledgerwood, RN) FHR Baseline Changes: No Baseline Change (Cherelle Ledgerwood, RN) Variability: Moderate 6-25 bpm (Cherelle Ledgerwood, RN) Accelerations: None (Cherelle Ledgerwood, RN) Decelerations: Late (Cherelle Ledgerwood, RN) Datetime: 04/13/2016 04:41 NBP Sys/Clarisa/Mean (mmHg): 127 (QS system process) : 63 (QS system process) : 88 (QS system process) Pulse: 69 (QS system process) LaborFlag: Antepartum (QS system process) Datetime: 04/13/2016 04:36 NBP Sys/Clarisa/Mean (mmHg): 132 (QS system process) : 70 (QS system process) : 93 (QS system process) Pulse: 73 (QS system process) LaborFlag: Antepartum (QS system process) Datetime: 04/13/2016 04:32 NBP Sys/Clarisa/Mean (mmHg): 135 (QS system process) : 65 (QS system process) : 94 (QS system process) Pulse: 76 (QS system process) LaborFlag: Antepartum (QS system process) Datetime: 04/13/2016 04:30 Monitor Mode: External (Renetta Flavio, RN) Frequency (min): 3.5-4 (Renetta Flavio, RN) Quality: Moderate to Strong (Renetta Flavio, RN) Duration (sec): 80-100 (Renetta Flavio, RN) Resting Tone (Palpate): Relaxed (Renetta Flavio, RN) Monitor Mode: External US (Renetta Flavio, RN) FHR Baseline Rate : 150 (Renetta Flavoi, RN) Variability: Minimal - Undetectable to <=5 bpm (Renetta Flavio, RN) Accelerations: None (Renetta Flavio, RN) Decelerations: Late; Variable (Renetta Flavio, RN) Datetime: 04/13/2016 04:28 NBP Sys/Clarisa/Mean (mmHg): 135 (QS system process) : 64 (QS system process) : 92 (QS system process) Pulse: 89 (QS system process) LaborFlag: Antepartum (QS system process) Datetime: 04/13/2016 04:26 Dilatation (cm): 9.5 (Cherelle Mendoza, APOLLO) Station: 1 (Cherelle Mendoza RN) Exam by: Dr Richmond (Cherelle Mendoza, APOLLO) Datetime: 04/13/2016 04:25 Communication: Provider at Bedside (Cherelle Mendoza RN) Communication Comments: Dr Richmond at bedside (Cherelle Mendoza RN) Datetime: 04/13/2016 04:20 NBP Sys/Clarisa/Mean (mmHg): 138 (QS system process) : 67 (QS system process) : 96 (QS system process) Pulse: 73 (QS system process) LaborFlag: Antepartum (QS system process) Datetime: 04/13/2016 04:16 NBP Sys/Clarisa/Mean (mmHg): 110 (QS system process) : 90 (QS system process) : 96 (QS system process) Pulse: 72 (QS system process) LaborFlag: Antepartum (QS system process) Datetime: 04/13/2016 04:15 Monitor Mode: External (Renetta Flavio, RN) Frequency (min): 2-4 (Renetta Flavio, RN) Quality: Moderate to Strong (Renetta Flavio, RN) Duration (sec): 60-120 (Renetta Flavio, RN) Resting Tone (Palpate): Relaxed (Renetta Flavio, RN) Monitor Mode: External US (Renetta Flavio, RN) FHR Baseline Rate : 150 (Renetta Flavio, RN) Variability: Minimal - Undetectable to <=5 bpm (Renetta Flavio, RN) Accelerations: None (Renetta Flavio, RN) Decelerations: Late; Variable (Renetta Flavio, RN) Datetime: 04/13/2016 04:12 Patient Position/Activity: High Fowlers (Cherelle Ledgerwood, RN) Datetime: 04/13/2016 04:07 NBP Sys/Clarisa/Mean (mmHg): 128 (QS system process) : 73 (QS system process) : 91 (QS system process) Pulse: 67 (QS system process) LaborFlag: Antepartum (QS system process) Datetime: 04/13/2016 04:00 NBP Sys/Clarisa/Mean (mmHg): 134 (QS system process) : 65 (QS system process) : 93 (QS system process) Pulse: 57 (QS system process) Monitor Mode: External (Renetta Flavio, RN) Frequency (min): 1-6 (Renetta Flavio, RN) Quality: Moderate to Strong (Renetta Flavio, RN) Duration (sec): 70-130 (Renetta Flavio, RN) Resting Tone (Palpate): Relaxed (Renetta Flavio, RN) Monitor Mode: External US (Renetta Flavio, RN) FHR Baseline Rate : 150 (Renetta Flavio, RN) Variability: Minimal - Undetectable to <=5 bpm (Renetta Flavio, RN) Accelerations: None (Renetta Flavio, RN) Decelerations: Late; Variable (Renetta Flavio, RN) LaborFlag: Antepartum (QS system process) Datetime: 04/13/2016 03:55 NBP Sys/Clarisa/Mean (mmHg): 131 (QS system process) : 63 (QS system process) : 90 (QS system process) Pulse: 71 (QS system process) LaborFlag: Antepartum (QS system process) Datetime: 04/13/2016 03:54 Pitocin (milliunit): Pitocin Discontinued (Cherelle Ledgerwood, RN) Medication Comments: per Dr Richmond order (Cherelle Ledgerwood, RN) Patient Care Comments: Oxygen mask on (Cherelle Ledgerwood, RN) Datetime: 04/13/2016 03:52 Patient Position/Activity: Left Extreme (Cherelle Ledgerwood, RN) Datetime: 04/13/2016 03:51 IV/Blood Work: IV Bolus Started (Cherelle Ledgerwood, RN) Datetime: 04/13/2016 03:50 NBP Sys/Clarisa/Mean (mmHg): 132 (QS system process) : 64 (QS system process) : 91 (QS system process) Pulse: 72 (QS system process) Medication Comments: Ephedrine 5 mg given (Cherelle Ledgerwood, RN) LaborFlag: Antepartum (QS system process) Datetime: 04/13/2016 03:45 Monitor Mode: External (Renetta Flavio, RN) Frequency (min): 2-3 (Renetta Flavio, RN) Quality: Moderate to Strong (Renetta Flvaio, RN) Duration (sec): 60-130 (Renetta Flavio, RN) Resting Tone (Palpate): Relaxed (Renetta Flavio, RN) Monitor Mode: External US (Renetta Flavio, RN) FHR Baseline Rate : 150 (Renetta Flavio, RN) Variability: Minimal - Undetectable to <=5 bpm (Renetta Flavio, RN) Accelerations: None (Renetta Flavio, RN) Decelerations: Late (Renetta Flavio, RN) Datetime: 04/13/2016 03:41 NBP Sys/Clarisa/Mean (mmHg): 131 (QS system process) : 60 (QS system process) : 66 (QS system process) : 86 (QS system process) : 91 (QS system process) Pulse: 70 (QS system process) Pulse: 75 (QS system process) LaborFlag: Antepartum (QS system process) Datetime: 04/13/2016 03:40 Monitor Interventions for FHR: Ultrasound Adjusted (Cherelle Mendoza RN) Pitocin (milliunit): Pitocin Decreased to (milliunits) @ 2 (Cherelle Mendoza RN) Patient Position/Activity: Left Tilt (Cherelle Mendoza, RN) Datetime: 04/13/2016 03:38 Monitor Interventions for FHR: Ultrasound Adjusted (Cherelle Ledgerwood, RN) Patient Position/Activity: Right Tilt (Cherelle Ledgerwood, RN) Datetime: 04/13/2016 03:35 NBP Sys/Clarisa/Mean (mmHg): 132 (QS system process) : 61 (QS system process) : 88 (QS system process) Pulse: 61 (QS system process) LaborFlag: Antepartum (QS system process) Datetime: 04/13/2016 03:30 Monitor Mode: External (Renetta Flavio, RN) Frequency (min): 2-4 (Renetta Flavio, RN) Quality: Moderate to Strong (Renetta Flavio, RN) Duration (sec): 50-100 (Renetta Flavio, RN) Resting Tone (Palpate): Relaxed (Renetta Flavio, RN) Monitor Mode: External US (Renetta Flavio, RN) FHR Baseline Rate : 150 (Renetta Flavio, RN) Variability: Moderate 6-25 bpm (Renetta Flavio, RN) Accelerations: None (Renetta Flavio, RN) Decelerations: Late; Variable (Renetta Flavio, RN) Datetime: 04/13/2016 03:29 NBP Sys/Clarisa/Mean (mmHg): 129 (QS system process) : 60 (QS system process) : 86 (QS system process) Pulse: 77 (QS system process) Dilatation (cm): 4.5 (Cherelle Mendoza RN) Effacement (%): 70 (Cherelle Mendoza RN) Station: -2 (Cherelle Mendoza, APOLLO) Exam by: Remi Mendoza RN (Cherelle Mendoza RN) LaborFlag: Antepartum (QS system process) Datetime: 04/13/2016 03:28 NBP Sys/Clarisa/Mean (mmHg): 125 (QS system process) : 58 (QS system process) : 83 (QS system process) Pulse: 78 (QS system process) I/O Interventions: Garcia Cath Inserted (Cherelle Mendoza RN) Patient Care Comments: 14 F by A Michaela FERNANDO (Cherelle Mendoza RN) LaborFlag: Antepartum (QS system process) Datetime: 04/13/2016 03:27 NBP Sys/Clarisa/Mean (mmHg): 127 (QS system process) : 57 (QS system process) : 82 (QS system process) Pulse: 75 (QS system process) LaborFlag: Antepartum (QS system process) Datetime: 04/13/2016 03:26 NBP Sys/Clarisa/Mean (mmHg): 132 (QS system process) : 70 (QS system process) : 91 (QS system process) Pulse: 83 (QS system process) LaborFlag: Antepartum (QS system process) Datetime: 04/13/2016 03:25 NBP Sys/Clarisa/Mean (mmHg): 130 (QS system process) : 60 (QS system process) : 86 (QS system process) Pulse: 85 (QS system process) LaborFlag: Antepartum (QS system process) Datetime: 04/13/2016 03:24 NBP Sys/Clarisa/Mean (mmHg): 128 (QS system process) : 69 (QS system process) : 91 (QS system process) Pulse: 71 (QS system process) LaborFlag: Antepartum (QS system process) Datetime: 04/13/2016 03:23 NBP Sys/Clarisa/Mean (mmHg): 129 (QS system process) : 66 (QS system process) : 90 (QS system process) Pulse: 83 (QS system process) LaborFlag: Antepartum (QS system process) Datetime: 04/13/2016 03:22 NBP Sys/Clarisa/Mean (mmHg): 128 (QS system process) : 62 (QS system process) : 89 (QS system process) Pulse: 81 (QS system process) LaborFlag: Antepartum (QS system process) Datetime: 04/13/2016 03:21 NBP Sys/Clarisa/Mean (mmHg): 129 (QS system process) : 65 (QS system process) : 90 (QS system process) Pulse: 78 (QS system process) LaborFlag: Antepartum (QS system process) Datetime: 04/13/2016 03:20 NBP Sys/Clarisa/Mean (mmHg): 129 (QS system process) : 69 (QS system process) : 92 (QS system process) Pulse: 78 (QS system process) LaborFlag: Antepartum (QS system process) Datetime: 04/13/2016 03:19 NBP Sys/Clarisa/Mean (mmHg): 131 (QS system process) : 74 (QS system process) : 95 (QS system process) Pulse: 76 (QS system process) LaborFlag: Antepartum (QS system process) Datetime: 04/13/2016 03:18 NBP Sys/Clarisa/Mean (mmHg): 138 (QS system process) : 73 (QS system process) : 100 (QS system process) Pulse: 89 (QS system process) LaborFlag: Antepartum (QS system process) Datetime: 04/13/2016 03:16 Pulse: 93 (QS system process) Pulse: 91 (QS system process) SpO2 (%): 96 (QS system process) SpO2 (%): 93 (QS system process) LaborFlag: Antepartum (QS system process) Datetime: 04/13/2016 03:15 NBP Sys/Clarisa/Mean (mmHg): 164 (QS system process) : 77 (QS system process) : 110 (QS system process) Pulse: 85 (QS system process) Monitor Mode: External (Renetta Muniz RN) Frequency (min): 1-3 (Renetta Muniz, RN) Quality: Moderate to Strong (Renettarobe Muniz, RN) Duration (sec): 60-90 (Renettarobe Muniz, RN) Resting Tone (Palpate): Relaxed (Renetta Muniz, RN) Monitor Mode: External US (Renetta Muniz RN) FHR Baseline Rate : 150 (Renetta Muniz RN) Variability: Moderate 6-25 bpm (Renetta Flavio, RN) Accelerations: None (Renetta Flavio, RN) Decelerations: None (Renetta Flavio, RN) LaborFlag: Antepartum (QS system process) Datetime: 04/13/2016 03:14 NBP Sys/Clarisa/Mean (mmHg): 153 (QS system process) : 73 (QS system process) : 105 (QS system process) Pulse: 68 (QS system process) Epidural Procedure: Loading Dose (Cherelle Ledgerwood, RN) LaborFlag: Antepartum (QS system process) Datetime: 04/13/2016 03:13 NBP Sys/Clarisa/Mean (mmHg): 156 (QS system process) : 81 (QS system process) : 107 (QS system process) Pulse: 78 (QS system process) LaborFlag: Antepartum (QS system process) Datetime: 04/13/2016 03:12 Epidural Procedure: Cath Placed (Cherelle Mendoza RN) Datetime: 04/13/2016 03:11 Pulse: 62 (QS system process) SpO2 (%): 99 (QS system process) Epidural Procedure: Test Dose (Cherelle Mendoza RN) LaborFlag: Antepartum (QS system process) Datetime: 04/13/2016 03:10 NBP Sys/Clarisa/Mean (mmHg): 144 (QS system process) : 104 (QS system process) : 114 (QS system process) Pulse: 96 (QS system process) Procedure Verify: Correct Patient Identity; Correct Side and Site are Marked; Agreement on Procedure to be Done; Correct Patient Position (Cherelle Ledgerwood, RN) Anesthesia Plans: Epidural (Cherelle Mendoza, RN) Epidural Positioning: Sitting (Cherelle Mendoza, RN) LaborFlag: Antepartum (QS system process) Datetime: 04/13/2016 03:06 Pulse: 77 (QS system process) SpO2 (%): 99 (QS system process) LaborFlag: Antepartum (QS system process) Datetime: 04/13/2016 03:04 Communication: Provider at Bedside (Cherelle Menodza, APOLLO) Communication Comments: Dr Murillohead at [facility] (Cherelle Mendoza, RN) Datetime: 04/13/2016 03:02 Pulse: 75 (QS system process) SpO2 (%): 93 (QS system process) LaborFlag: Antepartum (QS system process) Datetime: 04/13/2016 03:01 Pulse: 98 (QS system process) SpO2 (%): 99 (QS system process) LaborFlag: Antepartum (QS system process) Datetime: 04/13/2016 02:59 Monitor Mode: External; Palpation (Cherelle Mendoza, RN) Frequency (min): 2-3.5 (Cherelle Mendoza, RN) Quality: Moderate (Cherelle Mendoza, RN) Duration (sec): 60-80 (Cherelle Mendoza, RN) Duration Criteria: More than Two 120 Second or Greater Contractions (Cherelle Mendoza, RN) Pattern: Normal: <= 5 Contractions in 10 Minutes (Cherelle Mendoza, RN) Resting Tone (Palpate): Relaxed (Cherelle Mendoza, RN) Monitor Mode: External US (Cherelle Mendoza, RN) FHR Baseline Rate : 150 (Cherelle Ledgerwood, RN) FHR Baseline Changes: No Baseline Change (Cherelle Ledgerwood, RN) Variability: Moderate 6-25 bpm (Cherelle Ledgerwood, RN) Accelerations: None (Cherelle Ledgerwood, RN) Decelerations: None (Cherelle Ledgerwood, RN) Pitocin (milliunit): Pitocin Remains (milliunits) @ 4 (Cherelle Ledgerwood, RN) Datetime: 04/13/2016 02:55 Procedure Verify: Correct Patient Identity; Correct Side and Site are Marked; Agreement on Procedure to be Done; Correct Patient Position (Cherelle Ledgerwood, RN) Datetime: 04/13/2016 02:51 Procedure Verify: Correct Patient Identity; Correct Side and Site are Marked; Accurate Procedure Consent Form; Agreement on Procedure to be Done; Relevant Images and Results are Properly Labeled and Displayed; Addressed Need to Administer Antibiotics or Fluids for Irrigation; Safety Precautions Based on Patient History or Medication Use (Renetta Muniz RN) Anesthesia Plans: Epidural (Renetta Muniz RN) Epidural Positioning: Sitting (Renetta Muniz RN) Anesthesia Comments: Dr Marlow called for epidural placement (Renetta Muniz, APOLLO) Datetime: 04/13/2016 02:46 IV/Blood Work: New IV Bag Hung (Angie Mendosa, APOLLO) Datetime: 04/13/2016 02:44 Monitor Mode: External; Palpation (Cherelle Mendoza, APOLLO) Frequency (min): 2.5-4.5 (Cherelle Mendoza, RN) Quality: Moderate (Cherelle Mendoza, RN) Duration (sec): 80-110 (Cherelle Mendoza, RN) Duration Criteria: Less than Two 120 Second Contractions (Cherelle Mendoza, RN) Pattern: Normal: <= 5 Contractions in 10 Minutes (Cherelle Mendoza, RN) Resting Tone (Palpate): Relaxed (Cherelle Mendoza, RN) Monitor Mode: External US (Cherelle Mendoza, RN) FHR Baseline Rate : 150 (Cherelle Mendoza, RN) FHR Baseline Changes: No Baseline Change (Cherelle Mendoza RN) Variability: Moderate 6-25 bpm (Cherelle Ledgerwood, RN) Accelerations: None (Cherelle Ledgerwood, RN) Decelerations: Late (Cherelle Ledgerwood, RN) Pitocin (milliunit): Pitocin Remains (milliunits) @ 4 (Cherelle Ledgerwood, RN) Datetime: 04/13/2016 02:40 NBP Sys/Clarisa/Mean (mmHg): 143 (QS system process) : 70 (QS system process) : 98 (QS system process) Pulse: 74 (QS system process) LaborFlag: Antepartum (QS system process) Datetime: 04/13/2016 02:29 Monitor Mode: External; Palpation (Cherelle Ledgerwood, RN) Frequency (min): 2-3 (Cherelle Ledgerwood, RN) Quality: Moderate (Cherelle Ledgerwood, RN) Duration (sec): 60-80 (Cherelle Ledgerwood, RN) Duration Criteria: Less than Two 120 Second Contractions (Cherelle Ledgerwood, RN) Pattern: Normal: <= 5 Contractions in 10 Minutes (Cherelle Ledgerwood, RN) Resting Tone (Palpate): Relaxed (Cherelle Ledgerwood, RN) Monitor Mode: External US (Cherelle Ledgerwood, RN) FHR Baseline Rate : 150 (Cherelle Ledgerwood, RN) FHR Baseline Changes: No Baseline Change (Cherelle Ledgerwood, RN) Variability: Moderate 6-25 bpm (Cherelle Ledgerwood, RN) Accelerations: None (Chreelle Ledgerwood, RN) Decelerations: Late (Cherelle Ledgerwood, RN) Pitocin (milliunit): Pitocin Remains (milliunits) @ 4 (Cherelle Ledgerwood, RN) Datetime: 04/13/2016 02:25 NBP Sys/Clarisa/Mean (mmHg): 145 (QS system process) : 84 (QS system process) : 108 (QS system process) Pulse: 59 (QS system process) LaborFlag: Antepartum (QS system process) Datetime: 04/13/2016 02:18 Procedure Verify: Correct Patient Identity; Correct Side and Site are Marked; Agreement on Procedure to be Done; Correct Patient Position (Cherelle Ledgerwood, RN) Datetime: 04/13/2016 02:16 Patient Care Comments: pt is requesting an Epidural (Cherelle Ledgerwood, RN) Datetime: 04/13/2016 02:15 Monitor Mode: External; Palpation (Cherelle Ledgerwood, RN) Frequency (min): 1.5-3.5 (Cherelle Ledgerwood, RN) Quality: Mild/Moderate (Cherelle Ledgerwood, RN) Duration (sec): 60-90 (Cherelle Ledgerwood, RN) Duration Criteria: Less than Two 120 Second Contractions (Cherelle Ledgerwood, RN) Pattern: Normal: <= 5 Contractions in 10 Minutes (Cherelle Ledgerwood, RN) Resting Tone (Palpate): Relaxed (Cherelle Ledgerwood, RN) Monitor Mode: External US (Cherelle Ledgerwood, RN) FHR Baseline Rate : 150 (Cherelle Ledgerwood, RN) FHR Baseline Changes: No Baseline Change (Cherelle Ledgerwood, RN) Variability: Moderate 6-25 bpm (Cherelle Ledgerwood, RN) Accelerations: None (Cherelle Ledgerwood, RN) Decelerations: None (Cherelle Ledgerwood, RN) Pitocin (milliunit): Pitocin Remains (milliunits) @ 4 (Cherelle Mendoza, RN) Datetime: 04/13/2016 02:10 NBP Sys/Clarisa/Mean (mmHg): 145 (QS system process) : 82 (QS system process) : 107 (QS system process) Pulse: 65 (QS system process) Respirations: 15 (Cherelle Mendoza, RN) LaborFlag: Antepartum (QS system process) Datetime: 04/13/2016 02:05 Pitocin (milliunit): Pitocin Decreased to (milliunits) @ 4 (Cherelle Mendoza, RN) Datetime: 04/13/2016 02:03 Dilatation (cm): 4.0 (Cherelle Mendoza RN) Effacement (%): 70 (Cherelle Mendoza RN) Station: -2 (Cherelle APOLLO Mendoza) Exam by: Dr Richmond (Cherelle APOLLO Mendoza) Membrane Status: Ruptured (Cherelle APOLLO Mendoza) Membranes Rupture Method: Artificial (Cherelle APOLLO Mendoza) Amniotic Fluid Color: Clear (Cherelle Kelly, APOLLO) Amniotic Fluid Amount: Moderate (Cherelle APOLLO Mendoza) Amniotic Fluid Odor: Normal (Cherelle APOLLO Mendoza) Datetime: 04/13/2016 02:02 Communication: Provider at Bedside (Cherelle Kelly ) Communication Comments: [facility] Richmond [facility] Datetime: 04/13/2016 02:00 Monitor Mode: External; Palpation (Cherelle Ledgerwood, RN) Frequency (min): 1.5-4.5 (Cherelle Ledgerwood, RN) Quality: Mild/Moderate (Cherelle Ledgerwood, RN) Duration (sec): 60-80 (Cherelle Ledgerwood, RN) Duration Criteria: Less than Two 120 Second Contractions (Cherelle Ledgerwood, RN) Pattern: Normal: <= 5 Contractions in 10 Minutes (Cherelle Ledgerwood, RN) Resting Tone (Palpate): Relaxed (Cherelle Ledgerwood, RN) Monitor Mode: External US (Cherelle Ledgerwood, RN) FHR Baseline Rate : 150 (Cherelle Ledgerwood, RN) FHR Baseline Changes: No Baseline Change (Cherelle Ledgerwood, RN) Variability: Moderate 6-25 bpm (Cherelle Ledgerwood, RN) Accelerations: None (Cherelle Ledgerwood, RN) Decelerations: Late (Cherelle Ledgerwood, RN) Pitocin (milliunit): Pitocin Remains (milliunits) @ 6 (Cherelle Ledgerwood, RN) Datetime: 04/13/2016 01:55 NBP Sys/Clarisa/Mean (mmHg): 151 (QS system process) : 71 (QS system process) : 102 (QS system process) Pulse: 65 (QS system process) LaborFlag: Antepartum (QS system process) Datetime: 04/13/2016 01:46 NBP Sys/Clarisa/Mean (mmHg): 135 (QS system process) : 77 (QS system process) : 100 (QS system process) Pulse: 71 (QS system process) LaborFlag: Antepartum (QS system process) Datetime: 04/13/2016 01:45 Monitor Mode: External; Palpation (Cherelle Ledgergenesis, RN) Frequency (min): 1.5-3.5 (Cherelle Ledgerwood, RN) Quality: Mild/Moderate (Cherelle Ledgerwood, RN) Duration (sec): 70-110 (Cherelle Ledgerwood, RN) Duration Criteria: Less than Two 120 Second Contractions (Cherelle Ledgerwood, RN) Pattern: Normal: <= 5 Contractions in 10 Minutes (Cherelle Ledgerwood, RN) Resting Tone (Palpate): Relaxed (Cherelle Ledgerwood, RN) Monitor Mode: External US (Cherelle Ledgerwood, RN) FHR Baseline Rate : 150 (Cherelle Ledgerwood, RN) FHR Baseline Changes: No Baseline Change (Cherelle Ledgerwood, RN) Variability: Moderate 6-25 bpm (Cherelle Ledgerwood, RN) Accelerations: None (Cherelle Ledgerwood, RN) Decelerations: None (Cherelle Ledgerwood, RN) Pitocin (milliunit): Pitocin Remains (milliunits) @ 6 (Cherelle Ledgerwood, RN) Datetime: 04/13/2016 01:30 Monitor Mode: External; Palpation (Cherelle Ledgerwood, RN) Frequency (min): 2-3.5 (Cherelle Ledgerwood, RN) Quality: Mild/Moderate (Cherelle Ledgerwood, RN) Duration (sec): 70-130 (Cherelle Ledgerwood, RN) Duration Criteria: Less than Two 120 Second Contractions (Cherelle Ledgerwood, RN) Pattern: Normal: <= 5 Contractions in 10 Minutes (Cherelle Ledgerwood, RN) Resting Tone (Palpate): Relaxed (Cherelle Ledgerwood, RN) Monitor Mode: External US (Cherelle Ledgerwood, RN) FHR Baseline Rate : 145 (Cherelle Ledgerwood, RN) FHR Baseline Changes: No Baseline Change (Cherelle Ledgerwood, RN) Variability: Moderate 6-25 bpm (Cherelle Ledgerwood, RN) Accelerations: 15X15 (Cherelle Ledgerwood, RN) Decelerations: None (Cherelle Ledgerwood, RN) Pitocin (milliunit): Pitocin Remains (milliunits) @ 6 (Cherelle Ledgerwood, RN) Datetime: 04/13/2016 01:25 NBP Sys/Clarisa/Mean (mmHg): 131 (QS system process) : 72 (QS system process) : 96 (QS system process) Pulse: 62 (QS system process) LaborFlag: Antepartum (QS system process) Datetime: 04/13/2016 01:20 Pitocin (milliunit): Pitocin Increased to (milliunits) @ 6 (Cherelle Raymondgerwood, RN) Datetime: 04/13/2016 01:15 Monitor Mode: External; Palpation (Cherelle Ledgerwood, RN) Frequency (min): irreg (Cherelle Ledgerwood, RN) Quality: Mild/Moderate (Cherelle Ledgerwood, RN) Duration (sec): 60-100 (Cherelle Ledgerwood, RN) Duration Criteria: Less than Two 120 Second Contractions (Cherelle Ledgerwood, RN) Pattern: Normal: <= 5 Contractions in 10 Minutes (Cherelle Ledgerwood, RN) Resting Tone (Palpate): Relaxed (Cherelle Raymondgerwood, RN) Monitor Mode: External US (Cherelle Ledgerwood, RN) FHR Baseline Rate : 150 (Cherelle Ledgerwood, RN) FHR Baseline Changes: No Baseline Change (Cherelle Ledgerwood, RN) Variability: Moderate 6-25 bpm (Cherelle Ledgerwood, RN) Accelerations: 15X15 (Cherelle Ledgerwood, RN) Decelerations: None (Cherelle Ledgerwood, RN) Pitocin (milliunit): Pitocin Remains (milliunits) @ 4 (Cherelle Ledgerwood, RN) Datetime: 04/13/2016 01:09 NBP Sys/Clarisa/Mean (mmHg): 133 (QS system process) : 77 (QS system process) : 100 (QS system process) Pulse: 69 (QS system process) LaborFlag: Antepartum (QS system process) Datetime: 04/13/2016 01:00 Monitor Mode: External; Palpation (Cherelle Ledgerwood, RN) Frequency (min): 4-5 (Cherelle Ledgerwood, RN) Quality: Mild/Moderate (Cherelle Ledgerwood, RN) Duration (sec): 80-100 (Cherelle Ledgerwood, RN) Duration Criteria: Less than Two 120 Second Contractions (Cherelle Ledgerwood, RN) Pattern: Normal: <= 5 Contractions in 10 Minutes (Cherelle Ledgerwood, RN) Resting Tone (Palpate): Relaxed (Cherelle Ledgerwood, RN) Monitor Mode: External US (Cherelle Ledgerwood, RN) FHR Baseline Rate : 145 (Cherelle Ledgerwood, RN) FHR Baseline Changes: No Baseline Change (Cherelle Ledgerwood, RN) Variability: Moderate 6-25 bpm (Cherelle Ledgerwood, RN) Accelerations: 15X15 (Cherelle Ledgerwood, RN) Decelerations: None (Cherelle Ledgerwood, RN) Pitocin (milliunit): Pitocin Increased to (milliunits) @ 4 (Cherelle Ledgerwood, RN) Datetime: 04/13/2016 00:54 NBP Sys/Clarisa/Mean (mmHg): 126 (QS system process) : 74 (QS system process) : 95 (QS system process) Pulse: 76 (QS system process) LaborFlag: Antepartum (QS system process) Datetime: 04/13/2016 00:45 Monitor Mode: External; Palpation (Cherelle Ledgerwood, RN) Frequency (min): irreg (Cherelle Ledgerwood, RN) Quality: Mild (Cherelle Ledgerwood, RN) Duration (sec): 70-90 (Cherelle Ledgerwood, RN) Duration Criteria: Less than Two 120 Second Contractions (Cherelle Ledgerwood, RN) Pattern: Normal: <= 5 Contractions in 10 Minutes (Cherelle Ledgerwood, RN) Resting Tone (Palpate): Relaxed (Cherelle Ledgerwood, RN) Monitor Mode: External US (Cherelle Ledgerwood, RN) FHR Baseline Rate : 155 (Cherelle Ledgerwood, RN) FHR Baseline Changes: No Baseline Change (Cherelle Ledgerwood, RN) Variability: Moderate 6-25 bpm (Cherelle Ledgerwood, RN) Accelerations: 15X15 (Cherelle Ledgerwood, RN) Decelerations: None (Cherelle Ledgerwood, RN) Pitocin (milliunit): Pitocin Remains (milliunits) @ 2 (Cherelle Ledgerwood, RN) Datetime: 04/13/2016 00:41 NBP Sys/Clarisa/Mean (mmHg): 122 (QS system process) : 65 (QS system process) : 86 (QS system process) Pulse: 75 (QS system process) LaborFlag: Antepartum (QS system process) Datetime: 04/13/2016 00:40 Pitocin (milliunit): Pitocin Started (milliunits) @ 2 (Cherelle Ledgerwood, RN) Datetime: 04/13/2016 00:30 Monitor Mode: External; Palpation (Cherelle Ledgerwood, RN) Frequency (min): irreg (Cherelle Ledgerwood, RN) Quality: Mild (Cherelle Ledgerwood, RN) Duration (sec): 60-110 (Cherelle Ledgerwood, RN) Duration Criteria: Less than Two 120 Second Contractions (Cherelle Ledgerwood, RN) Pattern: Normal: <= 5 Contractions in 10 Minutes (Cherelle Ledgerwood, RN) Resting Tone (Palpate): Relaxed (Cherelle Ledgerwood, RN) Monitor Mode: External US (Cherelle Ledgerwood, RN) FHR Baseline Rate : 145 (Cherelle Ledgerwood, RN) FHR Baseline Changes: No Baseline Change (Cherelle Ledgerwood, RN) Variability: Moderate 6-25 bpm (Cherelle Ledgerwood, RN) Accelerations: 15X15 (Cherelle Ledgerwood, RN) Decelerations: None (Cherelle Ledgerwood, RN) Datetime: 04/13/2016 00:24 NBP Sys/Clarisa/Mean (mmHg): 133 (QS system process) : 73 (QS system process) : 96 (QS system process) Pulse: 81 (QS system process) LaborFlag: Antepartum (QS system process) Datetime: 04/13/2016 00:19 IV/Blood Work: IV Started; New IV Bag Hung (Cherelle Andradegerwood, RN) Patient Care Comments: 18 G right wrist ([facility], [facility]) Datetime: 04/13/2016 00:10 NBP Sys/Clarisa/Mean (mmHg): 133 (QS system process) : 75 (QS system process) : 99 (QS system process) Pulse: 74 (QS system process) LaborFlag: Antepartum (QS system process) Datetime: 04/13/2016 00:08 Procedures: Labs Drawn (Cherelle Andradegergenesis, RN) Datetime: 04/13/2016 00:00 Monitor Mode: External; Palpation (Cherelle Andradegerwood, RN) Frequency (min): irreg (Cherelle Ledgerwood, RN) Quality: Mild (Cherelle Ledgerwood, RN) Duration (sec): 120-130 (Cherelle Ledgerwood, RN) Pattern: Normal: <= 5 Contractions in 10 Minutes (Cherelle Ledgerwood, RN) Resting Tone (Palpate): Relaxed (Cherelle Ledgerwood, RN) Monitor Mode: External US (Cherelle Raymondgerwood, RN) FHR Baseline Rate : 145 (Cherelle Ledgerwood, RN) FHR Baseline Changes: No Baseline Change (Cherelle Ledgerwood, RN) Variability: Moderate 6-25 bpm (Cherelle Ledgerwood, RN) Accelerations: 15X15 (Cherelle Ledgerwood, RN) Decelerations: None (Cherelle Ledgerwood, RN) Datetime: 04/12/2016 23:55 Communication: Provider Orders Received (Cherelle Kelly, RN) Communication Comments: Orders received to admit pt., start pitocin at 2 mu/h and go up by 2 every 5 min. (Cherelle Ledgerwood, RN) Datetime: 04/12/2016 23:54 Dilatation (cm): 4.0 (Cherelle Ledgerwood, RN) Effacement (%): 70 (Cherelle Ledgerwood, RN) Station: -2 (Cherelle Ledgerwood, RN) Exam by: Dr Richmond (Cherelle Ledgerwood, RN) Datetime: 04/12/2016 23:53 Communication: Provider at Bedside (Cherelle Mendoza RN) Communication Comments: Dr Richmond at bedside (Cherelle Mendoza RN) Datetime: 04/12/2016 23:40 NBP Sys/Clarisa/Mean (mmHg): 145 (QS system process) : 70 (QS system process) : 101 (QS system process) Pulse: 82 (QS system process) LaborFlag: Antepartum (QS system process) Datetime: 04/12/2016 23:30 Monitor Mode: External; Palpation (Cherelle Mendoza, RN) Frequency (min): x1 (hCerelle Mendoza, RN) Quality: Mild (Cherelle Mendoza, RN) Duration (sec): 120 (Cherelle Mendoza, RN) Duration Criteria: Less than Two 120 Second Contractions (Cherelle Mendoza, RN) Resting Tone (Palpate): Relaxed (Cherelle Ledgerwood, RN) Monitor Mode: External US (Cherelle Ledgerwood, RN) FHR Baseline Rate : 155 (Cherelle Ledgerwood, RN) FHR Baseline Changes: No Baseline Change (Cherelle Ledgerwood, RN) Variability: Moderate 6-25 bpm (Cherelle Ledgerwood, RN) Accelerations: 10X10 (Cherelle Ledgerwood, RN) Decelerations: None (Cherelle Ledgerwood, RN) Datetime: 04/12/2016 23:25 NBP Sys/Clarisa/Mean (mmHg): 137 (QS system process) : 64 (QS system process) : 92 (QS system process) Pulse: 80 (QS system process) Respirations: 14 (Cherelle Ledgerwood, RN) Temperature (F): 98.0 (Cherelle Ledgerwood, RN) Temperature (C): 36.7 (QS system process) Temperature Route: Oral (Cherelle Ledgerwood, RN) LaborFlag: Antepartum (QS system process) Datetime: 04/12/2016 23:20 Patient Position/Activity: Left Tilt (Cherelle Ledgerwood, RN) Datetime: 04/12/2016 23:10 Communication Comments: Report to O. Ledgerwood, RN, care relinquished (Melinda Vitrano, RN) Datetime: 04/12/2016 23:00 Communication Comments: Report received from B Vitrano RN (Cherelle Ledgerwood, RN) Datetime: 04/12/2016 22:49 Patient Care Comments: Pt ambulating in stable condition with FOB (Melinda Vitrano, RN) Datetime: 04/12/2016 22:39 Pain Scale: 3 (Melinda Disla RN) Pain Presence: Constant (Melinda Disla RN) Pain Type: Ache (Melinda Disla RN) Pain Location: Head (Melinda Disla RN) Pain Assessment Comments: Pt states headache feels "much better" (Melinda Disla RN) Communication Comments: Dr. Richmond remains at bedside, reviewed strip. Pt and support verbalize understanding of POC and are in agreement with POC. Deny further questions at this time. Orders received from Dr. Richmond to d/c monitors and allow pt to ambulate for 30 min then resume monitoring. May d/c monitors for 30 min ambulation every 1.5-2 hours. (Melinda Disla RN) LaborFlag: Antepartum (QS system process) Datetime: 04/12/2016 22:38 NBP Sys/Clarisa/Mean (mmHg): 144 (QS system process) : 86 (QS system process) : 110 (QS system process) Pulse: 80 (QS system process) Respirations: 16 (Melinda Disla RN) LaborFlag: Antepartum (QS system process) Datetime: 04/12/2016 22:33 Communication Comments: Dr. Richmond remains at bedside reviewing POC and answering pt questions, reviewing POC. (Melinda Vitrano, RN) Datetime: 04/12/2016 22:30 Monitor Mode: External (Melinda Vitrano, RN) Frequency (min): Occasional (Melinda Vitrano, RN) Quality: Mild (Melinda Vitrano, RN) Duration (sec): 60-70 (Melinda Vitrano, RN) Pattern: Normal: <= 5 Contractions in 10 Minutes (Melinda Vitrano, RN) Resting Tone (Palpate): Relaxed (Melinda Vitrano, RN) Monitor Mode: External US (Melinda Vitrano, RN) FHR Baseline Rate : 150 (Melinda Vitrano, RN) Variability: Moderate 6-25 bpm (Melinda Vitrano, RN) Accelerations: 15X15 (Melinda Vitrano, RN) Decelerations: None (Melinda Vitrano, RN) Datetime: 04/12/2016 22:24 Communication Comments: Dr. Richmond at bedside per pt request, reviewing POC and pt hx (Melinda Vitrano, RN) Datetime: 04/12/2016 22:23 NBP Sys/Clarisa/Mean (mmHg): 130 (QS system process) : 61 (QS system process) : 88 (QS system process) Pulse: 84 (QS system process) Respirations: 16 (Melinda Vitrano, RN) LaborFlag: Antepartum (QS system process) Datetime: 04/12/2016 22:21 Patient Care Comments: Provided materials for 24 hour urine, pt verbalized understanding on collection (Melinda Disla RN) Datetime: 04/12/2016 22:20 Communication Comments: Consents reviewed and signed (Melinda Disla RN) Datetime: 04/12/2016 22:17 Instructional Method: Verbal; Patient Instructed; Family/Support Person Instructed; Verbalized Understanding (Melinda Disla RN) Plan of Care: Plan of Care Discussed (Melinda Disla RN) Teaching Comments: Reviewed POC and answered pt questions. Pt requesting to speak with Dr. Richmond. Dr. Richmond notified, provider will be to pt bedside shortly. (Melinda Disla RN) Datetime: 04/12/2016 22:15 Communication Comments: Orders from Dr. Richmond; may consider urine collection for lab first discarded specimen of 24 hour urine. Start time of 24 hour urine 2130. (Melinda Vitrano, RN) Datetime: 04/12/2016 22:08 NBP Sys/Clarisa/Mean (mmHg): 147 (QS system process) : 74 (QS system process) : 104 (QS system process) Pulse: 86 (QS system process) Respirations: 16 (Melinda Vitrano, RN) LaborFlag: Antepartum (QS system process) Datetime: 04/12/2016 22:00 Monitor Mode: External; Palpation (Melinda Vitrano, RN) Frequency (min): Occasional (Melinda Vitrano, RN) Quality: Mild (Melinda Vitrano, RN) Duration (sec): 50-90 (Melinda Vitrano, RN) Pattern: Normal: <= 5 Contractions in 10 Minutes (Melinda Vitrano, RN) Resting Tone (Palpate): Relaxed (Melinda Vitrano, RN) Monitor Mode: External US (Melinda Vitrano, RN) FHR Baseline Rate : 145 (Melinda Vitrano, RN) Variability: Moderate 6-25 bpm (Melinda Vitrano, RN) Accelerations: 15X15 (Melinda Vitrano, RN) Decelerations: None (Melinda Vitrano, RN) Communication Comments: Dr. Richmond on unit, reviewed strip and VS. Orders received to change pt status to observation. Orders to continue BPs q 15, continue monitoring, and start new 24 hour urine. Pt may have Fioricet PO q 6 PRN for headache pain. No IV required. (Melinda Vitrano, RN) Datetime: 04/12/2016 21:59 Monitor Interventions for FHR: Ultrasound Adjusted (Melinda Vitrano, RN) Datetime: 04/12/2016 21:57 Medication Comments: Fioricet 1 tab PO (Melinda Vitrano, RN) Datetime: 04/12/2016 21:53 NBP Sys/Clarisa/Mean (mmHg): 130 (QS system process) : 64 (QS system process) : 91 (QS system process) Pulse: 83 (QS system process) Respirations: 16 (Melinda Vitrano, RN) LaborFlag: Antepartum (QS system process) Datetime: 04/12/2016 21:51 Patient Position/Activity: Left Lateral; Semi-Fowlers (Melinda Vitrano, RN) Datetime: 04/12/2016 21:50 Comments: Broken tracing d/t pt movement (Melinda Nighat, RN) Datetime: 04/12/2016 21:45 Communication Comments: Dr. Richmond on unit. Report given to include EGA 39.2, , pt complaints, pt history, nursing assessment, VS, toco tracing FHTs. Orders for serial BPs, NST, Fioricet 1 tab PO x1 now for headache. (Melinda Nighat, RN) Datetime: 04/12/2016 21:41 Pain Scale: 4 (Melinda Nighat, RN) Pain Presence: Constant (Melinda Cindyano, RN) Pain Type: Ache (Annotations: Throbbing) (Melinda Cindyano, RN) Pain Location: Head (Melinda Vitrano, RN) Membrane Status: Intact (Melinda Vitrano, RN) Vaginal Bleeding: None (Melinda Cindyano, RN) Level of Consciousness: Fully Conscious (Melinda Cindyano, RN) DTR's/Clonus: DTRs 2+; No Clonus (Melinda Cindyano, RN) Headache: Frontal (Melinda Vitrano, RN) Breath Sounds, Left: Clear and Equal (Melinda Disla, RN) Breath Sounds, Right: Clear and Equal (Melinda Disla RN) Nausea/Vomiting: Denies (Melinda Disla RN) RUQ Epigastric Pain: Denies (Annotations: No RUQ tenderness on palpation; tender to palpation R flank) (Melinda Disla RN) LaborFlag: Antepartum (QS system process) Datetime: 04/12/2016 21:38 NBP Sys/Clarisa/Mean (mmHg): 131 (QS system process) : 79 (QS system process) : 100 (QS system process) Pulse: 99 (QS system process) Respirations: 16 (Melinda Disla RN) LaborFlag: Antepartum (QS system process) Datetime: 04/12/2016 21:36 Instructional Method: Verbal; Patient Instructed; Family/Support Person Instructed; Verbalized Understanding (Melinda Disla RN) Plan of Care: Plan of Care Discussed (Melinda Disla RN) Unit Routine: [place] to Room; Call [place]; Bed; Unit Personnel; IV Pumps; Safety/Fall Risk Prevention; Bathroom Privileges (Melinda Disla RN) Datetime: 04/12/2016 21:30 Stage of : Antepartum (Cherelle Mendoza RN)
--- NOTE | 2016-04-13 08:06 | Delivery Summary ---
Del Sum A-C Datetime Report Generated by CPN: 04/13/2016 08:06 ADMISSION DATA Chief Complaint: Signs/Symptoms Gestational HTN Indication for Induction: Gest. HTN/PreEclampsia/Eclampsia Admission Impression: Term, Intrauterine Admit Provider Comments: 25yo at 39+2ega presented with severe range BP from pharmacy after being discharged today with normal BPs. BPs on review of [facility] records indicative of GHTN. NO e/o preE. Pelvis proven to 6#3oz. GBS negative. Admit for IOL for GHTN. Pelvis proven. Anticpate . Section for maternal/ indicaitons. DELIVERY PERSONNEL Delivery Doctor:: Ekaterina Richmond MD Labor and Delivery Nurse:: Cherelle Mendoza RN Nursery Nurse:: Suzette Mora RN MSN MATERNAL INFORMATION Delivery Anesthesia: Epidural Medications After Delivery: Pitocin Bolus-Please Comment; Pitocin Drip 20 Units/1000ml NSS Estimated Blood Loss (ml): 400 Maternal Complications: None Provider Comments: VMI delivered in direct OA presentation. No nuchal cord. Shoulders and body delivered w/o difficulty. Cord doubly clamped and cut and infant to maternal abd for NRP. Placenta delivered intact spontaneously. FF at U then intermittent atony resolved with straight cath and with cytotec 1000mcg and then 40 units of pitocin. FF at U after uterotonics. Mother and baby stable upon provider leaving the room. Apgars 8/9. LABOR SUMMARY EDC: 04/17/2016 00:00 No. Babies in Womb: 1 Attempted: No Labor Anesthesia: Epidural LABOR INFORMATION Reason for Induction: Gestational Hypertension Onset of Labor: 04/13/2016 04:00 Complete Dilatation: 04/13/2016 04:48 Oxytocin: Induction Group B Beta Strep: Negative Antibiotics # of Doses: 0 Steroids Given: None Reason Steroids Not Administered: Not Applicable MEMBRANES Membranes Rupture Method: Artificial Rupture of Membranes: 04/13/2016 02:03 Length of Rupture (hr): 3.63 Amniotic Fluid Color: Clear Amniotic Fluid Amount: Moderate Amniotic Fluid Odor: Normal STAGES OF LABOR Stage 1 hr: 0 Stage 1 min: 48 Stage 2 hr: 0 Stage 2 min: 53 Stage 3 hr: 0 Stage 3 min: 6 Total Time in Labor hr: 1 Total Time in Labor min: 47 VAGINAL DELIVERY Episiotomy: None Laceration Extension: N/A Laceration Type: None Sponge Count Correct: Yes Sharps Count Correct: Yes BABY A INFORMATION Infant Delivery Date/Time: 04/13/2016 05:41 Method of Delivery: Vaginal Born in Route : No : N/A Forceps: N/A Vacuum Extraction: N/A Shoulder Dystocia : No PRESENTATION/POSITION BABY A Presentation: Cephalic Cephalic Presentation: Vertex Vertex Position: Left Occipital Transverse Breech Presentation: N/A PLACENTA INFORMATION BABY A Placenta Delivery Time : 04/13/2016 05:47 Placenta Method of Delivery: Spontaneous Placenta Status: Delivered SCORES BABY A Heart Rate 1 min: >100 bpm Resp Effort 1 min: Good Cry Reflex Irritability 1 min: Cough or Sneeze or Pulls Away Muscle Tone 1 min: Active Motion Color 1 min: Blue/Pale Resuscitation Effort 1 min: Tactile Stimulation SCORE 1 MIN: 8 Heart Rate 5 min: >100 bpm Resp Effort 5 min: Good Cry Reflex Irritability 5 min: Cough or Sneeze or Pulls Away Muscle Tone 5 min: Active Motion Color 5 min: Body Gate, Extremities Blue Resuscitation Effort 5 min: Tactile Stimulation SCORE 5 MIN: 9 INFORMATION BABY A Gestational Age at Delivery: 39.3 Gestational Status: Full Term- 39- 40.6 Weeks Outcome : Liveborn Condition : Stable Infant Sex: Male IDENTIFICATION BABY A Verification Date/Time: 04/13/2016 06:18 ID Band Number: [id number] Mother's Name Verified: Yes Infant RN Verifying Infant: O Ledgerwood RN Additional Verifying Personnel: B Guerra WEIGHT/LENGTH BABY A Birthweight (gm): 3510 Infant Weight (lb): 7 Weight (oz): 12 Length (in): 21.00 Infant Length (cm): 53.34 CORD INFORMATION BABY A No. Cord Vessels: 3 Nuchal Cord : N/A Cord Blood Taken: Yes-For Eval (Mom's Blood Type - or O+) Infant Suction: None ASSESSMENT BABY A Skin to Skin: Yes Skin to Skin Time (min): 90
[2016-04-13] MEDS: SENNOSIDES/DOCUSATE 8.6-50 MG 1 EACH TABLET PO SCH (09:42)
[2016-04-13] MEDS: PRENATAL VITAMIN W-O CA NO5/FE FUMARATE/FA CAPSULE PO SCH (09:42)
[2016-04-13] MEDS: DOCUSATE SODIUM 100 MG CAPSULE PO SCH ×2 (09:42→17:44)
[2016-04-13] MEDS: FERROUS SULFATE 325 MG TABLET PO SCH ×2 (09:43→17:44)
[2016-04-13] MEDS: IBUPROFEN 800 MG TABLET PO SCH ×2 (14:25→21:18)
--- NOTE | 2016-04-13 19:01 | L&D Flow Sheet ---
LD Flowsheet Datetime Report Generated by CPN: 04/13/2016 19:00 Datetime: 04/13/2016 07:20 Respirations: 20 (Rojas Valentina, RN) Pain Presence: None/Denies (Rojas Valentina, RN) Datetime: 04/13/2016 07:13 NBP Sys/Clarisa/Mean (mmHg): 105 (QS system process) : 59 (QS system process) : 78 (QS system process) Pulse: 56 (QS system process)
[2016-04-14] MEDS: IBUPROFEN 800 MG TABLET PO SCH ×3 (06:04→21:51)
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
--- NOTE | 2016-04-14 06:24 | L&D Care Plan ---
LD CARE PLANS Datetime Report Generated by CPEm: 04/14/2016 06:15 Datetime: 04/12/2016 23:04 State: Risk For (Melinda Disla RN) Related To: Labor and Delivery Process; Treatment and Procedures (Melinda Disla RN) Goal(s): Patients Pain will be Assessed and Managed; Patient will Verbalize Adequate Relief of Pain or the Ability to [place] with Current Pain (Melinda Disla RN) Interventions: Assess Pain Severity on Scale of 0 (None) to 5 (Severe); Assess Type, Location and Intensity of Pain Each Time Client Reports Discomfort and Notify Provider if Unusal Pain Develops; Encourage Proper Breathing and Relaxation Techniques; Offer Alternatives Such as Repositioning, Calm Environment, Massages, Diversional Activities, Ice Pack, Splinting, and Ambulation; Administer Analgesics as Ordered; Assist with Epidural Placement as Appropriate; Evaluate Therapeutic Effectiveness of Medication and Treatments (Melinda Disla RN) Outcome: Patient will Report Absence or Relief of Pain Consistent with Established Pain Goal (Melinda Disla RN) Status: Ongoing (Melinda Disla RN) Outcome: Patient will have a Decrease in Signs and Symptoms of Discomfort (Melinda Disla RN) Status: Ongoing (Melinda Disla RN) Outcome: Pain will be Controlled During Procedures (Melinda Disla RN) Status: Ongoing (Melinda Disla RN) State: Risk For (Melinda Disla RN) Related To: Fear of Unknown; Medical Interventions (Melinda Disla RN) Goal(s): Patient will have Decreased Anxiety and be able to Function at Acceptable Levels (Melinda Disla RN) Interventions: Assess Verbal and Nonverbal Behavioral Indicators of Anxiety; Assist Patient to Identify and Verbalize Symptoms of Anxiety; Identify and Demonstrate Techniques to Control Anxiety; Assist Patient with Coping Mechanisms to Manage Anxiety; Provide Theraputic Touch for the Patient; Explain to Patient, Using a Calm Reassuring Approach and Nonmedical Terms, All Activities, Procedures, and Concerns; Instruct Patient and Family about Post Discharge Care, Limitations, Symptoms to Report and Resources Available (Melinda Disla RN) Outcome: Patient will Identify, Verbalize and Demonstrate Techniques to Control Anxiety (Melinda Disla RN) Status: Ongoing (Melinda Disla RN) Outcome: Patient's Posture, Facial Expressions, Gestures and Activity Level will Reflect Decreased Anxiety (Melinda Disla RN) Status: Ongoing (Melinda Disla RN) Outcome: Patient will Verbalize a Sense of Control and/or Acceptance of the Situation (Melinda Disla RN) Status: Ongoing (Melinda Disla RN) Outcome: Patient will Identify and Utilize Support Person (Melinda Disla RN) Status: Ongoing (Melinda Disla RN) State: Not Applicable (Melinda Disla RN) State: Not Applicable (Melinda Disla RN) State: Not Applicable (Melinda Disla RN) State: Risk For (Melinda Disla RN) Related To: Labor and Delivery Process (Melinda Disla RN) Goal(s): Patient will Remain Free from Injury (Melinda iDsla RN) Interventions: Monitoring as per Hospital Protocol; Assess Neurological Status; Perform Risk Assessment of Patients with Induction and ; Perform Fall Risk Assessment and Prevention per Hospital Protocol; Perform DVT Risk Assessment and Prophylaxis per Hospital Protocol; Ensure that Oxygen, Suction, and Resuscitation Medications and Equipment are Readily Available; Confirm Patient ID Prior to Procedure(s) and Medication Administration per Hospital Policy (Melinda Disla RN) Outcome: Successful Fall Risk Prevention (Melinda Disla RN) Status: Ongoing (Melinda Disla RN) Outcome: Patient will Deliver without Adverse Sequela (Melinda Disla RN) Status: Ongoing (Melinda Disla RN) Outcome: Patient's Neurological Status will Remain Stable (Melinda Disla RN) Status: Ongoing (Melinda Disla RN) State: Not Applicable (Melinda Disla RN) State: Not Applicable (Melinda Disla RN) State: Not Applicable (Melinda Disla RN) State: Not Applicable (Melinda Disla RN) State: Not Applicable (Melinda Disla RN) Datetime: 04/12/2016 23:03 State: Risk For (Melinda Disla RN) Related To: Labor and Delivery Process; Treatment and Procedures (Melinda Disla RN) Goal(s): Patients Pain will be Assessed and Managed; Patient will Verbalize Adequate Relief of Pain or the Ability to [place] with Current Pain (Melinda Disla RN) Interventions: Assess Pain Severity on Scale of 0 (None) to 5 (Severe); Assess Type, Location and Intensity of Pain Each Time Client Reports Discomfort and Notify Provider if Unusal Pain Develops; Encourage Proper Breathing and Relaxation Techniques; Offer Alternatives Such as Repositioning, Calm Environment, Massages, Diversional Activities, Ice Pack, Splinting, and Ambulation; Administer Analgesics as Ordered; Assist with Epidural Placement as Appropriate; Evaluate Therapeutic Effectiveness of Medication and Treatments (Melinda Disla RN) Outcome: Patient will Report Absence or Relief of Pain Consistent with Established Pain Goal (Melinda Disla RN) Status: Ongoing (Melinda Disla RN) Outcome: Patient will have a Decrease in Signs and Symptoms of Discomfort (Melinda Disla RN) Status: Ongoing (Melinda Disla RN) Outcome: Pain will be Controlled During Procedures (Melinda Disla RN) Status: Ongoing (Melinda Disla RN) State: Risk For (Melinda Disla RN) Related To: Fear of Unknown; Medical Interventions (Melinda Disla RN) Goal(s): Patient will have Decreased Anxiety and be able to Function at Acceptable Levels (Melinda Disla RN) Interventions: Assess Verbal and Nonverbal Behavioral Indicators of Anxiety; Assist Patient to Identify and Verbalize Symptoms of Anxiety; Identify and Demonstrate Techniques to Control Anxiety; Assist Patient with Coping Mechanisms to Manage Anxiety; Provide Theraputic Touch for the Patient; Explain to Patient, Using a Calm Reassuring Approach and Nonmedical Terms, All Activities, Procedures, and Concerns; Instruct Patient and Family about Post Discharge Care, Limitations, Symptoms to Report and Resources Available (Melinda Disla RN) Outcome: Patient will Identify, Verbalize and Demonstrate Techniques to Control Anxiety (Melinda Disla RN) Status: Ongoing (Melinda Disla RN) Outcome: Patient's Posture, Facial Expressions, Gestures and Activity Level will Reflect Decreased Anxiety (Melinda Disla RN) Status: Ongoing (Melinda Disla RN) Outcome: Patient will Verbalize a Sense of Control and/or Acceptance of the Situation (Melinda Disla RN) Status: Ongoing (Melinda Disla RN) Outcome: Patient will Identify and Utilize Support Person (Melinda Disla RN) Status: Ongoing (Melinda Disla RN) State: Not Applicable (Melinda Disla RN) State: Not Applicable (Melinda Disla RN) State: Not Applicable (Melinda Disla RN) State: Risk For (Melinda Disla RN) Related To: Labor and Delivery Process (Melinda Disla RN) Goal(s): Patient will Remain Free from Injury (Melinda Disla RN) Interventions: Monitoring as per Hospital Protocol; Assess Neurological Status; Perform Risk Assessment of Patients with Induction and ; Perform Fall Risk Assessment and Prevention per Hospital Protocol; Perform DVT Risk Assessment and Prophylaxis per Hospital Protocol; Ensure that Oxygen, Suction, and Resuscitation Medications and Equipment are Readily Available; Confirm Patient ID Prior to Procedure(s) and Medication Administration per Hospital Policy (Melinda Disla RN) Outcome: Successful Fall Risk Prevention (Melinda Disla RN) Status: Ongoing (Melinda Disla RN) Outcome: Patient will Deliver without Adverse Sequela (Melinda Disla RN) Status: Ongoing (Melinda Disla RN) Outcome: Patient's Neurological Status will Remain Stable (Melinda Disla RN) Status: Ongoing (Melinda Disla RN) State: Not Applicable (Melinda Disla RN) State: Not Applicable (Melinda Disla RN) State: Not Applicable (Melinda Disla RN) State: Not Applicable (Melinda Disla RN) State: Not Applicable (Melinda Disla RN)
[2016-04-14 07:59] LABS: HEMATOCRIT 30.1 % (36.0-47.0); HEMOGLOBIN 9.9 g/dL (12.0-15.5); HGB HCT DIFFERENCE -0.4; MEAN CORPUSCULAR HEMOGLOBIN 27.4 pg (27.0-33.4); MEAN CORPUSCULAR HGB CONC 32.9 g/dL (32.0-36.0); MEAN CORPUSCULAR VOLUME 83 fl (80-97); RED BLOOD COUNT 3.61 10^6/uL (3.72-5.28); WHITE BLOOD COUNT 9.6 10^3/uL (4.0-10.5)
[2016-04-14] MEDS: DOCUSATE SODIUM 100 MG CAPSULE PO SCH ×2 (10:38→17:22)
[2016-04-14] MEDS: SENNOSIDES/DOCUSATE 8.6-50 MG 1 EACH TABLET PO SCH (10:38)
[2016-04-14] MEDS: PRENATAL VITAMIN W-O CA NO5/FE FUMARATE/FA CAPSULE PO SCH (10:38)
[2016-04-14] MEDS: FERROUS SULFATE 325 MG TABLET PO SCH ×2 (10:38→17:22)
--- NOTE | 2016-04-14 10:49 | PDOC PROGRESS REPORT ---
Subjective-OB Subjective: Post Delivery Day: 1 25 year old. Denies any needs at this time, states lochia is stable, tolerating diet, voiding without difficulty. Physical Exam (OB) Vital Signs: Temp Pulse Resp BP Pulse Ox 97.9 F 56 L 17 140/69 H 100 04/14/16 07:48 04/14/16 07:48 04/14/16 07:48 04/14/16 07:48 04/14/16 07:48 Intake & Output 04/13/16 04/14/16 04/15/16 06:59 06:59 06:59 Intake Total 500 Balance 500 Weight 88 kg - Lochia Lochia Amount: Scant < 10 ml Lochia Color: Rubra/Red - Abdomen Description: Tender, Soft, Round Hernia Present: No Fundal Description: Firm, Midline Fundal Height: u/u - u/2 Objective-Diagnostic Laboratory: 04/14/16 07:36 04/13/16 00:10 04/14/16 07:36 WBC 9.6 RBC 3.61 L Hgb 9.9 L Hct 30.1 L MCV 83 MCH 27.4 MCHC 32.9 RDW 15.0 H Plt Count 285 Assessment and Plan(PN) - Assessment and Plan (1) Delivery normal Is this a current diagnosis for this admission?: YesPlan: routine pp care (2) Pre-eclampsia Is this a current diagnosis for this admission?: YesPlan: monitor bp - Time Spent with Patient Time with patient: Less than 15 minutes Critical Time spent with patient: Less than 15 minutes Medications reviewed and adjusted accordingly: Yes - Disposition Anticipated Discharge: Home Within: within 48 hours
[2016-04-15] MEDS: IBUPROFEN 800 MG TABLET PO SCH ×2 (06:03→13:18)
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
[2016-04-15 08:14] VITALS: BP 141/80
[2016-04-15] MEDS: FERROUS SULFATE 325 MG TABLET PO SCH (09:10)
[2016-04-15] MEDS: PRENATAL VITAMIN W-O CA NO5/FE FUMARATE/FA CAPSULE PO SCH (09:11)
[2016-04-15] MEDS: DOCUSATE SODIUM 100 MG CAPSULE PO SCH (09:11)
[2016-04-15] MEDS: SENNOSIDES/DOCUSATE 8.6-50 MG 1 EACH TABLET PO SCH (09:11)
--- NOTE | 2016-04-15 09:42 | PDOC DISCHARGE SUMMARY ---
Discharge Summary-OB Discharge Date: 04/15/16 - Final Diagnosis (1) Delivery normal Is this a current diagnosis for this admission?: Yes (2) Pre-eclampsia Is this a current diagnosis for this admission?: Yes - Discharge Medication Home Medications: Vit#96/Ferrous Fum/FA [ Tablet] 1 each PO DAILY 06/13/14 Acetaminophen [Tylenol] 650 mg PO PRN PRN 03/09/16 Docusate Sodium [Colace 100 mg Capsule] 100 mg PO BID #60 capsule 04/15/16 Ferrous Sulfate [Feosol 325 mg Tablet] 325 mg PO BID #60 tablet 04/15/16 Ibuprofen [Motrin 800 mg Tablet] 800 mg PO Q8 #60 tablet 04/15/16 Gestational Age: 39.2 Reason(s) for Admission: Induction of Labor, PIH Procedures: NST Intrapartum Procedure(s): Spontaneous Vaginal Delivery - Data Baby 1 Male at 1 minute: 8 at 5 minutes: 9 Weight: 3510 kg Home with Mother: No Complications: Yes - low blood sugar - Diagnosis Test Laboratory: Temp Pulse Resp BP Pulse Ox 98.1 F 74 18 141/80 H 100 04/15/16 08:11 04/15/16 08:11 04/15/16 08:11 04/15/16 07:51 04/15/16 08:11 04/12/16 04/13/16 04/14/16 21:28 00:10 07:36 RBC 3.69 L 3.61 L Hgb 10.2 L 9.9 L Hct 31.0 L 30.1 L Urine Opiates Screen NEGATIVE - Discharge information/Instructions Discharge Activity: Activity As Tolerated, Balance Activity w/Rest, No Lifting Over 10 Pounds, No Lifting/Push/Pulling, Pelvic Rest, No tub bath Discharge Diet: Regular Disposition: HOME, SELF-CARE Follow [facility] in: 1, Weeks
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
--- NOTE | 2016-04-18 06:12 | L&D Current Admission ---
Current Admit Datetime Report Generated by CPN: 04/18/2016 06:00 ADMISSION INFORMATION Current Admit Date/Time: 04/13/2016 00:27 (04/13/2016 00:26:Cherelle Mendoza RN) Reason for Admission: Induction of Labor (04/13/2016 00:26:Cherelle Mendoza RN) Chief Complaint: Headache; Other (Annotations: Reports elevated home BP) (04/12/2016 21:41:Melinda Disla RN) EGA per Dates: 39.3 (04/13/2016 00:26:QS system process) Method of Arrival: Wheelchair (04/13/2016 00:26:Cherelle Mendoza RN) Admitted From: Home (04/13/2016 00:26:Cherelle Mendoza RN) Reason for Induction: Gestational Hypertension (04/13/2016 00:26:Cherelle Mendoza RN) Records Available: Yes (04/13/2016 00:26:Cherelle Mendoza RN) General Admission Information: Reviewed (04/13/2016 00:26:Cherelle Mendoza RN) General Admission Reviewed By: Taiwo Disla RN (04/12/2016 22:39:Melinda Disla RN) BELONGINGS/ADVANCED DIRECTIVES Valuables/Personal Effects: None (04/13/2016 00:26:Cherelle Mendoza RN) Other Belongings: see belongigng consent (04/13/2016 00:26:Cherelle Mendoza RN) Disposition of Belongings: Kept with Patient (04/13/2016 00:26:Cherelle Mendoza RN) Advance Direct for Healthcare: No, and Wants No Information (04/13/2016 00:26:Cherelle Mendoza RN) Durable Power of Mission Planner: No (04/13/2016 00:26:Cherelle Mendoza RN) Living Will: No (04/13/2016 00:26:Cherelle Mendoza RN) Organ Donor: No (04/13/2016 00:26:Cherelle Mendoza RN) Pt Rights Information Given: Yes (04/13/2016 00:26:Cherelle Mendoza RN) Pt Understands Pt Rights: Yes (04/13/2016 00:26:Cherelle Mendoza RN) LEARNING ASSESSMENT Knowledge Level: Understands L_D Process; Understands Care Activities; Had Pre-Hospital Education; Understands Diagnosis (04/13/2016 00:26:Cherelle Mendoza RN) Barriers to Learning: None (04/13/2016 00:26:Cherelle Mendoza RN) Learning Readiness: Motivated (04/13/2016 00:26:Cherelle Mendoza RN) Learns Best By: 1 to 1 Instruction (04/13/2016 00:26:Cherelle Mendoza RN) Learning Needs: Labor and Delivery Process; Pain Management; Symptoms to Report; Medication; Diagnosis; Nutrition; Equipment; Infant Care; Community Resources (04/13/2016 00:26:Cherelle Mendoza RN) DOMESTIC VIOLANCE SCREENING Dom Viol Threatened/Hurt: No (04/13/2016 00:26:Cherelle Mendoza RN) Hx of Abuse/Neglect past 2yrs: No (04/13/2016 00:26:Cherelle Mendoza RN) Feel Unsafe Going Home: No (04/13/2016 00:26:Cherelle Mendoza RN) Addt'l Observ Indicating Abuse: No (04/13/2016 00:26:Cherelle Mendoza RN) Reason Unable to Complete Screen: N/A, Screen Completed (04/13/2016 00:26:Cherelle Mendoza RN) Considered Personal Harm/Suicide: No (04/13/2016 00:26:Cherelle Mendoza RN) NUTRITIONAL/FUNCTIONAL SCREENING Problem with Appetite >5 Days: No (04/13/2016 00:26:Cherelle Mendoza RN) Chew/Swallow Difficulties: No (04/13/2016 00:26:Cherelle Mendoza RN) Inappropriate Wt Gain/Loss: No (04/13/2016 00:26:Cherelle Mendoza RN) Presence Skin Breakdown/Ulcer: No (04/13/2016 00:26:Cherelle Mendoza RN) Special Diet: No (04/13/2016 00:26:Cherelle Mendoza RN) Pt Requests Agricultural Research Technologist Visit: No (04/13/2016 00:26:Cherelle Mendoza RN) Hx of Any of the Following?: N/A (04/13/2016 00:26:Cherelle Mendoza RN) New Diagnosis of: N/A (04/13/2016 00:26:Cherelle Mendoza RN) Requires Assist w/Ambulation: No (04/13/2016 00:26:Cherelle Mendoza RN) Uses Assist Device to Ambulate: No (04/13/2016 00:26:Cherelle Mendoza RN) Pt Requires Help w/ADL's: No (04/13/2016 00:26:Cheerlle Mendoza RN)
--- NOTE | 2016-04-19 06:11 | L&D Current Admission ---
Current Admit Datetime Report Generated by CPN: 04/19/2016 06:00 ADMISSION INFORMATION Current Admit Date/Time: 04/13/2016 00:27 (04/13/2016 00:26:Cherelle Mendoza RN) Reason for Admission: Induction of Labor (04/13/2016 00:26:Cherelle Mendoza RN) Chief Complaint: Headache; Other (Annotations: Reports elevated home BP) (04/12/2016 21:41:Melinda Disla RN) EGA per Dates: 39.3 (04/13/2016 00:26:QS system process) Method of Arrival: Wheelchair (04/13/2016 00:26:Cheerlle Mendoza RN) Admitted From: Home (04/13/2016 00:26:Cherelle Mendoza RN) Reason for Induction: Gestational Hypertension (04/13/2016 00:26:Cherelle Mendoza RN) Records Available: Yes (04/13/2016 00:26:Cherelle Mendoza RN) General Admission Information: Reviewed (04/13/2016 00:26:Cherelle Mendoza RN) General Admission Reviewed By: Taiwo Disla RN (04/12/2016 22:39:Melinda Disla RN) BELONGINGS/ADVANCED DIRECTIVES Valuables/Personal Effects: None (04/13/2016 00:26:Cherelle Mendoza RN) Other Belongings: see belongigng consent (04/13/2016 00:26:Cherelle Mendoza RN) Disposition of Belongings: Kept with Patient (04/13/2016 00:26:Cherelle Mendoza RN) Advance Direct for Healthcare: No, and Wants No Information (04/13/2016 00:26:Cherelle Mendoza RN) Durable Power of Senior Bioinformatics Scientist: No (04/13/2016 00:26:Cherelle Mendoza RN) Living Will: No (04/13/2016 00:26:Cherelle Mendoza RN) Organ Donor: No (04/13/2016 00:26:Cherelle Mendoza RN) Pt Rights Information Given: Yes (04/13/2016 00:26:Cherelle Mendoza RN) Pt Understands Pt Rights: Yes (04/13/2016 00:26:Cherelle Mendoza RN) LEARNING ASSESSMENT Knowledge Level: Understands L_D Process; Understands Care Activities; Had Pre-Hospital Education; Understands Diagnosis (04/13/2016 00:26:Cherelle Mendoza RN) Barriers to Learning: None (04/13/2016 00:26:Cherelle Mendoza RN) Learning Readiness: Motivated (04/13/2016 00:26:Cherelle Mendoza RN) Learns Best By: 1 to 1 Instruction (04/13/2016 00:26:Cherelle Mendoza RN) Learning Needs: Labor and Delivery Process; Pain Management; Symptoms to Report; Medication; Diagnosis; Nutrition; Equipment; Infant Care; Community Resources (04/13/2016 00:26:Cherelle Mendoza RN) DOMESTIC VIOLANCE SCREENING Dom Viol Threatened/Hurt: No (04/13/2016 00:26:Cherelle Mendoza RN) Hx of Abuse/Neglect past 2yrs: No (04/13/2016 00:26:Cherelle Mendoza RN) Feel Unsafe Going Home: No (04/13/2016 00:26:Cherelle Mendoza RN) Addt'l Observ Indicating Abuse: No (04/13/2016 00:26:Cherelle Mendoza RN) Reason Unable to Complete Screen: N/A, Screen Completed (04/13/2016 00:26:Cherelle Mendoza RN) Considered Personal Harm/Suicide: No (04/13/2016 00:26:Cherelle Mendoza RN) NUTRITIONAL/FUNCTIONAL SCREENING Problem with Appetite >5 Days: No (04/13/2016 00:26:Cherelle Mendoza RN) Chew/Swallow Difficulties: No (04/13/2016 00:26:Cherelle Mendoza RN) Inappropriate Wt Gain/Loss: No (04/13/2016 00:26:Cherelle Mendoza RN) Presence Skin Breakdown/Ulcer: No (04/13/2016 00:26:Cherelle Mendoza RN) Special Diet: No (04/13/2016 00:26:Cherelle Mendoza RN) Pt Requests Cellophane Bath Mixer Visit: No (04/13/2016 00:26:Cherelle Mendoza RN) Hx of Any of the Following?: N/A (04/13/2016 00:26:Cherelle Mendoza RN) New Diagnosis of: N/A (04/13/2016 00:26:Cherelle Mendoza RN) Requires Assist w/Ambulation: No (04/13/2016 00:26:Cherelle Mendoza RN) Uses Assist Device to Ambulate: No (04/13/2016 00:26:Cherelle Mendoza RN) Pt Requires Help w/ADL's: No (04/13/2016 00:26:Cherelle Mendoza RN)
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
== END 2016-04-15 15:58 | disposition home or self-care (01) | DRG 775 ==
LOC: LC 21:12 → OBSVTOIN 22:13 → LR 22:13 → 2S 04-13 07:48
PROVIDERS: ADMIT Obstetrics & Gynecology; ATTEND Obstetrics & Gynecology
PROC: 3E0P7GC Introduction of Other Therapeutic Substance into Female Reproductive, Via Natural or Artificial Opening (ICD-10-PCS; 2016-04-12)
PROC: 4A1HXCZ Monitoring of Products of Conception, Cardiac Rate, External Approach (ICD-10-PCS; 2016-04-12)
PROC: 10E0XZZ Delivery of Products of Conception, External Approach (ICD-10-PCS; principal; 2016-04-13)
PROC: 10907ZC Drainage of Amniotic Fluid, Therapeutic from Products of Conception, Via Natural or Artificial Opening (ICD-10-PCS; 2016-04-13)
DX: O13.4 Gestational [pregnancy-induced] hypertension without significant proteinuria, complicating childbirth (principal); Z3A.39 39 weeks gestation of pregnancy; Z37.0 Single live birth
CPT/HCPCS: 36415; 80053; 80307; 81005; 83615; 84550; 85025; 85027; 86592; 86850; 86900; 86901; J0690; J2370; J2590; J3010; J3490